=== PATIENT | female | born 1965 | race Caucasian/White ===

== ENCOUNTER → 2022-08-31 23:59 | Outpatient (CLI) | payer MEDICARE, SELFPAY ==
[2022-08-31 19:04] LABS: Basophils % 0.8 % (0.1-2.0); Eosinophils # 0.1 K/mm3 (0.0-0.4); Eosinophils % 1.3 % (0.1-12.0); Hematocrit 42.4 % (37.0-47.0); Hemoglobin 13.5 g/dL (12.2-16.2); Lymphocytes # 1.7 K/mm3 (0.7-4.5); Mean Corpuscular HGB Conc 31.9 g/dL (31.8-35.4); Mean Corpuscular Hemoglobin 28.9 pg (27.0-31.2); Mean Corpuscular Volume 90.6 fl (81-99); Mean Platelet Volume 9.1 fl (7.4-10.4); Monocytes # 0.2 K/mm3 (0.1-1.0); Monocytes % 4.7 % (1.7-9.3); Neutrophils # 2.8 K/mm3 (1.8-7.8); Neutrophils % 58.2 % (37.0-80.0); Platelet Count 257 K/mm3 (142-424); Red Blood Count 4.68 M/mm3 (4.20-5.40); White Blood Count 4.9 K/mm3 (4.8-10.8)
[2022-08-31 19:14] LABS: Alanine Aminotransferase 23 U/L (12-78); Albumin Level 4.5 g/dl (3.5-5.0); Albumin/Globulin Ratio 1.6 (1.1-1.8); Alkaline Phosphatase 122 U/L (38-126); Anion Gap 9.3 mEq/L (5-15); Aspartate Amino Transferase 36 U/L (14-36); Bilirubin,Total 0.3 mg/dl (0.2-1.3); Blood Urea Nitrogen 13 mg/dl (7-17); Calcium 9.2 mg/dl (8.4-10.2); Carbon Dioxide 33 mmol/L (22.0-30.0); Chloride 97 mmol/L (98-107); Estimated Glomerular Filt Rate 87 ml/min (>60); GFR (African American) 105 ML/MIN (>60); Globulin 2.8 g/dL (1.3-3.2); Glucose 88 mg/dl (74-100); Potassium 4.3 mmoL/L (3.5-5.1); Sodium 135 mmol/L (136-145); Total Protein,Serum 7.3 g/dl (6.3-8.2)
[2022-08-31 19:46] LABS: Thyroid Stimulating Hormone 2.19 uIU/mL (0.465-4.68)
[2022-08-31 20:05] LABS: Vitamin B12 673 pg/mL (239-931)
[2022-09-05 04:07] LABS: Hep A Ab, IgM NEGATIVE; Hepatitis B Core Antibody IgM NEGATIVE; Hepatitis B Surface Antigen NEGATIVE; Hepatitis C Antibody NON REACTIVE
== END ==
PROVIDERS: PCP Family Medicine; Visit Provider Family Medicine
DX: Z00.00 Encounter for general adult medical examination without abnormal findings (principal); M25.50 Pain in unspecified joint; R56.1 Post traumatic seizures; F43.10 Post-traumatic stress disorder, unspecified; F17.210 Nicotine dependence, cigarettes, uncomplicated; Z79.899 Other long term (current) drug therapy
CPT/HCPCS: 80053; 80074; 82607; 84443; 85025

== ENCOUNTER → 2023-02-12 12:00 | Outpatient (CLI) | payer MEDICARE, SELFPAY ==
[2023-02-12 18:18] LABS: Chloride 104 mmol/L (98-107)
[2023-02-12 18:19] LABS: Potassium 4.4 mmoL/L (3.5-5.1); Sodium 141 mmol/L (136-145)
[2023-02-12 18:21] LABS: Alanine Aminotransferase 22 U/L (12-78); Aspartate Amino Transferase 33 U/L (14-36); Blood Urea Nitrogen 13 mg/dl (7-17); Estimated Glomerular Filt Rate 87 ml/min (>60); GFR (African American) 105 ML/MIN (>60)
[2023-02-12 18:22] LABS: Albumin Level 4.3 g/dl (3.5-5.0); Albumin/Globulin Ratio 1.3 (1.1-1.8); Alkaline Phosphatase 145 U/L (38-126); Anion Gap 10.4 mEq/L (5-15); Bilirubin,Total 0.3 mg/dl (0.2-1.3); Calcium 9.1 mg/dl (8.4-10.2); Carbon Dioxide 31 mmol/L (22.0-30.0); Globulin 3.3 g/dL (1.3-3.2); Glucose 106 mg/dl (74-100); Total Protein,Serum 7.6 g/dl (6.3-8.2)
== END ==
PROVIDERS: PCP Family Medicine; Visit Provider Family Medicine
DX: F43.10 Post-traumatic stress disorder, unspecified (principal); G40.909 Epilepsy, unspecified, not intractable, without status epilepticus
CPT/HCPCS: 80053

== ENCOUNTER → 2023-05-21 16:17 | Outpatient (CLI) | payer MEDICARE, MEDICAID, SELFPAY ==
--- NOTE | 2023-05-21 16:18 | MM_ITS ---
PROCEDURE INFORMATION: Exam: MG Bilateral Screening 3D Mammography Exam date and time: 05/21/2023 4:07 PM Age: 58 years old Clinical indication: Screening mammogram TECHNIQUE: Imaging protocol: Bilateral Screening tomosynthesis and 2D mammography including computer-aided detection (CAD) when performed. COMPARISON: 1. MG MM MAMMO DIGITAL JAKY SCREEN BILAT 05/15/2022 9:41 AM 2. MG MM MAMMO DIGITAL SCREENING W CAD BILAT 12/03/2019 7:40 AM FINDINGS: MAMMOGRAPHY: Breast composition: There are scattered areas of fibroglandular density. Mass: None. Architectural distortion: No new or suspicious architectural distortion. Calcifications: No new or suspicious calcifications are present Asymmetric density: No new or suspicious asymmetric density is present Skin thickening: None. Axillary adenopathy: None. IMPRESSION: No mammographic evidence of malignancy. Recommend annual screening mammography unless otherwise clinically indicated. ASSESSMENT: BI-RADS category 1: Negative
== END ==
PROVIDERS: PCP Family Medicine; Visit Provider Family Medicine
DX: Z12.31 Encounter for screening mammogram for malignant neoplasm of breast (principal)
CPT/HCPCS: 77063; 77067

== ENCOUNTER 2023-07-23 19:19 | Outpatient (CLI) | payer MEDICARE, MEDICAID, SELFPAY ==
[2023-07-23 19:49] LABS: Alanine Aminotransferase 22 U/L (12-78); Albumin Level 4.1 g/dl (3.5-5.0); Albumin/Globulin Ratio 1.5 (1.1-1.8); Alkaline Phosphatase 157 U/L (38-126); Aspartate Amino Transferase 32 U/L (14-36); Bilirubin,Total 0.2 mg/dl (0.2-1.3); Blood Urea Nitrogen 12 mg/dl (7-17); Calcium 9.2 mg/dl (8.4-10.2); Carbon Dioxide 35 mmol/L (22.0-30.0); Chloride 105 mmol/L (98-107); Estimated Glomerular Filt Rate 103 ml/min (>60); GFR (African American) 125 ML/MIN (>60); Globulin 2.8 g/dL (1.3-3.2); Glucose 97 mg/dl (74-100); Sodium 141 mmol/L (136-145); Total Protein,Serum 6.9 g/dl (6.3-8.2)
== END 2023-07-23 23:59 ==
LOC: LAB.DROPOF 19:19
PROVIDERS: PCP Family Medicine; Visit Provider Family Medicine
DX: F43.10 Post-traumatic stress disorder, unspecified (principal); G40.909 Epilepsy, unspecified, not intractable, without status epilepticus
CPT/HCPCS: 80053

== ENCOUNTER 2023-09-18 18:37 | Outpatient (CLI) | payer MEDICARE, MEDICAID, SELFPAY | END 2023-09-18 23:59 | disposition home or self-care (01) | LOC: LAB.DROPOF 18:40 | PROVIDERS: PCP Obstetrics & Gynecology; Visit Provider Obstetrics & Gynecology | DX: Z01.419 Encounter for gynecological examination (general) (routine) without abnormal findings (principal) ==

== ENCOUNTER 2024-06-01 16:14 | Outpatient (CLI) | payer MEDICARE, MEDICAID, SELFPAY ==
--- NOTE | 2024-06-01 16:14 | MM_ITS ---
PROCEDURE INFORMATION: Exam: MG Bilateral Screening 3D Mammography Exam date and time: 06/01/2024 4:04 PM Age: 59 years old Clinical indication: Screening examination. TECHNIQUE: Imaging protocol: Bilateral Screening tomosynthesis and 2D mammography including computer-aided detection (CAD) when performed. COMPARISON: 1. MG MM DIG SCREENING MAMM BI W/CAD 05/21/2023 4:07 PM 2. MG MM MAMMO DIGITAL JAKY SCREEN BILAT 05/15/2022 9:41 AM FINDINGS: MAMMOGRAPHY: Breast composition: There are scattered areas of fibroglandular density. Mass: None. Architectural distortion: None. Calcifications: No suspicious calcifications. Asymmetric density: None. Skin thickening: None. Axillary adenopathy: None. IMPRESSION: No mammographic evidence of malignancy. Annual screening is recommended unless otherwise clinically indicated. ASSESSMENT: BI-RADS Category 1: Negative.
== END 2024-06-01 23:59 | disposition home or self-care (01) ==
LOC: RAD 16:14
PROVIDERS: PCP Family Medicine; Visit Provider Nurse Practitioner
DX: Z12.31 Encounter for screening mammogram for malignant neoplasm of breast (principal)
CPT/HCPCS: 77063; 77067

== ENCOUNTER 2024-07-31 10:20 | Outpatient (CLI) | payer MEDICARE, MEDICAID, SELFPAY ==
[2024-07-31 20:03] LABS: HIV Combo NEGATIVE (Negative)
[2024-07-31 20:13] LABS: Hepatitis C Ab Qual. W/ RFX NEGATIVE (Negative)
== END 2024-07-31 23:59 | disposition home or self-care (01) ==
LOC: LAB.DROPOF 08-03 10:21
PROVIDERS: PCP Family Medicine; Visit Provider Family Medicine
DX: Z11.59 Encounter for screening for other viral diseases (principal)
CPT/HCPCS: 86803; 87389

== ENCOUNTER 2024-10-07 15:55 | Outpatient (CLI) | payer MEDICARE, MEDICAID, SELFPAY ==
[2024-10-07 19:06] LABS: Alanine Aminotransferase 20 U/L (12-78); Albumin Level 4.4 g/dl (3.5-5.0); Albumin/Globulin Ratio 1.6 (1.1-1.8); Alkaline Phosphatase 154 U/L (38-126); Anion Gap 6.1 mEq/L (5-15); Aspartate Amino Transferase 29 U/L (14-36); Bilirubin,Total 0.3 mg/dl (0.2-1.3); Blood Urea Nitrogen 14 mg/dl (7-17); Calcium 9.4 mg/dl (8.4-10.2); Carbon Dioxide 31 mmol/L (22.0-30.0); Chloride 104 mmol/L (98-107); Estimated Glomerular Filt Rate 103 ml/min (>60); GFR (African American) 125 ML/MIN (>60); Globulin 2.7 g/dL (1.3-3.2); Glucose 102 mg/dl (74-100); Potassium 4.1 mmoL/L (3.5-5.1); Sodium 137 mmol/L (136-145); Total Protein,Serum 7.1 g/dl (6.3-8.2)
== END 2024-10-07 23:59 | disposition home or self-care (01) ==
LOC: LAB.DROPOF 10-08 08:37
PROVIDERS: PCP Obstetrics & Gynecology; Visit Provider Obstetrics & Gynecology
DX: Z79.899 Other long term (current) drug therapy (principal)
CPT/HCPCS: 80053

== ENCOUNTER 2025-05-25 08:54 | Outpatient (CLI) | payer MEDICARE, MEDICAID, SELFPAY ==
--- OUTSIDE RECORDS SUMMARY | 2025-04-23 08:20 | XMS_ITS | Encounter Summary ---
Author Organization [place] [address] Care Team Providers Care Psychiatry Instructor Name Role Phone Unavailable Primary Care Provider Unavailabl e Reason for Referral * Mammography (Routine) - Pending Review Specialty Diagnoses / Procedures Referred By Lisa lamas Referred To Contact Radiology Diagnoses Encounter for screening mammogram for malignant neoplasm of breast Procedures MM MAMMO DIGITAL JAKY SCREEN Grant Arthur MD [facility] [place] [address] Phone: tel: fax: Referral ID Status Reason Start Date Expiration Date V isits Requested Visits Authorized [id number] Pending Review 04/19/2025 04/19/2027 1 1 Reason for Visit * Mammography (Routine) - Pending Review Specialty Diagnoses / Procedures Referred By Lisa lamas Referred To Contact Radiology Diagnoses Encounter for screening mammogram for malignant neoplasm of breast Procedures MM MAMMO DIGITAL JAKY SCREEN Grant Arthur MD [facility] [place] [address] Phone: tel: fax: Referral ID Status Reason Start Date Expiration Date V isits Requested Visits Authorized [id number] Pending Review 04/19/2025 04/19/2027 1 1 Encounter Details Date Type Department Care Team (Latest Contact Info) Description 04/23/2025 8:20 AM EST - 04/23/2025 11:59 PM EST Hospital Encounter [facility] [address] [place] [address] Grant Griffith MD [address] [place] [facility] [address] [place] [address] Encounter for screening mammogram for malignant neoplasm of breast Discharge Disposition: Home or Self Care Social History Tobacco Use Types Packs/Day Years Used Date Smoking Tobacco: Every Day Cigarettes 1 38.9 Started: 06/23/1986 Smokeless Tobacco: Never Alcohol Use Standard Drinks/Week Comments No 0 (1 standard drink = 0.6 oz pur e alcohol) PHQ-2 Answer Date Recorded PHQ-2 Score 0 05/21/2019 Comments No Sex and Gender Information Value Date Recorded Sex Assigned at Female 04/24/2025 6:54 PM EST Legal Sex Female 9:48 PM EDT Gender Identity Not on file Sexual Orientation Not on file documented as of this encounter Last Filed Vital Signs Vital Sign Reading Time Taken Comments Blood Pressure - - Pulse - - Temperature - - Respiratory Rate - - Oxygen Saturation - - Inhaled Oxygen Concentration - - Weight 54.9 kg (121 lb) 04/23/2025 8:23 AM EST Height 154.9 cm (5' 1 ) 04/23/2025 8:23 AM EST Body Mass Index 22.86 04/23/2025 8:23 AM EST documented in this encounter Functional Status * Is the person deaf or does he/she have serious difficulty hearing? Answer Date of Assessment Author No 05/21/2019 8:55 AM EST Francine Huntley RMA * Is the person blind or does he/she have serious difficulty seeing even when wearing glasses? Answer Date of Assessment Author No 05/21/2019 8:55 AM EST Francine Huntley RMA * Does this person have serious difficulty walking or climbing stairs? Answer Date of Assessment Author No 05/21/2019 8:55 AM Francine Thompson RMA * Does this person have difficulty dressing or bathing? Answer Date of Assessment Author No 05/21/2019 8:55 AM Francine Thompson RMA * Because of a physical, mental or emotional condition, does this person have difficulty doing errands alone such as visiting a doctor's office or shopping? Answer Date of Assessment Author No 05/21/2019 8:55 AM Francine Thompson RMA documented as of this encounter Mental Status * Because of a physical, mental or emotional condition, does this person have serious difficulty concentrating, remembering or making decisions? Answer Entry Date Author No 05/21/2019 8:55 AM Francine Thompson RMA documented in this encounter Medications at Time of Discharge atorvastatin (LIPITOR) 20 mg Oral TabletIndications:Hy perlipidemia, unspecified hyperlipidemia type TAKE 1 TABLET EVERY DAY 90 Tab 1 03/29/2020 diphenhydrAMINE (BENADRYL) 25 mg Oral Tablet Take 1 Tab by mouth every 8 hours as needed for Sleep. 12 Tab 06/27/2016 estradioL (ESTRACE) 0.5 mg Oral TabletIndications:At rophic vaginitis TAKE 1 TABLET EVERY DAY 90 Tab 05/16/2020 fish oil-omega-3 fatty acids 340-1,000 mg capsule Take 2 g by mouth daily. hydrOXYzine (ATARAX) 10 mg Oral TabletIndications:GA D (generalized anxiety disorder) TAKE 1 TABLET EVERY NIGHT 90 Tab 2 12/24/2019 levETIRAcetam (KEPPRA) 500 mg Oral Tablet Take 1 Tablet by mouth 2 times daily. 180 Tablet 2 03/27/2022 LEVOthyroxine (SYNTHROID) 25 mcg Oral TabletIndications:Hy pothyroidism (acquired) Take 1 Tab by mouth daily. 90 Tab 1 05/21/2019 melatonin 5 mg Oral Tablet Take 1-2 Tabs by mouth nightly as needed. MULTI-VITAMIN ORAL Take by mouth. mv-min/iron/folic/ca lcium/vitK (WOMEN'S MULTIVITAMIN ORAL) Take by mouth daily. ondansetron (ZOFRAN-ODT) 4 mg Oral Tablet, Rapid DissolveIndications: Migraine without aura and without status migrainosus, not intractable Take 1 Tab by mouth every 8 hours as needed for Nausea. 45 Tab 2 03/05/2018 OXcarbazepine (TRILEPTAL) 300 mg Oral TabletIndications:Ep ilepsy, focal (HCC) Take 1 Tablet by mouth 2 times daily. 180 Tablet 2 03/27/2022 pantoprazole (PROTONIX) 40 mg Oral Tablet, Delayed Release (E.C.)Indications:Ga stroesophageal reflux disease Take 1 Tablet by mouth daily. 90 Tablet 2 03/27/2022 propranoloL (INDERAL LA) 80 mg Oral Capsule,Sustained Action 24 hrIndications:Chroni c nonintractable headache, unspecified headache type TAKE 1 CAPSULE EVERY DAY 90 Cap 2 12/24/2019 sertraline (ZOLOFT) 100 mg Oral TabletIndications:GA D (generalized anxiety disorder) Take 2 Tablets by mouth daily. 180 Tablet 2 03/27/2022 sodium,potassium,mag sulfates 17.5-3.13-1.6 gram Oral Recon Soln Take 6 oz by mouth 2 times daily. 177 mL 07/18/2022 tiZANidine (ZANAFLEX) 4 mg Oral TabletIndications:Ch ronic nonintractable headache, unspecified headache type Take 1 Tablet by mouth 3 times daily. 270 Tablet 03/27/2022 UNKNOWN TO PATIENT Eye drops for redness relief prn documented as of this encounter Discharge Disposition Disposition Code Departure Means Destination Home or Self Care documented in this encounter Plan of Treatment Upcoming Encounters Date Type Department Care Team (Late st Contact Info) Description 06/07/2025 10:00 AM EST Office Visit [facility] Neurology [facility] [address] [place] [address] Benjamin Terry MD [address] [place] [address] documented as of this encounter Goals Goal Patient Goal Type Associated Problems Recent Progress Patient-Stated? Author Maintain a healthy diet, exercise regularly and maintain an ideal body weight General No Francine Huntley RMA Stay Tobacco Free Lifestyle No Francine Huntley RMA documented as of this encounter Procedures Procedure Name Priority Date/Time Associated Diagnosis Comments MM MAMMO DIGITAL JAKY SCREEN BILAT Routine 04/23/2025 8:24 AM EST Encounter for screening mammogram for malignant neoplasm of breast documented in this encounter Results * MM MAMMO DIGITAL JAKY SCREEN BILAT (04/23/2025 8:24 AM EST) Anatomical Region Laterality Modality Breast Bilateral Mammography 04/23/2025 8:24 AM EST Impressions 04/26/2025 7:32 AM EST Benign ([id number]) RECOMMENDATION: Routine Screening Mammogram in 1 Year Bilateral . . COMMENTS: For patients with heterogeneously dense, or extremely dense breast tissue: At [facility], all mammography studies are performed using tomosynthesis. Tomosynthesis is considered a supplemental screening tool for dense breast tissue. Breast MRI and complete breast ultrasound are also considered supplemental tests for dense breast tissue. These may not be covered by insurance. DISCLAIMER *The patient was notified by MyChart or mail of the results for this examination. *The patient's information was entered into a reminder system with a target due date for the next breast imaging, in accordance with the [place] [employer] and the Society of Breast Imaging recommendations. *Breast Imaging has a false negative rate of 15%. *Any patient with a palpable abnormality, unexplained by breast imaging, should be managed on a clinical basis by the attending physician. Narrative 04/26/2025 7:32 AM EST EXAM: MM MAMMO DIGITAL JAKY SCREEN BILAT EXAM DATE: 04/23/2025 8:24 AM INDICATION: Z12.31-Encounter for screening mammogram for malignant neoplasm of [id number] COMPARISON STUDIES: Compared with prior studies the most recent being 05/15/2022 MM MAMMO DIGITAL JAKY SCREEN BILAT at [facility] 12/03/2019 MM MAMMO DIGITAL SCREENING W CAD BILAT at [facility] 11/24/2018 MM MAMMO DIGITAL SCREENING W CAD BILAT at [facility] TISSUE DENSITY: There are scattered areas of fibroglandular density. FINDINGS: No mammographic evidence of malignancy. Scattered vascular calcification is noted on the right, unchanged. Procedure Note Gama Barajas MD - 04/26/2025 EXAM: MM MAMMO DIGITAL JAKY SCREEN BILAT EXAM DATE: 04/23/2025 8:24 AM INDICATION: Z12.31-Encounter for screening mammogram for malignantneoplasm of [id number] COMPARISON STUDIES: Compared with prior studies the most recent being 05/15/2022 MM MAMMO DIGITAL JAKY SCREEN BILAT at [facility] 12/03/2019 MM MAMMO DIGITAL SCREENING W CAD BILAT at [facility] 11/24/2018 MM MAMMO DIGITAL SCREENING W CAD BILAT at [facility] TISSUE DENSITY: There are scattered areas of fibroglandular density. FINDINGS: No mammographic evidence of malignancy. Scattered vascular calcification is noted on the right, unchanged. IMPRESSION: Benign ([id number]) RECOMMENDATION: Routine Screening Mammogram in 1 Year Bilateral . . COMMENTS: For patients with heterogeneously dense, or extremely dense breast tissue:At [facility], all mammography studies are performed usingtomosynthesis. Tomosynthesis is considered a supplemental screening tool for densebreast tissue. Breast MRI and complete breast ultrasound are also considered supplemental tests for dense breast tissue. These may not be covered by insurance. DISCLAIMER *The patient was notified by MyChart or mail of the results for this examination. *The patient's information was entered into a reminder system with atarget due date for the next breast imaging, in accordance with the [place] [employer] and the Society of Breast Imaging recommendations. *Breast Imaging has a false negative rate of 15%. *Any patient with a palpable abnormality, unexplained by breast imaging,should be managed on a clinical basis by the attending physician. Grant Griffith MD IMG MAMMOGRAPHY ORDERABLE S Final Result documented in this encounter Visit Diagnoses Diagnosis Encounter for screening mammogram for malignant neoplasm of breast Other screening mammogram documented in this encounter
[2025-05-25 19:10] LABS: Alanine Aminotransferase 20 U/L (12-78); Albumin Level 4.5 g/dl (3.5-5.0); Albumin/Globulin Ratio 1.7 (1.1-1.8); Alkaline Phosphatase 114 U/L (38-126); Anion Gap 8.8 mEq/L (5-15); Aspartate Amino Transferase 32 U/L (14-36); Bilirubin,Total 0.5 mg/dl (0.2-1.3); Blood Urea Nitrogen 17 mg/dl (7-17); Calcium 9.3 mg/dl (8.4-10.2); Carbon Dioxide 31 mmol/L (22.0-30.0); Chloride 100 mmol/L (98-107); Creatinine,Serum 0.80 mg/dl (0.52-1.04); Estimated Glomerular Filt Rate 74 ml/min (>60); GFR (African American) 89 ML/MIN (>60); Globulin 2.7 g/dL (1.3-3.2); Glucose 123 mg/dl (74-100); Potassium 3.8 mmoL/L (3.5-5.1); Sodium 136 mmol/L (136-145); Total Protein,Serum 7.2 g/dl (6.3-8.2)
--- OUTSIDE RECORDS SUMMARY | 2025-05-28 09:00 | XMS_ITS | Encounter Summary ---
Author Organization [place] [address] Care Team Providers Care Electronic Components Assembler Name Role Phone Unavailable Primary Care Provider Unavailabl e Reason for Visit * Reason Onset Date Comments Medication Refill 04/25/2025 Encounter Details Date Type Department Care Team (Late st Contact Info) Description 04/24/[address] [facility] [address] [place] [id number] Shreyas Azevedo MD [address] [place] [address] Medication Refill Social History Tobacco Use Types Packs/Day Years [...] on file documented as of this encounter Functional Status * Is the person deaf or does he/she have serious difficulty hearing? Answer Date of Assessment Author No 05/21/2019 8:55 AM EST Francine Huntley RMA * Is the person blind or does he/she have serious difficulty seeing even when wearing glasses? Answer Date of Assessment Author No 05/21/2019 8:55 AM Francine Thompson RMDeana * Does this person have serious difficulty walking or climbing stairs? Answer Date of Assessment Author No 05/21/2019 8:55 AM EST Francine Huntley RMA * Does this person have difficulty dressing or bathing? Answer Date of Assessment Author No 05/21/2019 8:55 AM EST [place] FrancineRADHA * Because of a physical, mental or emotional condition, does this person have difficulty doing errands alone such as visiting a doctor's office or shopping? Answer Date of Assessment Author No 05/21/2019 8:55 AM JASBIR [place] FrancineRADHA documented as of this encounter Mental Status * Because of a physical, mental or emotional condition, does this person have serious difficulty concentrating, remembering or making decisions? Answer Entry Date Author No 05/21/2019 8:55 AM EST Francine Huntley RADHA documented in this encounter Plan of Treatment Upcoming Encounters Date Type Department Care Team (Late st Contact Info) Description 06/07/2025 10:00 AM EST Office Visit SE[facility] Neurology [facility] [address] [place] [address] Benjamin Terry MD [address] [place] [address] documented as of this encounter Goals Goal Patient Goal Type Associated Problems Recent Progress Patient-Stated? Author Maintain a healthy diet, exercise regularly and maintain an ideal body weight General No Francine Huntley RMA Stay Tobacco Free Lifestyle No Francine Huntley RMA documented as of this encounter Visit Diagnoses Diagnosis Migraine without aura and without status migrainosus, not intractable Migraine without aura, without mention of intractable migraine without mention of status migrainosus Chronic nonintractable headache, unspecified headache type JAN (generalized anxiety disorder) Generalized anxiety disorder documented in this encounter
--- OUTSIDE RECORDS SUMMARY | 2025-05-28 09:00 | XMS_ITS | Clinical Summary ---
Author Organization [facility] Address [address] [place] [address] Care Team Providers Care Infant Childcare Provider Name Role Phone Janeen Alegria MD Primary Care Provider [phone] Source Comments This information has been disclosed to you from confidential records protectedfrom disclosure by state law. You shall make no further disclosure of thisinformation without the specific, written, and informed release of theindividual to whom it pertains, or as otherwise permitted by law. A generalauthorization for the release of medical or other information is not sufficientfor the purposes of therelease of HIV test results or diagnoses. [id number] Allergies Active Allergy Reactions Criticality Noted Date Comments Aspirin High 06/20/2013 Hives, itching Codeine High 06/20/2013 rash Nsaids (Non-Steroidal Anti-Inflammatory Drug) Medium 06/20/2013 History of Hepatitis A Medications fish oil-omega-3 fatty acids 300-1,000 mg capsule Take 2 g by mouth daily. Active valproic acid (DEPAKENE) 250 mg capsule Take 750 mg by mouth 3 times a day. Active gabapentin (NEURONTIN) 300 MG capsule Take 300 mg by mouth 3 times a day. Active propranolol (INDERAL) 80 MG tablet Take 80 mg by mouth 3 times a day. Active sertraline (ZOLOFT) 100 MG tablet Take 100 mg by mouth daily. Active tiZANidine (ZANAFLEX) 4 MG capsule Take 4 mg by mouth 3 times a day. Active promethazine (PHENERGAN) 25 MG tablet Take 25 mg by mouth every 6 hours as needed for Nausea. Active multivitamin (MULTIVITAMIN) tablet Take 1 tablet by mouth daily. Active HYDROcodone-acet aminophen (NORCO) 5-325 mg per tablet Take 1 tablet by mouth every 4 hours. Active Social History Tobacco Use Types Packs/Day Years Used Date Smoking Tobacco: Every Day Cigarettes Alcohol Use Standard Drinks/Week Comments No 0 (1 standard drink = 0.6 oz pur e alcohol) Comments No Sex and Gender Information Value Date Recorded Sex Assigned at Not on file Legal Sex Female 4:14 PM EST Gender Identity Not on file Sexual Orientation Not on file Last Filed Vital Signs Vital Sign Reading Time Taken Comments Blood Pressure 123/53 01/05/2014 5:00 PM EDT Pulse 62 01/05/2014 5:15 PM EDT Temperature 36.4 C (97.5 F) 01/05/2014 5:15 PM EDT Respiratory Rate 12 01/05/2014 5:15 PM EDT Oxygen Saturation 97% 01/05/2014 5:15 PM EDT Inhaled Oxygen Concentration 97% 01/05/2014 5 :15 PM EDT Weight 65.8 kg (145 lb 1 oz) 01/05/2014 11:30 AM EDT Height 154.9 cm (5' 1 ) 06/20/2013 9:52 AM EST Body Mass Index 27.41 06/20/2013 9:52 AM EST Plan of Treatment Not on file Medical Devices Implanted Type Area Engineering Consultant Device Identifier Shelf Expiration Date Model / Serial / Lot Allograft Ovation Lg - [id number] Implanted:Qty: 1 on 01/05/2014 by David Salas DPM at [facility] Graft Left: [facility] 09/30/2015 [id number] / / [id number] Nexfix Screw - [id number] Implanted:Qty: 2 on 01/05/2014 by David Salas DPM at [facility] Screw Left: [employer] [id number] / / Explanted Type Area Engineering Consultant Device Identifier Shelf Expiration Date Model / Serial / Lot Kwire 1.1mm - [id number] Explanted:Qty: 2 on 01/05/2014 by David Salas DPM at [facility] Wire Left: [employer] [id number] / / Insurance [employer] G[employer]US MEDICARE Care Teams Infant Childcare Provider Relationship Specialty Start Date End Date Janeen Alegria MD PCP - General Family Medicine 01/05/14
--- OUTSIDE RECORDS SUMMARY | 2025-05-28 09:00 | XMS_ITS | Continuity of Care Document ---
Author Organization [facility] Address [address] [place] [address] Phone Care Team Providers Care Capsule Filling Machine Operator Name Role Phone Unavailable Primary Care Provider Unavailabl e Encounters Date Type Department Care Team Description 04/24/2025 Refill [facility] [address] [place] [address] Shreyas Azevedo MD Medication Refill 04/24/2025 Refill [facility] [address] [place] [address] Melissa Funes MD Medication Refill 04/23/2025 8:20 AM EST - 04/23/2025 11:59 PM [facility] Hospital Encounter [place] [facility] [address] [place] [address] Grant Griffith MD Encounter for screening mammogram for malignant neoplasm of breast Discharge Disposition: Home or Self Care 07/18/2022 Telephone [facility] [address] [facility] [address] [facility] [place] [address] Grayson Christine MD Colonoscopy; Medication Management 06/11/2022 Refill [facility] [address] [place] [address] Melissa Funes MD Medication Refill 05/15/2022 Travel 05/15/2022 9:29 AM EST - 05/15/2022 11:59 PM EST Hospital Encounter [facility] [address] [place] [address] Gokul Cardona MD Encounter for screening mammogram for malignant neoplasm of breast Discharge Disposition: Home or Self Care 03/27/2022 Refill [facility] [place] [address] Melvina Lopez RMA Medication Refill 06/01/2020 Refill [facility] 100 [facility] [place] [address] Shreyas Azevedo MD Medication Refill 05/14/2020 Refill [facility] [address] [facility] [place] [address] Shreyas Azevedo MD Medication Refill 03/28/2020 Refill [facility] [address] [facility] [place] [address] Shreyas Azevedo MD Medication Refill 03/24/2020 Refill [facility] 100 [facility] [place] [address] Shreyas Azevedo MD Medication Refill 2020 Refill [facility] 100 [facility] [place] [address] Shreyas Azevedo MD Medication Refill 12/23/2019 Refill [facility] [address] [facility] [place] [address] Shreyas Azevedo MD Medication Refill 12/17/2019 Travel 12/17/2019 10:30 AM EDT Office Visit [facility] [address] [facility] [place] [address] Shreyas Azevedo MD Annual physical exam (Primary Dx); Chronic nonintractable headache, unspecified headache type; Epilepsy, focal (HCC); JAN (generalized anxiety disorder); Hypothyroidism (acquired); Hyperlipidemia, unspecified hyperlipidemia type 12/03/2019 Travel 12/03/2019 7:30 AM EDT - 12/03/2019 11:59 PM EDT Hospital Encounter [facility] [address] [place] [address] Shreyas Azevedo MD Encounter for screening mammogram for malignant neoplasm of breast Discharge Disposition: Home or Self Care 11/24/2019 Telephone [facility] [address] [place] [address] Shreyas Azevedo MD Other 11/18/2019 Travel 11/05/2019 Refill [facility] [address] [place] [address] Shreyas Azevedo MD Medication Refill 10/15/2019 Travel 10/15/2019 Patient Outreach [facility] [address] [place] [address] Shreyas Azevedo MD Central Patient Navigator Outreach 10/09/2019 Refill [facility] [address] [place] [address] Shreyas Azevedo MD Medication Refill 10/08/2019 Refill [facility] [address] [place] [address] Shreyas Azevedo MD Medication Refill 06/09/2019 Refill [facility] [address] [place] [address] Shreyas Azevedo MD Medication Refill 05/25/2019 Orders Only [facility] [address] [place] [address] Shreyas Azevedo MD Chronic nonintractable headache, unspecified headache type 05/22/2019 1:40 PM EST - 05/22/2019 11:59 PM EST Hospital Encounter [facility] [address] [place] [address] Hypothyroidism (acquired); Hyperlipidemia, unspecified hyperlipidemia type Discharge Disposition: Home or Self Care 05/21/2019 8:45 AM EST Office Visit [facility] [address] [place] [address] Shreyas Azevedo MD Hypothyroidism (acquired) (Primary Dx); Atrophic vaginitis; Gastroesophageal reflux disease, esophagitis presence not specified; Chronic nonintractable headache, unspecified headache type; JAN (generalized anxiety disorder); Hyperlipidemia, unspecified hyperlipidemia type; Flu vaccine need; Epilepsy, focal (HCC) 05/20/2019 Refill [facility] [address] [place] [address] Shreyas Azevedo MD Medication Refill 05/20/2019 Patient Outreach [facility] [address] [place] [address] Shreyas Azevedo MD Central Patient Navigator Outreach 02/11/2019 8:33 AM EDT - 02/11/2019 11:59 PM EDT Hospital Encounter [facility] [address] [place] [address] Provider, Not In Epic Special sensory attacks (HCC); Shakes; Neuralgia; Cerebral aneurysm, nonruptured; Neck rigid Discharge Disposition: Home or Self Care 01/19/2019 Refill [facility] [address] [place] [address] Shreyas Azevedo MD Medication Refill 12/17/2018 8:15 AM EDT Office Visit [facility] [address] [place] [address] Shreyas Azevedo MD Annual physical exam (Primary Dx) 12/09/2018 Travel 12/09/2018 8:30 AM EDT - 12/09/2018 9:00 AM EDT Surgery [facility] [place] [address] Grayson Christine MD COLONOSCOPY-ENDO DEPT ONLY (ANESTHESIA) 12/09/2018 8:15 AM EDT Anesthesia Event [facility] [place] [address] Todd Sr MD Braxton-Brown, Jennifer, APRN 12/09/2018 6:07 AM EDT - 12/09/2018 9:30 AM EDT Hospital Encounter [facility] [place] [address] Grayson Christine MD Special screening for malignant neoplasms, colon Discharge Disposition: Home or Self Care 12/03/2018 Telephone [facility] [address] [facility] [address] [place] [address] Grayson Christine MD Other 11/24/2018 12:23 PM EDT - 11/24/2018 11:59 PM EDT Hospital Encounter [facility] [address] [place] [address] Encounter for screening mammogram for malignant neoplasm of breast Discharge Disposition: Home or Self Care 11/12/2018 11:00 AM EDT Office Visit [facility] [address] [place] [address] Shreyas Azevedo MD Epilepsy, focal (HCC) (Primary Dx); Nonintractable epilepsy without status epilepticus, unspecified epilepsy type (HCC); History of traumatic brain injury 11/06/2018 12:20 PM EDT - 11/06/2018 11:59 PM EDT Hospital Encounter [facility] [address] [place] [address] Nonintractable epilepsy without status epilepticus, unspecified epilepsy type (HCC); Hypothyroidism (acquired); Hyperlipidemia, unspecified hyperlipidemia type Discharge Disposition: Home or Self Care 11/03/2018 Refill [facility] [address] [place] [address] Shreyas Azevedo MD Medication Refill 10/21/2018 Telephone [facility] [address] [place] [address] Deyvi Moreno, Other 10/21/2018 Telephone [facility] [address] [place] [address] Stormy Read MD Colonoscopy (clinical note-screening) 10/13/2018 Patient Outreach [facility] [address] [place] [address] Yari Rodriguez, RN Care Management - Chart Review; ED Follow-Up Call 10/13/2018 10:15 AM EDT Office Visit [facility] [address] [place] [address] Shreyas Azevedo MD Right hip pain (Primary Dx); Screening for colon cancer 10/11/2018 9:25 AM EDT - 10/11/2018 10:38 AM EDT [facility] [address] [place] [address] Yoshi Doyle MD Contusion of right hip, initial encounter (Primary Dx) Discharge Disposition: Home or Self Care 09/01/2018 1:30 PM EDT Office Visit [facility] [address] [place] [address] Shreyas Azevedo MD Screening for colon cancer (Primary Dx); Hyperlipidemia, unspecified hyperlipidemia type; Atrophic vaginitis; History of traumatic brain injury; Nonintractable epilepsy without status epilepticus, unspecified epilepsy type (HCC); Hypothyroidism (acquired); Gastroesophageal reflux disease, esophagitis presence not specified; Chronic nonintractable headache, unspecified headache type; JAN (generalized anxiety disorder) 03/06/2018 4:35 PM EDT - 03/06/2018 11:59 PM EDT Hospital Encounter [facility] [address] [place] [address] History of traumatic brain injury; Annual physical exam; Hyperlipidemia, unspecified hyperlipidemia type Discharge Disposition: Home or Self Care 03/06/2018 Telephone [facility] [address] [place] [address] Shreyas Azevedo MD Prior Authorization 03/05/2018 1:45 PM EDT Office Visit [facility] [address] [place] [address] Shreyas Azevedo MD Annual physical exam (Primary Dx); Hyperlipidemia, unspecified hyperlipidemia type; Atrophic vaginitis; History of traumatic brain injury; Nonintractable epilepsy without status epilepticus, unspecified epilepsy type (HCC); Hypothyroidism (acquired); Migraine without aura and without status migrainosus, not intractable; Gastroesophageal reflux disease, esophagitis presence not specified; Chronic nonintractable headache, unspecified headache type; JAN (generalized anxiety disorder) 02/06/2018 Refill [facility] [address] [place] [address] Shreyas Azevedo MD Medication Refill 01/09/2018 Telephone [facility] [address] [facility] [place] [address] Shreyas Azevedo MD Orders 12/05/2017 Telephone [facility] 100 [facility] [place] [address] Shreyas Azevedo MD Medication Refill 12/03/[address] [place] [address] Shreyas Azevedo MD Medication Refill 12/03/2017 2:15 PM EDT Office Visit [address] [address] Shreyas Azevedo MD Annual physical exam (Primary Dx); History of traumatic brain injury; Nonintractable epilepsy without status epilepticus, unspecified epilepsy type (HCC); Chronic nonintractable headache, unspecified headache type; JAN (generalized anxiety disorder) 12/02/2017 Patient Outreach [address] [place] [address] Yari Rodriguez RN Care Management - Chart Review; ED Follow-Up Call 11/30/2017 5:35 PM EDT - 11/30/2017 7:24 PM EDT [facility] [place] [address] Andrei Cortes MD Right hip pain (Primary Dx) Discharge Disposition: Home or Self Care 11/28/2017 Telephone [place] [address] [place] [address] Shreyas Azevedo MD Appointment Needed 11/19/[address] [address] hSreyas Azevedo MD Medication Refill 09/25/2017 Refill [facility] [address] [place] [address] Shreyas Azevedo MD Medication Refill 09/16/2017 1:45 PM EDT - 09/16/2017 11:59 PM EDT Hospital Encounter [facility] [address] [place] [address] Shreyas Azevedo MD Screening for malignant neoplasm of breast Discharge Disposition: Home or Self Care 07/19/2017 2:00 PM EST - 07/19/2017 11:59 PM EST Hospital Encounter [facility] [address] [place] [address] Screening for colon cancer Discharge Disposition: Home or Self Care 07/18/2017 1:00 PM EST Office Visit [address] [address] Shreyas Azevedo MD Onychomycosis (Primary Dx); History of traumatic brain injury; Nonintractable epilepsy without status epilepticus, unspecified epilepsy type (HCC); Hypothyroidism (acquired); Gastroesophageal reflux disease, esophagitis presence not specified; Chronic nonintractable headache, unspecified headache type; JAN (generalized anxiety disorder); Hyperlipidemia, unspecified hyperlipidemia type; Need for influenza vaccination 07/11/[address] [address] Shreyas Azevedo MD Medication Refill 05/23/2017 9:10 AM EST Office Visit [facility] Crit [address] [place] [address] Sherie Gomez MD Atrophic vaginitis (Primary Dx); Well woman exam with routine gynecological exam; Surgical menopause 05/14/2017 Patient Outreach [address] [address] Yari Rodriguez RN Care Management - Chart Review (ER DISCHARGE REVIEW. ); ED Follow-Up Call 05/14/2017 9:00 AM EST Office Visit [address] [address] Shreyas Azevedo MD Paronychia of finger, left (Primary Dx) 05/12/2017 6:46 AM EST - 05/12/2017 7:54 AM EST Emergency [facility] [address] [place] [address] Jordin Lambert MD Paronychia of left index finger (Primary Dx); Lymphangitis Discharge Disposition: Home or Self Care 05/08/2017 Refill [facility] 100 [facility] [place] [address] Shreyas Azevedo MD Medication Refill 05/06/2017 Refill [facility] [address] [facility] [place] [address] Shreyas Azevedo MD Medication Refill 04/30/2017 2:40 PM EST Office Visit [address] [place] [address] Larry Goodman MD Chronic sinusitis, unspecified location (Primary Dx); Dysosmia 04/03/[address] [place] [address] Larry Goodman MD Results 04/03/[address] [place] [address] Larry Goodman MD Orders 03/29/2017 12:56 PM EDT - 03/29/2017 11:59 PM EDT Hospital Encounter [facility] [address] [place] [address] Larry Goodman MD Chronic sinusitis, unspecified location; Smell disturbance Discharge Disposition: Home or Self Care 03/25/2017 11:15 AM EDT Office Visit [facility] [address] [place] [address] Larry Goodman MD Chronic sinusitis, unspecified location (Primary Dx); Smell disturbance 03/06/2017 Refill [facility] [address] [place] [address] Shreyas Azevedo MD Medication Refill 02/28/2017 9:05 AM EDT - 02/28/2017 11:59 PM EDT Hospital Encounter [facility] [address] [facility] [place] [address] Acute hepatitis B Discharge Disposition: Home or Self Care 02/28/2017 8:00 AM EDT Office Visit [facility] 100 [facility] [place] [address] Shreyas Azevedo MD Gastroesophageal reflux disease, esophagitis presence not specified (Primary Dx); History of traumatic brain injury; Nonintractable epilepsy without status epilepticus, unspecified epilepsy type (HCC); Hypothyroidism (acquired); Chronic nonintractable headache, unspecified headache type; JAN (generalized anxiety disorder); Screening for colon cancer; Need for influenza vaccination; History of hepatitis B 02/27/2017 Refill [facility] 100 [facility] [place] [address] Shreyas Azevedo MD Medication Refill 02/18/2017 10:45 AM EDT Office Visit [facility] [address] [place] [address] Larry Goodman MD Nasal congestion (Primary Dx); Chronic sinusitis, unspecified location 01/03/2017 Orders Only [facility] 100 [facility] [place] [address] Erica Calix, JUDIE Hyperlipidemia, unspecified hyperlipidemia type (Primary Dx) 01/03/2017 Telephone [facility] 100 [place] [address] Shreyas Azevedo MD Other 01/01/2017 Orders Only [facility] [address] [place] [address] Johnna Roque, RMA Hyperlipidemia with target LDL less than 100 (Primary Dx) 01/01/2017 Telephone [facility] 100 [facility] [address] Shreyas Azevedo MD Neck Pain 12/28/2016 6:05 PM EDT - 12/28/2016 11:59 PM EDT Hospital Encounter [facility] [place] [address] Nonintractable epilepsy without status epilepticus, unspecified epilepsy type (HCC); Encounter for therapeutic drug monitoring Discharge Disposition: Home or Self Care 12/28/2016 7:54 AM EDT - 12/28/2016 6:04 PM EDT Hospital Encounter [facility] [address] [place] [address] Acute hepatitis B; Annual physical exam Discharge Disposition: Home or Self Care 12/28/2016 8:00 AM EDT Office Visit [facility] 100 [place] [address] Melissa Funes MD Epilepsy, focal (HCC) (Primary Dx); Nonintractable epilepsy without status epilepticus, unspecified epilepsy type (HCC); Encounter for therapeutic drug monitoring 11/29/2016 Refill [facility] [address] [place] [address] Shreyas Azevedo MD Medication Refill 11/29/2016 8:00 AM EDT Office Visit [facility] 100 [facility] [place] [address] Shreyas Azevedo MD Hypothyroidism (acquired) (Primary Dx); Chronic nonintractable headache, unspecified headache type; JAN (generalized anxiety disorder); History of traumatic brain injury; Nonintractable epilepsy without status epilepticus, unspecified epilepsy type (HCC); Recurrent sinusitis 11/28/2016 Refill [facility] [address] [place] [address] Shreyas Azevedo MD Medication Refill 11/20/2016 Telephone [facility] [address] [place] [address] Shreyas Azevedo MD Other 11/14/2016 Patient Outreach [facility] [address] [place] [address] Yari Rodriguez RN Care Management - Chart Review (ER DISCHARGE REVIEW.); ED Follow-Up Call 11/13/2016 1:27 PM EDT - 11/13/2016 2:05 PM EDT Emergency [facility] [address] [place] [address] Dave Najera MD Acute recurrent maxillary sinusitis (Primary Dx) Discharge Disposition: Left Against Medical Advice 11/13/2016 10:00 AM EDT Office Visit [facility] 100 [facility] [place] [address] Shreyas Azevedo MD Acute bacterial sinusitis (Primary Dx); Suicidal ideation; PTSD (post-traumatic stress disorder); Auditory hallucination; History of skin cancer 11/06/2016 8:45 AM EDT Office Visit [facility] 100 [facility] [place] [address] Shreyas Azevedo MD Neck pain (Primary Dx); Epilepsy, focal (HCC); History of traumatic brain injury 10/24/2016 Telephone [facility] [address] [facility] [place] [address] Shreyas Azevedo MD Referral 10/24/2016 10:00 AM EDT Office Visit [facility] [address] [place] [place] [address] Shreyas Azevedo MD Annual physical exam (Primary Dx); Epilepsy, focal (HCC); Migraine without aura and without status migrainosus, not intractable 10/10/2016 7:29 AM EDT - 10/10/2016 7:54 AM EDT [facility] [address] [place] [address] Deyvi Vasquez MD Dermatitis (Primary Dx) Discharge Disposition: Home or Self Care 09/06/2016 12:40 PM EDT - 09/06/2016 11:59 PM EDT Hospital Encounter [facility] [address] [place] [address] Yony Hair Sr., Visit for screening mammogram Discharge Disposition: Home or Self Care 08/07/2016 3:50 PM EST Office Visit [facility] [address] [place] [address] Omega Lamb MD Acute hepatitis B (Primary Dx) 07/31/2016 Telephone [facility] [address] [facility] [address] [place] [address] Omega Lamb MD Lab Orders 07/31/2016 1:10 PM EST - 07/31/2016 11:59 PM EST Hospital Encounter [facility] [address] [place] [address] Acute hepatitis B Discharge Disposition: Home or Self Care 07/24/2016 1:43 PM EST - 07/24/2016 3:50 PM EST [facility] [address] [place] [address] Jeremi Langford MD Contusion of right wrist, initial encounter (Primary Dx); Contusion of left knee, initial encounter Discharge Disposition: Home or Self Care 07/18/2016 4:28 PM EST - 07/18/2016 6:00 PM EST [facility] [place] [address] Alma Lin MD Chest pain, atypical (Primary Dx); Right arm weakness Discharge Disposition: Home or Self Care 07/15/2016 3:48 PM EST - 07/15/2016 6:15 PM EST [facility] [address] [place] [address] Cielo Perry MD Right arm weakness (Primary Dx); Arm paresthesia, right Discharge Disposition: Home or Self Care 07/08/2016 1:12 PM EST - 07/08/2016 4:38 PM EST [facility] [address] [place] [address] Vivian Patrick MD Acute sinusitis, recurrence not specified, unspecified location (Primary Dx); Other migraine without status migrainosus, not intractable Discharge Disposition: Home or Self Care 07/06/2016 7:17 PM EST - 07/06/2016 11:59 PM EST Hospital Encounter [facility] PROC[facility] [place] [address] Acute hepatitis B; Gastroesophageal reflux disease, esophagitis presence not specified; Nausea and vomiting, intractability of vomiting not specified, unspecified vomiting type Discharge Disposition: Home or Self Care 07/06/2016 2:00 PM EST Office Visit [facility] [address] [facility] [address] [facility] [address] Omega Lamb MD Acute hepatitis B (Primary Dx); Gastroesophageal reflux disease, esophagitis presence not specified; Nausea and vomiting, intractability of vomiting not specified, unspecified vomiting type 07/05/2016 Patient Outreach [facility] [address] [place] [address] Kenyatta Wright Deana ED Follow-Up Call 07/02/2016 3:10 PM EST - 07/02/2016 6:08 PM EST Emergency [address] [address] Chan Hernandez MD Diffuse abdominal pain (Primary Dx); Elevated liver enzymes; Polysubstance abuse (HCC) Discharge Disposition: Home or Self Care 06/29/[address] [facility] [address] Eriberto Pittman MD Other 06/28/2016 3:36 PM EST - 06/28/2016 8:16 PM EST Emergency [address] [address] Andrei Christiansen MD Chest pain, unspecified type (Primary Dx); Anxiety; Jaundice; Hepatitis Discharge Disposition: Home or Self Care 06/27/2016 9:20 PM EST - 06/27/2016 9:46 PM EST Emergency [facility] [address] [facility] [place] [address] Deyvi Vasquez MD Medication refill (Primary Dx) Discharge Disposition: Home or Self Care 06/22/2016 7:59 PM EST - 06/27/2016 4:28 PM EST Hospital Encounter [facility] [address] [place] [address] Kaleb Lee MD Gaston, Richard L MD Discharge Disposition: Home or Self Care 06/22/2016 2:43 PM EST - 06/22/2016 7:23 PM EST [facility] [address] [place] [address] Grant Kim MD Jaundice (Primary Dx); Elevated liver function tests; Unsteady gait; Generalized weakness; Bradycardia Discharge Disposition: [facility] 03/28/2016 7:12 PM EDT - 03/28/2016 8:51 PM EDT [facility] [address] [place] [address] Deyvi Vasquez MD Cutaneous abscess of right upper extremity (Primary Dx) Discharge Disposition: Home or Self Care 03/25/2016 9:58 AM EDT - 03/25/2016 11:32 AM EDT [address] [place] [address] Majo Joshi DO Abscess (Primary Dx) Discharge Disposition: Home or Self Care 10/10/2015 2:40 PM EDT Office Visit [facility] [address] [place] [address] Jose Lomas MD Perianal excoriation (Primary Dx); Rectal bleeding 09/23/2015 Telephone [facility] Crit [address] [place] [address] Sherie Gomez MD Hemorrhoids 09/22/2015 5:15 PM EDT - 09/22/2015 5:58 PM EDT [address] [place] [address] Mik Burgos MD First degree hemorrhoids (Primary Dx) Discharge Disposition: Home or Self Care 09/22/2015 Telephone [facility] [address] [place] [address] Sherie Gomez MD Pain 07/07/2015 Telephone [facility] Crit [address] [place] [address] Sherie Gomez MD Medication Problem 07/07/2015 2:30 PM EST [facility] Visit [facility] [address] [place] [address] Sherie Gomez MD Atrophic vaginitis (Primary Dx) 06/08/2015 2:00 PM EST - 06/08/2015 11:59 PM EST Hospital Encounter [facility] [address] [place] [address] Yony Hair Sr., MD Breast calcifications Discharge Disposition: Home or Self Care 05/16/2015 Orders Only [facility] [facility] [address] [place] [address] Benjamin Terry MD Epilepsy, focal (HCC) (Primary Dx) 02/22/2015 Abstract [facility] [place] [address] [facility] [address] [place] [address] Johnna Esparza CMA 02/14/2015 5:41 PM EDT - 02/14/2015 7:37 PM EDT [facility] [place] [facility] [address] [place] [address] Chan Hernandez MD Convulsions, unspecified convulsion type (HCC) (Primary Dx); Seizure disorder (HCC) Discharge Disposition: Home or Self Care 02/14/2015 10:57 AM EDT - 02/14/2015 12:07 PM EDT [facility] [address] [facility] [place] [address] Ari Howard MD Closed head injury, initial encounter (Primary Dx) Discharge Disposition: Home or Self Care 02/13/2015 3:27 PM EDT - 02/13/2015 4:48 PM EDT [facility] [address] [facility] [place] [address] Derek Romero MD Head injury, initial encounter (Primary Dx); Fall, initial encounter Discharge Disposition: Left Against Medical Advice 01/22/2015 6:39 PM EDT - 01/22/2015 7:31 PM EDT [address] [place] [address] Vivian Patrick MD Odontalgia (Primary Dx) Discharge Disposition: Home or Self Care 01/20/2015 2:33 PM EDT - 01/20/2015 3:18 PM EDT [facility] [address] [place] [address] Andrei Haro MD Pain, dental (Primary Dx) Discharge Disposition: Home or Self Care 01/04/2015 7:40 PM EDT - 01/04/2015 8:08 PM EDT [facility] [address] [place] [address] Theo Barrientos MD Odontalgia (Primary Dx) Discharge Disposition: Home or Self Care 12/22/2014 10:25 PM EDT - 12/23/2014 12:01 AM EDT [facility] [address] [place] [address] Dank Jerome MD Seizure disorder (HCC) (Primary Dx); Hip injury, right, initial encounter Discharge Disposition: Home or Self Care 12/15/2014 1:49 PM EDT - 12/15/2014 2:54 PM EDT [facility] [address] [place] [address] Deyvi Vasquez MD Ecchymosis (Primary Dx) Discharge Disposition: Home or Self Care 12/10/2014 9:35 AM EDT - 12/10/2014 1:11 PM EDT [facility] [address] [place] [address] Ivis Gomez MD Seizure disorder (HCC) (Primary Dx); Facial contusion, initial encounter Discharge Disposition: Home or Self Care 12/01/2014 7:50 AM EDT - 12/01/2014 11:59 PM EDT Hospital Encounter [facility] [address] [place] [address] Major depressive disorder, single episode, unspecified (HCC) (Primary Dx); Unspecified essential hypertension; Anxiety state, unspecified; Postoperative nausea and vomiting; History of hepatitis A; Suicidal ideation; Elevated TSH; Chest pain; Migraines; Torticollis; Chronic headaches; JAN (generalized anxiety disorder); Epilepsy, focal (HCC); History of traumatic brain injury Discharge Disposition: Home or Self Care 11/16/2014 4:09 PM EDT - 11/16/2014 5:37 PM EDT [facility] [address] [place] [address] Suzanne Cramer MD Scalp contusion, initial encounter (Primary Dx) Discharge Disposition: Home or Self Care 07/01/2014 2:46 PM EST - 07/01/2014 4:33 PM EST [facility] [address] [place] [address] Samanta Tirado III, MD Seizure (HCC) (Primary Dx) Discharge Disposition: Home or Self Care 07/01/2014 2:03 PM EST - 07/01/2014 2:45 PM [place] [address] Yony Luis MD Spondylosis; Left leg numbness Discharge Disposition: Home or Self Care 07/01/2014 2:00 PM EST - 07/01/2014 2:02 PM [place] [address] Yony Luis MD Spondylosis; Left leg numbness Discharge Disposition: Home or Self Care 06/28/2014 Patient Outreach [facility] [address] [place] [id number] Ngoc Murillo RN Care Transition (ED f/u call )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 or Self Care 05/28/2012 1:10 PM EST Office Visit [facility] [address] [place] [address] Kailash Diaz MD Pelvic pain (Primary Dx); Torticollis; Chronic headaches; History of traumatic brain injury 05/23/2012 5:58 PM EST - 05/23/2012 7:18 PM EST Emergency [facility] [address] [place] [address] Mary Enriquez MD Vaginal pain (Primary Dx) Discharge Disposition: Home or Self Care 05/07/2012 10:20 AM EST Office Visit [facility] [address] [place] [address] Kailash Diaz MD Torticollis; Chronic headaches; History of traumatic brain injury 05/05/2012 2:50 PM EST Office Visit [facility] [address] [place] [address] Kailash Diaz MD Torticollis; Chronic headaches; JAN (generalized anxiety disorder); History of traumatic brain injury; Seizure disorder (HCC) 04/02/2012 Refill [facility] [address] [place] [address] Janeen Alegria MD Medication Refill 02/29/2012 Telephone [facility] [address] [place] [address] Janeen Alegria MD Referral 02/26/2012 2:40 PM EDT Office Visit [facility] [address] [place] [address] Janeen Alegria MD Migraine headache (Primary Dx); Torticollis; PTSD (post-traumatic stress disorder) 02/18/2012 2:30 PM EDT - 02/18/2012 11:59 PM EDT Hospital Encounter [facility] [address] [place] [address] Kailash Diaz MD Visit for screening mammogram Discharge Disposition: Home or Self Care 02/11/2012 Telephone [facility] [address] [place] [address] Paula Rivera MA Referral 02/11/2012 3:03 PM EDT - 02/11/2012 3:46 PM EDT Emergency [facility] [address] [place] [address] Mik Burgos MD Migraine headache Discharge Disposition: Home or Self Care 01/30/2012 Telephone [facility] [address] [place] [address] Kailash Diaz MD Cough; Nasal Congestion 01/15/2012 7:47 PM EDT - 01/15/2012 11:59 PM EDT Hospital Encounter EDG LAB EDWIGE PROCESSING [facility] [place] [address] Fluid retention; Edema Discharge Disposition: Home or Self Care 01/15/2012 3:00 PM EDT Office Visit [facility] [address] [place] [address] Kailash Diaz MD Fluid retention (Primary Dx); Visit for screening mammogram; Edema 11/01/2011 Telephone SEP [address] [address] Nancy Wilson, RMA Other 10/24/2011 6:34 PM EDT - 10/24/2011 8:15 PM EDT Emergency [facility] [address] [place] [address] Dave Najera MD Seizure (HCC); Tremor Discharge Disposition: Home or Self Care 10/15/2011 11:42 PM EDT - 10/16/2011 3:59 AM EDT [facility] [address] [place] [address] Majo Harrison, Hand contusion Discharge Disposition: Home or Self Care 08/22/2011 12:35 PM EDT - 08/22/2011 11:59 PM EDT Hospital Encounter [facility] [address] [place] [address] Type II or unspecified type diabetes mellitus without mention of complication, not stated as uncontrolled ([facility]); History of traumatic brain injury Discharge Disposition: Home or Self Care 06/06/2011 3:50 PM EST Office Visit SEP [address] [address] Janeen Alegria MD MRSA (methicillin resistant Staphylococcus aureus) (Primary Dx); Abscess of arm 06/04/2011 7:36 PM EST - 06/04/2011 8:15 PM EST Emergency [facility] [address] [place] [address] Ari Howard MD Abscess of left upper arm and forearm Discharge Disposition: Home or Self Care 05/23/2011 10:10 PM EST - 05/23/2011 10:48 PM EST Emergency [facility] [address] [place] [id number] Gama Oliver MD Chronic neck pain Discharge Disposition: Home or Self Care 03/10/2011 Telephone SEP [facility] [address] [place] [address] Kailash Diaz MD Other 01/24/2011 9:15 PM EDT - 01/24/2011 11:59 PM EDT Hospital Encounter [facility] [address] [place] [address] Other convulsions (HCC); Unspecified hereditary and idiopathic peripheral neuropathy; Encounter for long-term (current) use of other medications; DM w/o complication type II (HCC) Discharge Disposition: Home or Self Care 12/28/2010 Telephone [facility]P [facility] [address] [place] [address] Kailash Diaz MD Referral 12/28/2010 Telephone [facility] [address] [place] [address] Kailash Diaz MD Other 11/22/2010 4:13 PM EDT - 11/22/2010 5:26 PM EDT [facility] [address] [place] [address] Dave Najera MD Hand pain Discharge Disposition: Left Against Medical Advice 10/10/2010 8:38 PM EDT - 10/10/2010 10:10 PM EDT Emergency [facility] [address] [place] [address] Derek Romero MD Migraine; Cervical strain, acute; Torticollis, acute; Headache Discharge Disposition: Home or Self Care 10/03/2010 1:05 PM EDT - 10/03/2010 11:59 PM EDT Hospital Encounter [facility] [address] [place] [address] Other and unspecified hyperlipidemia; Unspecified hypothyroidism; Encounter for long-term (current) use of other medications Discharge Disposition: Home or Self Care 07/11/2010 4:30 PM EST Office Visit [facility] [address] [place] [address] Kailash Diaz MD Sinusitis (Primary Dx) 05/21/2010 3:14 AM EST - 05/21/2010 3:41 AM EST Emergency [facility] [address] [place] [address] Derek Romero MD Migraine headache; Other chronic pain Discharge Disposition: Home or Self Care 05/16/2010 8:20 PM EST - 05/16/2010 8:54 PM EST Emergency [facility] [address] [place] [address] Andrei Haro MD Headache; Chronic pain Discharge Disposition: Home or Self Care 05/13/2010 11:47 PM EST - 05/14/2010 1:09 AM EST Emergency [facility] [address] [place] [address] Andrei Haro MD Headache; Other chronic pain; Shortness of breath; Nausea with vomiting Discharge Disposition: Home or Self Care 05/13/2010 1:10 PM EST - 05/13/2010 2:57 PM EST Emergency [facility] [address] [place] [address] Mary Enriquez MD Headache Discharge Disposition: Home or Self Care 04/28/2010 Telephone [facility]P [facility] [address] [place] [address] Paula Rivera MA Other 04/27/2010 7:32 AM EST - 04/27/2010 10:51 AM EST Emergency [facility] [address] [place] [address] Derek Romero MD Sleep walking disorder; Anxiety Discharge Disposition: Home or Self Care 02/21/2010 1:19 PM EDT - 02/21/2010 2:10 PM EDT Emergency [facility] [address] [facility] [place] [address] Ivis Gomez MD Otitis externa; Perforated tympanic membrane Discharge Disposition: Home or Self Care 02/08/2010 11:49 AM EDT - 02/08/2010 11:59 PM EDT Hospital Encounter EDG LAB EDWIGE PROCESSING [facility] [place] [address] Janeen Alegria MD Encounter for long-term (current) use of other medications Discharge Disposition: Home or Self Care 02/08/2010 11:00 AM EDT Office Visit [facility] [address] [facility] [place] [address] Janeen Alegria MD Otitis externa (Primary Dx); Wrist pain; Edema 02/05/2010 11:30 AM EDT - 02/05/2010 12:56 PM EDT Emergency [facility] [address] [facility] [place] [address] Katt Friedman MD Headache; History of Migraine headache; Nausea with vomiting Discharge Disposition: Home or Self Care 01/18/2010 Telephone [facility] [address] [facility] [place] [address] Janeen Alegria MD Other 01/12/2010 6:24 PM EDT - 01/12/2010 8:04 PM EDT Emergency [facility] Ari Howard MD 01/02/2010 1:06 PM EDT - 01/02/2010 2:26 PM EDT Emergency [facility] Dori Whatley MD 01/01/2010 11:56 AM EDT - 01/01/2010 1:26 PM EDT Emergency [facility] Alma Lin MD 11/27/2009 6:33 PM EDT - 11/27/2009 11:59 PM EDT Emergency [facility] Majo Joshi DO 11/21/2009 4:31 PM EDT - 11/21/2009 5:22 PM EDT Emergency [facility] Majo Joshi DO 11/04/2009 10:20 PM EDT - 11/04/2009 11:59 PM EDT Emergency [facility] Mary Enriquez MD 10/30/2009 3:14 PM EDT - 10/30/2009 4:26 PM EDT Emergency [facility] Theo Barrientos MD 10/27/2009 2:58 AM EDT - 10/27/2009 11:59 PM EDT Emergency [facility] Jaspal Wood MD 07/26/2009 5:13 PM EST - 07/26/2009 11:59 PM EST Hospital Encounter [facility] EPIC CON UNK GRT Nanda Murray MD 06/30/2009 11:15 PM EST - 06/30/2009 11:41 PM EST Emergency [facility] EPIC CON UNK GRT Gokul Purdy MD 06/04/2009 7:45 AM EST - 06/04/2009 8:26 AM EST Emergency [facility] EPIC CON UNK GRT Ivis Gomez MD 05/25/2009 7:11 AM EST - 05/25/2009 8:47 AM EST Emergency [facility] EPIC CON UNK GRT Derek Rmoero MD 03/25/2009 - 03/25/2009 11:59 PM EDT Hospital Encounter [facility] MEDICINE FTT Discharge Disposition: Home or Self Care 01/26/2008 10:50 AM EDT - 01/26/2008 11:59 PM EDT Hospital Encounter HST LAB GRT Arnulfo Queen 11/03/2007 12:01 AM EDT - 11/03/2007 11:59 PM EDT Hospital Encounter HST EMG EDG Chelle Medellin MD 10/23/2007 8:58 AM EDT - 10/23/2007 9:03 AM EDT Hospital Encounter HST OSC Jordin Arias MD 07/26/2007 2:57 PM EST - 07/26/2007 5:27 PM EST Emergency [facility] EMERGENCY [facility]TT Generic, Historical Provider 04/03/2007 1:54 PM EDT - 04/03/2007 11:59 PM EDT Hospital Encounter [facility] RADIOLOGY [facility] Patrick Torres DO 03/31/2007 6:34 PM EDT - 03/31/2007 11:59 PM EDT Hospital Encounter [facility] LAB GRT Patrick Torres, DO 01/24/2007 9:54 AM EDT - 01/24/2007 11:59 PM EDT Hospital Encounter HST GC SPEC SVC GRT Andrei Gaston DPM 01/15/2007 8:45 AM EDT - 01/15/2007 11:59 PM EDT Hospital Encounter [facility]ST RADIOLOGY GRT Kailash Diaz MD 01/01/2007 4:12 PM EDT - 01/01/2007 11:59 PM EDT Hospital Encounter HST LAB EDG Kailash Diaz MD 09/12/2006 4:17 PM EDT - 09/12/2006 8:25 PM EDT Emergency [facility] EMERGENCY FTT Generic, Historical Provider 07/22/2006 8:57 AM EST - 07/22/2006 11:59 PM EST Hospital Encounter [facility] LAB Kailash Elizabeth MD 07/12/2006 4:04 PM EST - 07/12/2006 7:30 PM EST Emergency [facility] EMERGENCY FTT Generic, Historical Provider 07/03/2006 12:13 PM EST - 07/03/2006 1:46 PM EST Emergency [facility] EMERGENCY FTT Generic, Historical Provider 07/02/2006 Hospital Encounter HST MEDICINE FTT Generic, Historical Provider 07/02/2006 Hospital Encounter HST MEDICINE FTT Generic, Historical Provider 05/28/2006 9:20 PM EST - 05/28/2006 11:10 PM EST Emergency [facility]ST EMERGENCY FTT Generic, Historical Provider 04/11/2006 1:41 PM EST - 04/11/2006 11:59 PM EST Hospital Encounter [facility]ST LAB GRT Kailash Diaz MD 04/03/2006 9:02 AM EST - 04/03/2006 11:59 PM EST Hospital Encounter HST RADIOLOGY GRT Patrick Torres DO 03/29/2006 1:26 PM EDT - 03/29/2006 3:40 PM EDT Emergency [facility]ST EPIC CON UNK MARINAT Andrei Ratliff MD 02/25/2006 12:57 PM EDT - 02/25/2006 11:59 PM EDT Hospital Encounter [facility]ST LAB GRT Grant Frances MD 01/28/2006 3:40 PM EDT - 01/28/2006 6:41 PM EDT Emergency [facility]ST EMERGENCY FTT Generic, Historical Provider 01/27/2006 10:26 PM EDT - 01/28/2006 12:35 AM EDT Emergency [facility] EMERGENCY FTT Generic, Historical Provider 01/16/2006 9:31 AM EDT - 01/16/2006 11:59 PM EDT [facility] 12/27/2005 9:42 AM EDT - 12/27/2005 11:59 PM EDT Hospital Encounter HST LAB Grant Crenshaw MD 12/03/2005 9:01 AM EDT - 12/03/2005 11:59 PM EDT Hospital Encounter HST LAB Grant Crenshaw MD 12/01/2005 8:02 PM EDT - 12/01/2005 8:26 PM EDT Emergency [facility]ST EMERGENCY FTT Generic, Historical Provider 09/19/2005 3:49 PM EDT - 09/19/2005 5:45 PM EDT Emergency [facility]ST EPIC CON UNK GRT Eriberto Chatman MD 07/02/2005 12:17 PM EST - 07/02/2005 11:59 PM EST Hospital Encounter [facility]ST LAB GRT Dank Aranda MD 06/20/2005 9:25 AM EST - 06/20/2005 11:59 PM EST Hospital En[facility] 06/14/2005 7:19 PM EST - 06/14/2005 9:55 PM EST Emergency HST EPIC CON UNK GRT Ari Howard MD 04/03/2005 12:01 AM EST - 05/02/2005 11:59 PM EST Hospital Encounter HST PT MARINAT Kailash Diaz MD 03/26/2005 5:58 PM EDT - 04/02/2005 11:59 PM EST Hospital Encounter HST PT MARINAT Kailash Diaz MD 01/29/2005 4:57 PM EDT - 01/29/2005 6:00 PM EDT Emergency [facility]ST EPIC CON UNK GRT Ivis Gomez MD 12/13/2004 11:18 AM EDT - 12/13/2004 12:00 PM EDT Emergency [facility]ST EPIC CON UNK GRT Jaspal Wood MD 11/09/2004 12:30 PM EDT - 11/09/2004 11:59 PM EDT Hospital Encounter [facility] Kailash Rodriguez MD 11/01/2004 4:06 PM EDT - 11/01/2004 11:59 PM EDT Hospital Encounter HST CTR WOM MOB Kailash Rodriguez MD 05/29/2004 12:34 PM EST - 05/29/2004 1:40 PM EST Emergency [facility]ST EPIC CON UNK GRT Eriberto Chatman MD 05/27/2004 6:07 AM EST - 05/27/2004 6:50 AM EST Emergency [facility]ST EPIC CON UNK GRT Derek Romero MD 05/25/2004 3:51 PM EST - 05/25/2004 4:51 PM EST Emergency [facility]ST EPIC CON UNK GRT Rip Vizcaino MD 05/23/2004 8:50 AM EST - 05/23/2004 11:25 AM EST Hospital Encounter HST ESDS FTT Generic, Historical Provider 05/19/2004 3:35 PM EST - 05/19/2004 4:05 PM EST Emergency HST EPIC CON UNK GRT Jaspal Wood MD 05/18/2004 5:10 PM EST - 05/18/2004 6:25 PM EST Emergency [facility]ST EPIC CON UNK GRT Theo Barrientos MD 05/14/2004 6:06 PM EST - 05/14/2004 6:35 PM EST Emergency HST EPIC CON UNK GRT Ugo Villegas MD 05/02/2004 9:14 AM EST - 05/02/2004 10:55 AM EST Hospital Encounter HST ESDS FTT Generic, Historical Provider 04/30/2004 8:27 PM EST - 04/30/2004 9:35 PM EST Emergency HST EPIC CON UNK GRT Derek Romero MD 04/18/2004 8:49 AM EST - 04/18/2004 10:02 AM EST Emergency HST EPIC CON UNK GRT Ugo Villegas MD 01/23/2004 3:58 PM EDT - 01/23/2004 4:40 PM EDT Emergency [facility]ST EPIC CON UNK GRT Dave Najera MD 12/30/2003 6:37 PM EDT - 12/30/2003 7:55 PM EDT Emergency [facility]ST EPIC CON UNK GRT Theo Barrientos MD 12/05/2003 11:36 PM EDT - 12/06/2003 12:30 AM EDT Emergency HST EPIC CON UNK GRT Fabienne Tolentino MD 11/25/2003 2:35 PM EDT - 11/25/2003 11:59 PM EDT Hospital Encounter [facility]ST LAB GRT Kailash Diaz MD 10/16/2003 4:49 PM EDT - 10/16/2003 5:35 PM EDT Emergency HST EPIC CON UNK GRT Andrei Ratliff MD 09/09/2003 8:52 AM EDT - 09/09/2003 11:40 AM EDT Hospital Encounter HST ESDS FTT Generic, Historical Provider 09/04/2003 4:40 PM EST - 09/04/2003 6:18 PM EST Emergency HST EPIC CON UNK GRT Andrei Cortes MD 08/25/2003 8:00 AM EST - 08/25/2003 9:15 AM EST Emergency [facility]ST EMERGENCY FTT Generic, Historical Provider 08/22/2003 8:37 PM EST - 08/22/2003 9:25 PM EST Emergency [facility] EMERGENCY FTT Generic, Historical Provider 08/17/2003 3:44 PM EST - 08/17/2003 5:00 PM EST Emergency HST EPIC CON UNK GRT Majo Harrison DO 08/08/2003 3:25 PM EST - 08/08/2003 5:25 PM EST Emergency [facility] EMERGENCY FTT Generic, Historical Provider 07/24/2003 3:46 PM EST - 07/24/2003 4:30 PM EST Emergency HST EPIC CON UNK GRT Grant Kaba MD 07/15/2003 9:28 AM EST - 07/15/2003 11:35 AM EST Hospital Encounter HST EEND FTT Generic, Historical Provider 06/03/2003 - 07/03/2003 Hospital Encounter HST PHYS MED & AKASH FTT Generic, Historical Provider 04/03/2003 - 06/02/2003 Hospital Encounter HST PHYS MED & AKASH FTT Generic, Historical Provider 05/30/2003 2:09 PM EST - 05/30/2003 3:35 PM EST Emergency HST EPIC CON UNK GRT Andrei Cortes MD 05/19/2003 10:43 AM EST - 05/19/2003 11:30 AM EST Emergency [facility] EMERGENCY FTT Generic, Historical Provider 04/22/2003 7:45 PM EST - 04/22/2003 8:15 PM EST Emergency [facility]ST EMERGENCY FTT Generic, Historical Provider 04/10/2003 1:50 AM EST - 04/10/2003 2:12 AM EST Emergency [facility] EMERGENCY FTT Generic, Historical Provider 04/01/2003 7:45 PM EST - 04/01/2003 10:04 PM EST Emergency [facility]ST EMERGENCY FTT Generic, Historical Provider 03/31/2003 2:16 PM EST - 03/31/2003 7:10 PM EST Emergency [facility]ST EMERGENCY FTT Generic, Historical Provider 03/30/2003 9:00 AM EST - 03/30/2003 10:15 AM EST Hospital Encounter HST ESDS FTT Generic, Historical Provider 03/07/2003 6:48 PM EDT - 03/07/2003 8:10 PM EDT Emergency HST EPIC CON UNK GRT Samanta Tirado III, MD 03/02/2003 3:31 PM EDT - 03/02/2003 11:59 PM EDT Hospital Encounter HST LAB EDG Nanda Murray MD 01/31/2002 12:45 AM EDT - 01/31/2002 12:55 AM EDT Emergency HST EPIC CON UNK GRT Dave Najera MD 01/07/2002 Hospital Encounter HST UNKNFTT Generic, Historical Provider 01/03/2002 9:55 PM EDT - 01/03/2002 11:22 PM EDT Emergency HST UNKNFTT Generic, Historical Provider 08/18/2001 3:52 PM EST - 08/18/2001 5:50 PM EST Emergency HST EPIC CON UNK GRT Eriberto Chatman MD 05/15/2001 Hospital Encounter HST MEDICINE FTT Generic, Historical Provider 05/01/2001 9:57 AM EST - 05/01/2001 11:59 PM EST Hospital Encounter HST EPIC CON UNK EDG Matthew Bernal MD 12/31/2000 6:45 PM EDT - 12/31/2000 7:20 PM EDT Emergency HST EPIC CON UNK GRT Navin Cali MD 05/08/2000 12:07 PM EST - 05/13/2000 10:43 AM EST Hospital Encounter HST [facility] Generic, Historical Provider 04/03/2000 - 05/02/2000 Hospital Encounter HST UNKNFTT Generic, Historical Provider 04/30/2000 Hospital Encounter HST UNKNFTT Generic, Historical Provider 04/24/2000 3:20 PM EST - 04/24/2000 6:25 PM EST Emergency HST [id number] Generic, Historical Provider 01/05/2000 1:00 PM EDT - 01/05/2000 5:45 PM EDT Hospital Encounter [facility]ST ESDS FTT Generic, Historical Provider 11/30/1999 12:13 AM EDT - 11/30/1999 1:00 AM EDT Emergency [facility]ST EPIC CON UNK GRT Ari Howard MD 05/04/1999 5:44 PM EST - 05/04/1999 6:30 PM EST Emergency HST EPIC CON UNK GRT Andrei Cortes MD 03/28/1999 4:39 PM EDT - 03/28/1999 5:30 PM EDT Emergency HST EPIC CON UNK GRT Rip Vizcaino MD 03/27/1999 9:34 PM EDT - 03/28/1999 12:10 AM EDT Emergency HST EPIC CON UNK GRT Derek Romero MD 03/26/1999 8:31 PM EDT - 03/26/1999 9:50 PM EDT Emergency HST EPIC CON UNK GRT Jaspal Wood MD 03/06/1999 7:47 PM EDT - 03/06/1999 9:20 PM EDT Emergency HST EPIC CON UNK GRT Samanta Tirado III, MD 10/24/1997 8:57 AM EDT - 10/24/1997 10:20 AM EDT Emergency [facility]ST EPIC CON UNK COV Navin Cali MD 10/21/1997 8:24 PM EDT - 10/21/1997 9:45 PM EDT Emergency [facility]ST EPIC CON UNK COV Rip Vizcaino MD 09/29/1997 2:55 PM EDT - 09/29/1997 4:00 PM EDT Emergency HST EPIC CON UNK COV Theo Barrientos MD 09/20/1997 2:12 AM EDT - 09/20/1997 3:15 AM EDT Emergency [facility]ST EPIC CON UNK COV Navin Cali MD 08/22/1997 3:21 PM EST - 08/22/1997 4:30 PM EST Emergency HST EPIC CON UNK COV Andrei Ratliff MD 08/21/1997 11:16 PM EST - 08/22/1997 10:30 AM EST Hospital Encounter [facility] TCU Ari Escalona MD Service, 08/05/1997 11:58 PM EST - 08/08/1997 9:30 PM EST Hospital Encounter HST BH2 Kash Keenan MD Service, [facility] 04/25/1997 10:11 PM EST - 04/25/1997 11:59 PM EST Emergency HST EPIC CON UNK COV Samanta Tirado III, MD 03/01/1997 7:42 PM EDT - 03/03/1997 8:18 PM EDT Hospital Encounter HST BH2 Katharine Lawton 12/02/1995 1:54 AM EDT - 12/02/1995 11:59 PM EDT Hospital Encounter [facility]ST EPIC CON UNK COV Generic, Historical Provider 11/21/1995 5:15 PM EDT - 11/21/1995 11:59 PM EDT Emergency HST EPIC CON UNK COV Majo Harrison DO 11/20/1995 12:01 PM EDT - 11/20/1995 11:59 PM EDT Emergency [facility]ST EPIC CON UNK COV Eriberto Chatman MD 11/02/1995 1:22 AM EDT - 11/02/1995 11:59 PM EDT Hospital Encounter [facility]ST EPIC CON UNK COV Generic, Historical Provider 10/02/1995 1:51 AM EDT - 10/02/1995 11:59 PM EDT Hospital Encounter [facility]ST EPIC CON UNK COV Generic, Historical Provider 09/02/1995 5:30 AM EST - 09/02/1995 11:59 PM EST Hospital Encounter [facility]ST EPIC CON UNK COV Generic, Historical Provider 08/02/1995 2:02 AM EST - 08/02/1995 11:59 PM EST Hospital Encounter [facility]ST EPIC CON UNK COV Generic, Historical Provider 07/09/1995 10:24 AM EST - 07/09/1995 11:59 PM EST Hospital Encounter [facility]ST EPIC CON UNK COV Generic, Historical Provider 06/19/1995 2:41 PM EST - 06/19/1995 11:59 PM EST Hospital Encounter [facility]ST EPIC CON UNK COV Generic, Historical Provider 05/15/1995 10:04 AM EST - 05/15/1995 11:59 PM EST Hospital Encounter [facility]ST EPIC CON UNK COV Eriberto Gya MD 03/11/1995 1:13 PM EDT - 03/11/1995 11:59 PM EDT Emergency HST EPIC CON UNK COV Grant Kaba MD 03/05/1995 6:20 PM EDT - 03/05/1995 11:59 PM EDT Emergency HST EPIC CON UNK COV Samanta Tirado III, MD 11/12/1994 10:57 PM EDT - 11/12/1994 11:59 PM EDT Emergency HST EPIC CON UNK COV Samanta Tirado III, MD 01/24/1994 7:39 PM EDT - 01/31/1994 9:32 PM EDT Hospital Encounter HST 2 Dennis Sandy MD 07/01/1993 10:51 AM EST - 07/01/1993 11:59 PM EST Emergency HST EPIC CON UNK COV Shahzad Helton MD 12/19/1990 2:37 PM EDT - 12/20/1990 3:02 PM EDT Hospital Encounter HST [facility] Zach Hawkins 12/17/1990 8:57 AM EDT - 12/17/1990 3:00 PM EDT Hospital Encounter HST [facility] Zach Hawkins 04/18/1989 8:23 AM EST - 04/18/1989 11:59 PM EST Hospital Encounter HST EPIC CON UNK EDG Arnulfo Queen Allergies Active Allergy Reactions Criticality Noted Date Comments Aspirin Itching 02/05/2010 Codeine Hives 02/05/2010 Nsaids (Non-Steroidal Anti-Inflammatory Drug) Nausea Only 03/01/2013 Acetaminophen 05/29/2014 States can't take this because of hep A that I had when I was a kid . Divalproex High 06/27/2016 States this medication caused hepatic failure Medications MULTI-VITAMIN ORAL Take by mouth. Active fish oil-omega-3 fatty acids 340-1,000 mg capsule Take 2 g by mouth daily. Active diphenhydrAMINE (BENADRYL) 25 mg Oral Tablet Take 1 Tab by mouth every 8 hours as needed for Sleep. 12 Tab 7 Active ondansetron (ZOFRAN-ODT) 4 mg Oral Tablet, Rapid DissolveIndications :Migraine without aura and without status migrainosus, not intractable Take 1 Tab by mouth every 8 hours as needed for Nausea. 45 Tab 2 8 Active melatonin 5 mg Oral Tablet Take 1-2 Tabs by mouth nightly as needed. Active mv-min/iron/folic/c alcium/vitK (WOMEN'S MULTIVITAMIN ORAL) Take by mouth daily. Active UNKNOWN TO PATIENT Eye drops for redness relief prn Active LEVOthyroxine (SYNTHROID) 25 mcg Oral TabletIndications:H ypothyroidism (acquired) Take 1 Tab by mouth daily. 90 Tab 1 9 Active propranoloL (INDERAL LA) 80 mg Oral Capsule,Sustained Action 24 hrIndications:Chron ic nonintractable headache, unspecified headache type TAKE 1 CAPSULE EVERY DAY 90 Cap 2 0 Active hydrOXYzine (ATARAX) 10 mg Oral TabletIndications:G AD (generalized anxiety disorder) TAKE 1 TABLET EVERY NIGHT 90 Tab 2 0 Active atorvastatin (LIPITOR) 20 mg Oral TabletIndications:H yperlipidemia, unspecified hyperlipidemia type TAKE 1 TABLET EVERY DAY 90 Tab 1 0 Active estradioL (ESTRACE) 0.5 mg Oral TabletIndications:A trophic vaginitis TAKE 1 TABLET EVERY DAY 90 Tab 0 Active pantoprazole (PROTONIX) 40 mg Oral Tablet, Delayed Release (E.C.)Indications:G astroesophageal reflux disease Take 1 Tablet by mouth daily. 90 Tablet 2 2 Active OXcarbazepine (TRILEPTAL) 300 mg Oral TabletIndications:E pilepsy, focal (HCC) Take 1 Tablet by mouth 2 times daily. 180 Tablet 2 2 Active sertraline (ZOLOFT) 100 mg Oral TabletIndications:G AD (generalized anxiety disorder) Take 2 Tablets by mouth daily. 180 Tablet 2 2 Active tiZANidine (ZANAFLEX) 4 mg Oral TabletIndications:C hronic nonintractable headache, unspecified headache type Take 1 Tablet by mouth 3 times daily. 270 Tablet 2 Active levETIRAcetam (KEPPRA) 500 mg Oral Tablet Take 1 Tablet by mouth 2 times daily. 180 Tablet 2 2 Active sodium,potassium,ma g sulfates 17.5-3.13-1.6 gram Oral Recon Soln Take 6 oz by mouth 2 times daily. 177 mL 3 Active Active Problems Problem Noted Date Diagnosed Date Personal history of colonic polyps 07/18/2022 Overview (07/18/2022): Added automatically from request for surgery [id number] Hyperlipidemia 12/17/2019 Hypothyroidism (acquired) 11/29/2016 Nonintractable epilepsy without status epileptic us 11/29/2016 PTSD (post-traumatic stress disorder) 11/13/2016 Acute hepatitis 06/23/2016 Acute liver failure without hepatic coma 017 Jaundice 06/23/2016 Acute pancreatitis 06/23/2016 Perianal excoriation 10/10/2015 History of hepatitis A 01/11/2014 Overview (01/11/2014): At age 10 Suicidal ideation 11/03/2013 Elevated TSH 07/19/2013 Overview (07/20/2013): FT4 0.9 (mildly low) Suspect subclinical hypothyroid F/u PCP Chest pain 07/19/2013 Overview (07/20/2013): Troponin negative x3. CXR(07/19/13) Negative. Cards consulted Stress test pending Migraines 07/19/2013 Overview (07/19/2013): Head CT (07/18/13) Evidence of prior aneurysm repair. No acute intracranial abnormality. Torticollis 05/05/2012 Chronic headaches 05/05/2012 Overview (07/20/2013): Neuro following Cont home medications JAN (generalized anxiety disorder) 05/05/2012 Epilepsy, focal 05/05/2012 History of traumatic brain injury 12/29/2010 Postoperative nausea and vomiting Auditory hallucination Idiopathic acute pancreatitis without infection or necrosis Colon cancer screening Polyp of colon Diverticulosis Hemorrhoids Immunizations Immunization Administration Dates Next Due Influenza Intradermal 01/31/2013 Influenza Vaccine Quadrivalent 8,07/18/2017,02/28/2017,02/16 Influenza Vaccine Quadrivalent PF 06/23/2016 Influenza Virus Vaccine Quad rivalant, Flublok 05/21/2019 Pneumococcal Conjugate Vacci ne 13 Valent 06/23/2016 Pneumococcal Polysaccharide 23 Valent 12/28/2016 Tdap 06/04/2011 Family History Medical History Relation Name Comments Alzheimer's Disease Father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 all mammography studies are performed usingtomosynthesis. Tomosynthesis [...] next breast imaging, in accordance with the [place] [employer] and the Society of Breast Imaging recommendations. *Breast Imaging has a false negative rate of 15%. *Any patient with a palpable abnormality, unexplained by breast imaging,should be managed on a clinical basis by the attending physician. us Grant Griffith MD IMG MAMMOGRAPHY ORDERABLE S Final Result * MM MAMMO DIGITAL SCREENING W CAD BILAT (12/03/2019 7:55 AM EDT) Only the most recent of6 resultswithin the time period is included. Anatomical Region Laterality Modality Breast Bilateral Mammography 12/03/2019 8:03 AM EDT Impressions 12/03/2019 8:03 AM EDT Negative ([id number]) ~ RECOMMENDATION: Routine screening mammogram in 1 year. ~ DISCLAIMER * Any patient with a palpable abnormality, unexplained by breast imaging, should be managed on clinical basis by the attending physician. * Breast imaging has a false negative rate of 15%. * The patient was notified by mail of the results of this examination. *The patient's information was entered into a reminder system with a target due date for the next mammogram, in accordance with the [place] and the Society of Breast Imaging recommendations. The mammogram was reviewed by a Radiologist and CAD. Narrative 12/03/2019 8:03 AM EDT Procedure:MM MAMMO DIGITAL SCREENING W CAD BILAT ~ Reason for exam: screening, asymptomatic. Z12.31-Encounter for screening mammogram for malignant neoplasm of [id number]-[id number]-CM ~ MM MAMMO DIG SCREEN CAD BILAT Bilateral CC and MLO view(s) were taken. There are scattered fibroglandular densities. Prior study comparison: Compared with prior studies the most recent being 11/24/18, 09/16/17 , 09/06/2016, 06/08/2015. No mammographic evidence of malignancy. No suspicious calcifications. ~ Procedure Note Jose AngelTheo Shannan, - 12/03/2019 Procedure:MM MAMMO DIGITAL SCREENING W CAD BILAT ~ Reason for exam: screening, asymptomatic. Z12.31-Encounter for screening mammogram for malignant neoplasm of [id number]-PAN-27-CM ~ MM MAMMO DIG SCREEN CAD BILAT Bilateral CC and MLO view(s) were taken. There are scattered fibroglandular densities. Prior study comparison: Compared with prior studies the most recentbeing 11/24/18, 09/16/17 , 09/06/2016, 06/08/2015. No mammographic evidence of malignancy. No suspicious calcifications. ~ IMPRESSION: Negative ([id number]) ~ RECOMMENDATION: Routine screening mammogram in 1 year. ~ DISCLAIMER * Any patient with a palpable abnormality, unexplained by breast imaging, should be managed on clinical basis by the attending physician. * Breast imaging has a false negative rate of 15%. * The patient was notified by mail of the results of this examination. *The patient's information was entered into a reminder system with atarget due date for the next mammogram, in accordance with the [place] and the Society of Breast Imaging recommendations. The mammogram was reviewed by a Radiologist and CAD. us Shreyas Azevedo MD IM MAMMOGRAPHY ORDERAB LES Final Result * (ABNORMAL) CBC WITH DIFF (05/22/2019 1:46 PM EST) Only the most recent of24 resultswithin the time period is included. WBC 6.3 3.7 - 10.3 x10(3)/mcL 05/22/2019 7:57 PM EST [facility] RBC 4.68 3.90 - 5.20 x10(6)/mcL 05/22/2019 7:57 PM EST [facility] Hgb 13.9 11.2 - 15.7 g/dL 05/22/2019 7:57 PM EST [facility] Hct 42.1 34.0 - 45.0 % 05/22/2019 7:57 PM EST [facility] MCV 90.0 80.0 - 100.0 fL 05/22/2019 7:57 PM EST [facility] MCH 29.7 26.0 - 34.0 pg 05/22/2019 7:57 PM EST [facility] MCHC 33.0 30.7 - 35.5 g/dL 05/22/2019 7:57 PM EST [facility] RDW 12.2 <=14.9 % 05/22/2019 7:57 PM EST [facility] Platelet 209 155 - 369 x10(3)/mcL 05/22/2019 7:57 PM EST [facility] MPV 11.4 8.8 - 12.5 fL 05/22/2019 7:57 PM EST [facility] Neut Percent 72.5 % 05/22/2019 7:57 PM EST [facility] Comment:Neutrophils equals s egs plus bands Imm Gran% 0.2 % 05/22/2019 7:57 PM EST [facility] Comment:Automated count of m etamyelocytes, myelocytes and promyelocytes. Lymph Percent 17.3 % 05/22/2019 7:57 PM EST [facility] [place] Percent 8.1 % 05/22/2019 7:57 PM EST [facility] Eos Percent 1.6 % 05/22/2019 7:57 PM EST [facility] Baso Percent 0.3 % 05/22/2019 7:57 PM EST [facility] Neut # 4.5 1.6 - 6.1 x10(3)/mcL 05/22/2019 7:57 PM EST [facility] Comment:Neutrophils equals s egs plus bands IMMGRAN# 0.0 0.0 - 0.1 x10(3)/mcL 05/22/2019 7:57 PM EST [facility] Comment:Automated count of m etamyelocytes, myelocytes and promyelocytes. An absolute IG <0.1 is reported as 0.0. Lymph # 1.1(L) 1.2 - 3.9 x10(3)/mcL 05/22/2019 7:57 PM EST [facility] [place] # 0.5 0.3 - 0.9 x10(3)/mcL 05/22/2019 7:57 PM EST [facility] Eos# 0.1 0.0 - 0.5 x10(3)/mcL 05/22/2019 7:57 PM EST [facility] Baso # 0.0 0.0 - 0.1 x10(3)/mcL 05/22/2019 7:57 PM EST [facility] Blood Venipuncture / Unknown 05/22/2019 1:46 PM EST 05/22/2019 1:46 PM EST Shreyas Azevedo MD HEMATOLOGY ORDERABLES F inal Result Performing Organization Address [facility] de Phone Number [facility] [address] [place] [address] , [place] [address] * THYROID STIMULATING HORMONE (05/22/2019 1:46 PM EST) Only the most recent of9 resultswithin the time period is included. TSH 1.020 0.270 - 4.200 mcIU/mL 05/22/2019 8:51 PM EST [facility] Blood Venipuncture / Unknown 05/22/2019 1:46 PM EST 05/22/2019 1:46 PM EST Narrative [facility] - 05/22/2019 8:51 PM EST Ingestion of marcus doses of biotin (>5 mg/day) taken within 8 hours of drawing blood sample can interfere with this immunoassay test. Shreyas Azevedo MD CHEMISTRY ORDERABLES Fi nal Result Performing Organization Address [facility] Phone Number [employer] [address] [place] [address] , [place] [address] * T4, FREE (THYROXINE) (05/22/2019 1:46 PM EST) Only the most recent of5 resultswithin the time period is included. Free T4 1.14 0.80 - 2.00 ng/dL 05/22/2019 8:14 PM EST [facility] Blood UPPER LIMB STRUCTURE / Unknown Venipuncture / Unknown 05/22/2019 1:46 PM EST 05/22/2019 1:46 PM EST Narrative [facility] - 05/22/2019 8:14 PM EST Ingestion of marcus doses of biotin (>5 mg/day) taken within 8 hours of drawing blood sample can interfere with this immunoassay test. Shreyas Azevedo MD CHEMISTRY ORDERABLES Fi nal Result Performing Organization Address [facility] Co de Phone Number [employer] [address] [facility] , [place] [address] * (ABNORMAL) LIPID SCREEN (05/22/2019 1:46 PM EST) Only the most recent of7 resultswithin the time period is included. Cholesterol 230(H) <=200 mg/dL 05/22/2019 8:51 PM EST [facility] Comment: < 200 Desirable 200 - 239 Borderline High >= 240 High Triglyceride 152(H) <=150 mg/dL 05/22/2019 8:51 PM EST [facility] Comment: < 150 Normal 150 - 199 Borderline High 200 - 499 High >= 500 Very High HDL 73 >=40 mg/dL 05/22/2019 8:51 PM EST [facility] Comment: > 60 Optimal 40 - 60 Acceptable < 40 Low LDL Calculated 127(H) <=100 mg/dL 05/22/2019 8:51 PM EST [facility] Comment: < 100 Optimal 100 - 129 Near or above optimal 130 - 159 Borderline High 160 - 189 High >= 190 Very High Non-HDL-C Calculated 157(H) <=129 mg/dL 05/22/2019 8:51 PM EST [facility] Comment: <130 Desirable 130-159 Above Desirable 160-189 Borderline High 190-219 High >= 220 Very High Fasting Specimen? 019 8:51 PM EST [facility] Blood Venipuncture / Unknown 05/22/2019 1:46 PM EST 05/22/2019 1:46 PM EST Shreyas Azevedo MD CHEMISTRY ORDERABLES Fi nal Result Performing Organization Address [facility] Co de Phone Number [employer] [address] [facility] , [place] [address] * (ABNORMAL) COMPREHENSIVE METABOLIC PANEL (05/22/2019 1:46 PM EST) Only the most recent of21 resultswithin the time period is included. Sodium 133(L) 136 - 145 mmol/L 05/22/2019 8:51 PM EST [facility] Potassium 4.1 3.5 - 5.0 mmol/L 05/22/2019 8:51 PM EST [facility] Chloride 93(L) 98 - 107 mmol/L 05/22/2019 8:51 PM EST [facility] Total CO2 27 22 - 29 mmol/L 05/22/2019 8:51 PM EST [facility] Anion Gap 13 7 - 16 mmol/L 05/22/2019 8:51 PM EST [facility] Calcium 9.5 8.6 - 10.4 mg/dL 05/22/2019 8:51 PM EST [facility] Glucose Lvl 106(H) 74 - 100 mg/dL 05/22/2019 8:51 PM EST [facility] BUN 10 6 - 20 mg/dL 05/22/2019 8:51 PM EST [facility] Creatinine 0.65 0.51 - 1.30 mg/dL 05/22/2019 8:51 PM EST [facility] Albumin 4.3 3.5 - 5.2 gm/dL 05/22/2019 8:51 PM EST [facility] Total Protein 7.5 6.4 - 8.3 gm/dL 05/22/2019 8:51 PM EST [facility] Bili Total 0.2 0.1 - 1.3 mg/dL 05/22/2019 8:51 PM EST [facility] ALT 14 <=41 IU/L 05/22/2019 8:51 PM EST [facility] AST 26 <=40 IU/L 05/22/2019 8:51 PM EST [facility] Alk Phos 112 36 - 123 IU/L 05/22/2019 8:51 PM EST [facility] GFR Afr Am 118 >=60 mL/min/1.7 3 m2 05/22/2019 8:51 PM EST [facility] GFR Non Afr Am 102 >=60 mL/min/1.7 3 m2 05/22/2019 8:51 PM EST [facility] Comment: This estimated GFR was calculated using CKD-EPI equation which is modified based on ethnicity for Non Americans and Americans. Both results are reported since it is not always possible to determine the patient's ethnicity. This equation should only be used for individuals 18 and older. It has not been validated for use with the elderly (>70 years), women, or in some racial or ethnic subgroups, such as Hispanics. The equation will be less accurate in people with differences in nutritional status or muscle mass. Blood Venipuncture / Unknown 05/22/2019 1:46 PM EST 05/22/2019 1:46 PM EST us Shreyas Azevedo MD CHEMISTRY ORDERABLES Fi nal Result [facility] [address] [facility], [place] [address] [facility] [address] [place] [address] * EEG AWAKE AND DROWSY (02/11/2019 9:59 AM EDT) Anatomical Region Laterality Modality Electroencephalo graphy Narrative 02/11/2019 10:27 AM EDT REFERRING MD: Dr. Azevedo REASON FOR EEG: Pt. is a 54 year old WF with diagnosis for EEG of special sensory attacks, shakes, neuralgia, cerebral aneurysm and neck rigid. Pt. states that she is unsure why this test is being done. Additional diagnoses on problem list includes: hypothyroidism, generalized anxiety disorder, auditory hallucination, PTSD, epilepsy - focal, nonintractable epilepsy without status epilepticus and chronic headaches. CURRENT MEDICATIONS: Lipitor, Benadryl, Estrace, Fish oil, Atarax, Synthroid, Melatonin, Zofran, Trileptal, Protonix, Inderal [place], Zoloft, Zanaflex TECHNICAL SUMMARY: This is a 20 channel referential and bipolar EEG recorded in a digital format in a patient who is reported to be awake during the recording. While awake and maximally stimulated the background rhythm consisted of a well developed, well regulated moderate voltage activity in the 8-9 Hz frequency range, maximum over the posterior head regions and reactive to eye opening and closure. During the recording the patient becomes drowsy, however stage II sleep was not seen. Photic stimulation was performed and elicited no abnormalities. Hyperventilation was performed and elicited symmetric slowing. No cardiac rhythm abnormalities were seen in the EKG monitoring channel. EEG INTERPRETATION: This EEG is within normal limits for a patient of this age in the awake and drowsy conditions. No focal, lateralizing, or epileptiform features were seen. Reading MD Benjamin Terry MD us Not In [facility] Provider IMG EEG ORDERABLES Final Re sult * PATHOLOGY TISSUE REQUEST (12/09/2018 8:38 AM EDT) CASE REPORT Surgical Pathology Case: [id number] Authorizing Provider: Grayson Christine, Collected: 12/09/2018 0838 Ordering Location: [facility] Received: 12/09/2018 1420 Pathologist: David Candelaria MD Specimens: A) - Large Intestine, Left/Descendin g Colon, descending colon polyp-cold snare B) - Large Intestine, Sigmoid Colon, sigmoid colon polyp X2 - cold snare 12/10/2018 10:06 AM EDT [facility] FINAL DIAGNOSIS A) Descending colon polyp, polypectomy: - Sessile serrated adenoma, negative for high-grade dysplasia. B) Sigmoid colon polyps x2, polypectomies: - Tubular adenoma, negative for high-grade dysplasia. - Sessile serrated adenoma, negative for high-grade dysplasia. 12/10/2018 10:06 AM T [facility] at 1006 EDT GROSS DESCRIPTION Part A) Received in formalin in a container labeled with the patient s name, hospital number and d escending colon polyp cold snare is a 0.6 x 0.3 x 0.2 cm ward-jeffers strip of mucosa. Entirely submitted in A1. /EF Part B) Received in formalin in a container labeled with the patient s name, hospital number and s igmoid colon polyp x2 cold snare are two pink-jeffers strips of mucosa, 0.6 and 0.7 cm in greatest dimension. Entirely submitted in B1. /EF 12/10/2018 10:06 AM EDT [facility] MICROSCOPIC DESCRIPTION Microscopic examination is performed and the findings corroborate the diagnosis. 12/10/2018 10:06 AM EDT [facility] EMBEDDED IMAGES 12/10/2018 10:06 AM EDT [facility] Tissue DESCENDING COLON STRUCTURE / Unknown 12/09/2018 8:38 AM EDT 12/09/2018 2:20 PM EDT Tissue specimen (specimen) SIGMOID COLON STRUCTURE / Unknown 12/09/2018 8:41 AM EDT 12/09/2018 2:20 PM EDT us Grayson Christine MD PATHOLOGY ORDERABLES Final Result Performing Organization Address [facility]/ZIP Co de Phone Number [facility] [address] [place], [place] [id number] [address] [id number] * GMED COLONOSCOPY (12/09/2018 8:30 AM EDT) 12/09/2018 8:30 AM EDT Impressions [facility] - 12/09/2018 8:47 AM EDT Diverticulosis of the ascending colon and hepatic flexure. Polyp (6 mm) in the descending colon. (Polypectomy). Polyps (4 mm to 5 mm) in the sigmoid colon. (Polypectomy). Internal and external hemorrhoids. Otherwise normal colonoscopy. Plan: Await pathology results Colonoscopy in 3 or 5 years depending on pathology results. High Fiber Diet. Soluble fiber is recommended for diarrhea and insoluble fiber is recommended for constipation. Patient to follow-up with Primary Care Physician and/or Referring Physician This section is an excerpt of the full report. us Grayson Christine MD GI PROCEDURE ORDERAB LES Final Result Performing Organization Address [facility]/ZIP Co de Phone Number [facility] [address] [place], [place] [id number] * INTRAOP AIRWAY PLACEMENT (12/09/2018 8:29 AM EDT) Narrative [facility] - 12/09/2018 8:29 AM EDT Faith Hawley CRNA 12/09/2018 8:29 AM Intraop Airway Placement: Date/Time: 12/09/2018 8:18 AM Induction type: IV Airway type: Nasal cannula salter Procedure Note Faith Hawley, ARTS THERAPIST - 12/09/2018 8:29 AM EDT Intraop Airway Placement: Date/Time: 12/09/2018 8:18 AM Induction type: IV Airway type: Nasal cannula salter us Todd Sr MD [place] ANESTHESIA Final Resu lt [facility] [address] [place] [id number] * KEPPRA (LEVETIRACETAM) LEVEL -REF LAB (11/06/2018 12:20 PM EDT) Only the most recent of3 resultswithin the time period is included. Keppra 18 12 - 46 ug/mL 11/08/2018 2:56 AM EDT [employer] Comment: INTERPRETIVE INFORMATION: Keppra (Levetiracetam) Therapeutic Range: 12-46 ug/mL Toxic: Not well Established Pharmacokinetics of levetiracetam are affected by renal function. Adverse effects may include somnolence, weakness, headache and vomiting. This levetiracetam (Keppra) immunoassay uses the [employer] reagents, which has known cross-reactivity with the drug brivaracetam (Briviact) and may report inaccurate results. Patients transitioning from levetiracetam to brivaracetam or those who are using both medications should not monitor drug concentrations with the [employer] assay. These patients should be monitored using a validated chromatographic methodology that distinguishes between drugs to determine drug concentrations. Performed by [facility], [address] [place] [id number] [email or web address], Adrián Cardenas MD, Lab. Director Blood VENOUS BLOOD / Unknown Venipuncture / Unknown 11/06/2018 12:20 PM EDT 11/06/2018 12:30 PM EDT us Shreyas Azevedo MD CHEMISTRY ORDERABLES Fi nal Result Performing Organization Address City/[facility]/ZIP Co de Phone Number [facility] [address] [place] [address] * XR HIP RIGHT AP LATERAL W AP PELVIS (10/11/2018 10:00 AM EDT) Only the most recent of4 resultswithin the time period is included. Anatomical Region Laterality Modality Hip Radiographic Lindsey ging 10/11/2018 10:0 0 AM EDT Impressions 10/11/2018 10:06 AM EDT No acute abnormality of the hip or pelvis. - - Narrative 10/11/2018 10:06 AM EDT XR HIP RIGHT AP LATERAL W AP PELVIS, 10/11/2018 10:00 AM CLINICAL HISTORY: Fall with right hip pain. COMPARISON: 11/30/2017 PROCEDURE COMMENTS: AP view of the pelvis with AP and frog-leg views of the hip. FINDINGS: Bony structure of the pelvis and hips intact. No fracture or dislocation. Joint spaces are maintained. Procedure Note Tee Mcclure MD - 10/11/2018 XR HIP RIGHT AP LATERAL W AP PELVIS, 10/11/2018 10:00 AM CLINICAL HISTORY: Fall with right hip pain. COMPARISON: 11/30/2017 PROCEDURE COMMENTS: AP view of the pelvis with AP and frog-leg views ofthe hip. FINDINGS: Bony structure of the pelvis and hips intact. No fracture ordislocation. Joint spaces are maintained. IMPRESSION: No acute abnormality of the hip or pelvis. - - Yoshi Doyle MD IMG DIAGNOSTIC IMAGING [employer] [facility] Final Result * TSH REFLEX (03/06/2018 4:37 PM EDT) Only the most recent of2 resultswithin the time period is included. TSH Reflex 0.948 0.270 - 4.200 mcIU/mL 03/06/2018 7:48 PM EDT PREFERRED [facility] Blood Venipuncture / Unknown 03/06/2018 4:37 PM EDT 03/06/2018 4:37 PM EDT Narrative PREFERRED [facility] - 03/06/2018 7:48 PM EDT Ingestion of marcus doses of biotin (>5 mg/day) taken within 8 hours of drawing blood sample can interfere with this immunoassay test. Shreyas Azevedo MD CHEMISTRY ORDERABLES Fi nal Result Performing Organization Address City/[facility]/ZIP Co de Phone Number [facility] [address] [facility], [place] [address] * FECAL HEME SCREEN (07/19/2017 2:04 PM EST) Fecal Heme Scrn Negative Negative 07/20/2017 7:51 AM EST [facility] Stool 07/19/2017 2:04 PM EST 07/19/2017 2:04 PM EST Shreyas Azevedo MD IMMUNOLOGY ORDERABLES F inal Result Performing Organization Address [facility] [place] [address] * CT SINUS LAND MAJO WO CONTRAST (03/29/2017 1:38 PM EDT) Anatomical Region Laterality Modality Head Computed Tomogra phy 03/29/2017 1:38 PM EDT Impressions 03/29/2017 4:11 PM EDT Prior sinonasal surgery with mild maxillary and left ethmoid sinus mucosal changes as detailed above. Narrative 03/29/2017 4:[address] SINUS LAND MAJO WO CONTRAST, 03/29/2017 1:38 PM HISTORY: J32.9-Chronic sinusitis, [id number]-93-CM R43.9-Unspecified disturbances of smell and uroah-SXV-06-CM IMAGING PARAMETERS: 1 mm contiguous axial images were obtained through the paranasal sinuses without contrast and coronal reconstructions performed utilizing [place] protocol. Automated exposure modulation for dose reduction. DISCUSSION: Comparison with head CT from 07/15/2016. No comparison dedicated paranasal sinus CT available. There has been prior sinonasal surgery including bilateral nasal antral windows and resection of the left middle turbinate. These surgical drainage pathways are patent. There is mild mucosal thickening and a small mucous retention cyst at the base of the right maxillary sinus. There is minimal focal mucosal thickening anteriorly in the left maxilla sinus with a thin strand of thickening or mucous extending from this site to the surgical drainage pathway medially. There is mild focal left ethmoid sinus mucosal thickening inferiorly. The frontal sinuses are hypoplastic but clear. The sphenoid and right ethmoid sinuses are clear. There is no fluid level or bone destruction. Nasal septum midline. No nasal fossa mass. Tympanomastoid cavities clear. Orbits appear normal. Prior left frontotemporal craniotomy with aneurysm clip adjacent to the left anterior clinoid process redemonstrated. Atherosclerotic calcification regional to the common carotid artery bifurcations is minimal to mild and greater on the right. Procedure Note Dustin Leos MD - 03/29/2017 CT SINUS LAND MAJO WO CONTRAST, 03/29/2017 1:38 PM HISTORY: J32.9-Chronic sinusitis, [id number]-EZJ-94-CM R43.9-Unspecified disturbances of smell and kcjuz-JOV-09-CM IMAGING PARAMETERS: 1 mm contiguous axial images were obtained throughthe paranasal sinuses without contrast and coronal reconstructions performed utilizing [place] protocol. Automated exposure modulation for dosereduction. DISCUSSION: Comparison with head CT from 07/15/2016. No comparisondedicated paranasal sinus CT available. There has been prior sinonasal surgeryincluding bilateral nasal antral windows and resection of the left middle turbinate.These surgical drainage pathways are patent. There is mild mucosal thickeningand a small mucous retention cyst at the base of the right maxillary sinus.There is minimal focal mucosal thickening anteriorly in the left maxilla sinus witha thin strand of thickening or mucous extending from this site to thesurgical drainage pathway medially. There is mild focal left ethmoid sinusmucosal thickening inferiorly. The frontal sinuses are hypoplastic but clear.The sphenoid and right ethmoid sinuses are clear. There is no fluid level orbone destruction. Nasal septum midline. No nasal fossa mass. Tympanomastoidcavities clear. Orbits appear normal. Prior left frontotemporal craniotomy withaneurysm clip adjacent to the left anterior clinoid process redemonstrated. Atherosclerotic calcification regional to the common carotid arterybifurcations is minimal to mild and greater on the right. IMPRESSION: Prior sinonasal surgery with mild maxillary and left ethmoid sinus mucosal changes as detailed above. us Larry Goodman MD IMG CT ORDERABLES Final Result * HBV DNA QUANT PCR -REF LAB (02/28/2017 9:08 AM EDT) Only the most recent of3 resultswithin the time period is included. Pathologist [facility] HBV DNA Quant PCR <1.3 log IU [facility] Comment: INTERPRETIVE INFORMATION: Hepatitis B Virus by Quantitative PCR The quantitative range of this assay is 1.3-8.2 log IU/mL (20-170,000,000 IU/mL). 1 IU/mL of HBV DNA is approximately 5.82 copies/mL. This assay should not be used for blood donor screening, associated re-entry protocols, or for screening Human Cell, Tissues and Cellular Tissue-Based Products (HCT/P). HBV DNA Quant PCR Interpretation Not Detected Not Detected [facility] Comment: Performed by [facility], [address] [place] [id number] [email or web address], Adrián Cardenas MD - Lab. Director HBV IU <20 IU/mL [facility] Blood specimen (specimen) UPPER LIMB STRUCTURE / Unknown 02/28/2017 9:08 AM EDT 02/28/2017 2:46 PM EDT Omega Lamb MD IMMUNOLOGY ORDERABLES Final Result [facility] [address] [place], [place] [id number] * (ABNORMAL) HB-1 CUSTOM UDS PANEL-QUEST (12/28/2016 6:06 PM EDT) Pathologist [facility] Prescribed Drug 1 Gabapentin Q [facility] 6-Acetylmorphine,GC/MS NEGATIVE <10 ng/mL [facility] medMATCH 6 Acetylmorphine CONSISTENT [facility] Comments [facility] Comment: This drug testing is for medical treatment only. Analysis was performed as non-forensic testing and these results should be used only by healthcare providers to render diagnosis or treatment, or to monitor progress of medical conditions. medMATCH comments are: - present when drug test results may be the result of metabolism of one or more drugs or when results are inconsistent with prescribed medication(s) listed. - may be blank when drug results are consistent with prescribed medication(s) listed. For assistance with interpreting these drug results, please contact a [facility] Toxicology Specialist: [phone] ( ), M-F, 8am-6pm EST. Prescribed Drug 1 Gabapentin Q [facility] Ritalinic Acid NEGATIVE <100 ng/mL [facility] medMATCH Ritalinic Acid CONSISTENT [facility] medMatch Comments [facility] Comment: This drug testing is for medical treatment only. Analysis was performed as non-forensic testing and these results should be used only by healthcare providers to render diagnosis or treatment, or to monitor progress of medical conditions. [employer]MATCH comments are: - present when drug test results may be the result of metabolism of one or more drugs or when results are inconsistent with prescribed medication(s) listed. - may be blank when drug results are consistent with prescribed medication(s) listed. For assistance with interpreting these drug results, please contact a [facility] Toxicology Specialist: [phone] ( ), M-F, 8am-6pm EST. Prescribed Drug 1 Gabapentin Q [facility] Creatinine, Urine 109.9 > or = 20.0 mg/dL [facility] UA pH 6.49 4.5 - 9.0 [facility] Oxidant NEGATIVE <200 mcg/mL [facility] Amphetamines NEGATIVE <500 ng/mL [facility]MATCH Amphetamines CONSISTENT [facility] Barbiturates NEGATIVE <300 ng/mL [facility] medMATCH Barbiturates CONSISTENT [facility] Benzodiazepines NEGATIVE CONFIRMED <100 ng/mL [facility] ALPHAHYDROXYALPRAZOLAM NEGATIVE <25 ng/mL [facility] medMATCH aOH alprazolam CONSISTENT [facility] ALPHAHYDROXYMIDAZOLAM NEGATIVE <50 ng/mL [facility] MEDMATCH AOH MIDAZOLAM CONSISTENT [facility] ALPHAHYDROXYTRIAZOLAM-QU EST NEGATIVE <50 ng/mL [facility] medMATCH aOH triazolam CONSISTENT [facility] Aminoclonazepam NEGATIVE <25 ng/mL [facility]MATCH Aminoclonazepam CONSISTENT [facility] Hydroxyethylflurazepam NEGATIVE <50 ng/mL [facility] MEDMATCH OH ET FLURAZEPAM CONSISTENT [facility] LORAZEPAM-QUEST NEGATIVE <50 ng/mL [facility] medMATCH Lorazepam CONSISTENT [facility] NORDIAZEPAM-QUEST NEGATIVE <50 ng/mL [facility] medMATCH Nordiazepam CONSISTENT [facility] OXAZEPAM-QUEST NEGATIVE <50 ng/mL [facility] medMATCH Oxazepam CONSISTENT Q [facility] TEMAZEPAM-QUEST NEGATIVE <50 ng/mL [facility] medMATCH Temazepam CONSISTENT [facility] Marijuana Metabolite POSITIVE(A) <20 ng/mL [facility] MARIJUANA METABOLITE-QUEST 229(H) <5 ng/mL [facility] medMATCH Marijuana Metab INCONSISTENT [facility] Cocaine Metabolite NEGATIVE <150 ng/mL [facility] medMATCH Cocaine Metab CONSISTENT [facility] Methadone NEGATIVE <100 ng/mL [facility] medMATCH Methadone CONSISTENT [facility] Opiates NEGATIVE <100 ng/mL [facility] medMATCH Opiates CONSISTENT [facility] Oxycodone NEGATIVE <100 ng/mL [facility] medMATCH Oxycodone CONSISTENT [facility] medMatch Comments [facility] Comment: This drug testing is for medical treatment only. Analysis was performed as non-forensic testing and these results should be used only by healthcare providers to render diagnosis or treatment, or to monitor progress of medical conditions. medMATCH comments are: - present when drug test results may be the result of metabolism of one or more drugs or when results are inconsistent with prescribed medication(s) listed. - may be blank when drug results are consistent with prescribed medication(s) listed. For assistance with interpreting these drug results, please contact a [facility] Toxicology Specialist: [phone] ( ), M-F, 8am-6pm EST. 12/28/2016 6:06 PM EDT 12/28/2016 8:47 PM EDT Narrative Resulting Agency Comment Performing Organization Information: Site ID: Name: [facility] Address: [address] [place] [id number] Director: Venkat Hills M.D. Site ID: KP Name: [facility] Address: [address] [place], [place] [address] [place] [address] Director: Lucia Fairbanks [facility] Ph.D. Melissa Funes MD [facility] ORDERABLE (NON-SE) Final Result [employer] [id number] [phone] [facility]ationsLINCOL[facility] CENTEREVELYN [address] [facility] [place] [address] * CBC (12/28/2016 8:01 AM EDT) Only the most recent of11 resultswithin the time period is included. WBC 5.4 4.0 - 11.0 x10(3)/mcL [facility] RBC 4.35 3.80 - 5.10 x10(6)/mcL [facility] Hgb 13.2 12.0 - 15.6 gm/dL [facility] Hct 39.5 35.7 - 45.9 % [facility] MCV 90.8 82.5 - 99.8 fL [facility] MCH 30.4 27.0 - 34.3 pg [facility] MCHC 33.5 32.1 - 35.3 gm/dL [facility] RDW 13.1 11.5 - 15.0 % [facility] Platelet 157 144 - 423 x10(3)/mcL [facility] MPV 9.4 6.8 - 10.8 fL [facility] Blood specimen (specimen) UPPER LIMB STRUCTURE / Unknown 12/28/2016 8:01 AM EDT 12/28/2016 8:01 AM EDT Shreyas Azevedo MD HEMATOLOGY ORDERABLES F inal Result Performing Organization Address [facility] Co de Phone Number [facility] [address] [place] [address] * HEPATIC FUNCTION PANEL (12/28/2016 8:01 AM EDT) Only the most recent of13 resultswithin the time period is included. Pathologist [facility] Total Protein 7.5 6.4 - 8.3 gm/dL [facility] Albumin 4.4 3.5 - 5.2 gm/dL [facility] Bili Direct <0.2 0.0 - 0.3 mg/dL [facility] Bili Total 0.2 0.1 - 1.3 mg/dL [facility] AST 21 <=40 IU/L [facility] ALT 14 <=41 IU/L [facility] Alk Phos 103 35 - 104 IU/L [facility] Blood specimen (specimen) UPPER LIMB STRUCTURE / Unknown 12/28/2016 8:01 AM EDT 12/28/2016 8:01 AM EDT Omega Lamb MD CHEMISTRY ORDERABLES Final Result Performing Organization Address [facility] Co de Phone Number [facility] [address] [place], [place] [phone] * XR WRIST RIGHT PA LATERAL AND OBLIQUE (07/24/2016 2:34 PM EST) Anatomical Region Laterality Modality Wrist Radiographic Lindsey ging 07/24/2016 2:34 PM EST Impressions 07/24/2016 3:22 PM EST No significant osseous, joint or soft tissue abnormality is seen. Narrative 07/24/2016 3:22 PM EST XR WRIST RIGHT PA LATERAL AND OBLIQUE 07/24/2016 2:34 PM HISTORY: -ARM INJURY COMPARISON: 10/16/2011. Procedure Note Andrei Sparks MD - 07/24/2016 XR WRIST RIGHT PA LATERAL AND OBLIQUE 07/24/2016 2:34 PM HISTORY: -ARM INJURY COMPARISON: 10/16/2011. IMPRESSION: No significant osseous, joint or soft tissue abnormality is seen. Jeremi Langford MD [facility] DIAGNOSTIC IMAGING OR DERABLES Final Result * XR KNEE LEFT AP LAT INT EXT OBLIQUES AND SUNRISE (07/24/2016 2:33 PM EST) Anatomical Region Laterality Modality Knee Radiographic Lindsey ging 07/24/2016 2:33 PM EST Impressions 07/24/2016 3:01 PM EST No fracture or malalignment. Narrative 07/24/2016 3:01 PM EST XR KNEE LEFT AP LAT INT EXT OBLIQUES AND SUNRISE 07/24/2016 2:33 PM CLINICAL: -ARM INJURY Comparison: None FINDINGS: There is no fracture or malalignment of the left knee. There is no definite joint effusion. No high-grade degenerative changes. Procedure Note Steven Witt III, MD - 07/24/2016 XR KNEE LEFT AP LAT INT EXT OBLIQUES AND SUNRISE 07/24/2016 2:33 PM CLINICAL: -ARM INJURY Comparison: None FINDINGS: There is no fracture or malalignment of the left knee. There isno definite joint effusion. No high-grade degenerative changes. IMPRESSION: No fracture or malalignment. Jeremi Langford MD [facility] DIAGNOSTIC IMAGING OR DERABLES Final Result * DIFFERENTIAL (07/18/2016 5:09 PM EST) Only the most recent of21 resultswithin the time period is included. Neut Percent 40.2 % [facility] GRA NT LAB[facility]ATORY Lymph Percent 48.2 % SE GR ANT LABORATORY [place] Percent 8.2 % [facility] Eos Percent 2.5 % [facility] Baso Percent 0.9 % [facility] GRA NT LABORATORY Neut# 2.1 1.8 - 7.7 x10(3)/[facility] Lymph# 2.6 0.6 - 4.8 x10(3)/[facility] [place]# 0.4 0.0 - 1.3 x10(3)/[facility] Eos# 0.1 0.0 - 0.5 x10(3)/[facility] Baso# 0.0 0.0 - 0.2 x10(3)/[facility] Blood specimen (specimen) 07/18/2016 5:09 PM EST 07/18/2016 5:09 PM EST Alma Lin MD HEMATOLOGY ORDERABLES Final Result Performing Organization Address [facility] Co de Phone Number [facility] [address] [place] [address] * PT / INR (07/18/2016 5:09 PM EST) Only the most recent of10 resultswithin the time period is included. PT 11.0 9.3 - 12.3 second(s) [facility] INR 0.98 0.87 - 1.15 [facility] Comment: Level of Therapy Indications Target INR Range Standard Dose Treatment and prophylaxis of venous 2.0 - 3.0 thrombosis, pulmonary embolism High Dose High risk patients with mechanical 2.5 - 3.5 heart valves Blood specimen (specimen) UPPER LIMB STRUCTURE / Unknown 07/18/2016 5:09 PM EST 07/18/2016 5:09 PM EST us Alma Lin MD HEMATOLOGY ORDERABLES Final Result Performing Organization Address [facility] Co de Phone Number [facility] [address] [place] [address] * D-DIMER (07/18/2016 5:09 PM EST) Only the most recent of3 resultswithin the time period is included. D-Dimer <230 <=230 ng/mL D-DU [facility] Comment: This test has been clinically validated by the printing supplies sales representative and approved by the FDA for exclusion of pulmonary embolism (PE) or deep vein thrombosis (DVT) in patients with a low clinical risk assessment. The cutoff for exclusion of PE and DVT is < 230 ng/mL D-Dimer Units. Increased levels of D-dimer are associated with PE, DVT, disseminated intravascular coagulation, malignancies, inflammation, sepsis, surgery, trauma, , and advanced patient age. [DEBORAH 2006 11:295(2): 199-207] Blood specimen (specimen) UPPER LIMB STRUCTURE / Unknown 07/18/2016 5:09 PM EST 07/18/2016 5:09 PM EST Alma Lin MD HEMATOLOGY ORDERABLES Final Result Performing Organization Address [facility] Co de Phone Number [facility] [address] [place] [address] * BASIC METABOLIC PANEL (07/18/2016 5:09 PM EST) Only the most recent of14 resultswithin the time period is included. Sodium 141 136 - 145 mmol/L [facility] Potassium 3.9 3.5 - 5.0 mmol/L [facility] Chloride 102 98 - 107 mmol/L [facility] Total CO2 28 22 - 29 mmol/L [facility] Anion Gap 11 7 - 16 mmol/L [facility] Calcium 10.2 8.6 - 10.2 mg/dL [facility] Glucose Lvl 75 74 - 100 mg/dL [facility] BUN 10 6 - 20 mg/dL [facility] Creatinine 0.65 0.51 - 1.30 mg/dL [facility] GFR Afr Am >60 [facility] GFR Non Afr Am >60 [facility] Blood specimen (specimen) UPPER LIMB STRUCTURE / Unknown 07/18/2016 5:09 PM EST 07/18/2016 5:09 PM EST Alma Lin MD CHEMISTRY ORDERABLES Edited Result - Final Performing Organization Address [facility] Co de Phone Number [facility] [address] [place] [address] * XR CHEST PA AND LATERAL (07/18/2016 5:01 PM EST) Only the most recent of5 resultswithin the time period is included. Anatomical Region Laterality Modality Chest Radiographic Lindsey ging 07/18/2016 5:01 PM EST Impressions 07/18/2016 5:18 PM EST No radiographic evidence of acute cardiopulmonary process. Narrative 07/18/2016 5:18 PM EST EXAMINATION: XR CHEST PA AND LATERAL DATE: 07/18/2016 5:01 PM HISTORY: Chest pain and described right arm weakness. COMPARISON: Chest series 06/28/2016. TECHNIQUE: PA and lateral views of the chest. FINDINGS: Heart size and mediastinal contours are within normal limits. Pulmonary vasculature is within normal limits. The lungs are clear without focal airspace opacity, pleural effusion or pneumothorax. Procedure Note Valentin Asher MD - 07/18/2016 EXAMINATION: XR CHEST PA AND LATERAL DATE: 07/18/2016 5:01 PM HISTORY: Chest pain and described right arm weakness. COMPARISON: Chest series 06/28/2016. TECHNIQUE: PA and lateral views of the chest. FINDINGS: Heart size and mediastinal contours are within normal limits. Pulmonary vasculature is within normal limits. The lungs are clear withoutfocal airspace opacity, pleural effusion or pneumothorax. IMPRESSION: No radiographic evidence of acute cardiopulmonary process. Alam Lin MD IMG DIAGNOSTIC IMAGING [facility] Final Result * EK EKG 12 LEAD (07/18/2016 4:26 PM EST) Only the most recent of12 resultswithin the time period is included. Anatomical Region Laterality Modality Electrocardiogra phy 07/18/2016 4:39 PM EST Impressions 07/19/2016 9:44 PM EST Stationary ECG Study [facility] Interpretive Statements SINUS BRADYCARDIA POSSIBLE LEFT ATRIAL ENLARGEMENT Electronically Signed On 07-19-2016 21:43:59 EST by Kaleb Romero MD Narrative Procedure Note Rip Romero MD - 07/19/2016 IMPRESSION Stationary ECG Study [facility] Interpretive Statements SINUS BRADYCARDIA POSSIBLE LEFT ATRIAL ENLARGEMENT Electronically Signed On 07-19-2016 21:43:59 EST by Kaleb Romero MD Alma Lin MD IMG ECG ORDERABLES Final Re sult * CT CERVICAL SPINE WO CONTRAST (07/15/2016 5:11 PM EST) Only the most recent of3 resultswithin the time period is included. Anatomical Region Laterality Modality C-spine Computed Tomogra phy 07/15/2016 5:11 PM EST Impressions 07/15/2016 5:17 PM EST Minor endplate degenerative changes C5-C6. No fracture, no acute abnormality. Narrative 07/15/2016 5:[address] CERVICAL SPINE WO CONTRAST 07/15/2016 5:11 PM History: 51 years .Female. -right arm weakness and pain. Technical: Helical acquisition with multiplanar reconstruction. No contrast. FINDINGS: Vertebral body height, disc space preserved throughout. Minor degenerative changes endplates at C5-C6. No cervical canal compromise. No fracture, no subluxation. No prevertebral soft tissue swelling. Procedure Note Grant Figueredo MD - 07/15/2016 CT CERVICAL SPINE WO CONTRAST 07/15/2016 5:11 PM History: 51 years .Female. -right arm weakness and pain. Technical: Helical acquisition with multiplanar reconstruction. Nocontrast. FINDINGS: Vertebral body height, disc space preserved throughout. Minordegenerative changes endplates at C5-C6. No cervical canal compromise. No fracture, no subluxation. No prevertebral soft tissue swelling. IMPRESSION: Minor endplate degenerative changes C5-C6. No fracture, no acute abnormality. Cielo Perry MD IMG CT ORDERABLES Final Resu lt * CT HEAD WO CONTRAST (07/15/2016 5:02 PM EST) Only the most recent of11 resultswithin the time period is included. Anatomical Region Laterality Modality Head Computed Tomogra phy 07/15/2016 5:02 PM EST Impressions 07/15/2016 5:10 PM EST Prior LEFT craniotomy with aneurysm clip. No abnormality of brain or calvarium. No interval change. Narrative 07/15/2016 5:[address] HEAD WO CONTRAST 07/15/2016 5:02 PM History: 51 years .Female. -right arm weakness and pain. Technical: Helical acquisition with multiplanar reconstruction. No contrast. Compare: July 08, 2016 FINDINGS: Prior LEFT craniotomy with aneurysm clip projected over the LEFT carotid siphon region. Ventricles normal in size and position. No mass, no mass effect, no hemorrhage, no extra-axial fluid or blood collection. Closed calvarial defect the craniotomy site. No calvarial abnormality. Procedure Note Grant Figueredo MD - 07/15/2016 CT HEAD WO CONTRAST 07/15/2016 5:02 PM History: 51 years .Female. -right arm weakness and pain. Technical: Helical acquisition with multiplanar reconstruction. Nocontrast. Compare: July 08, 2016 FINDINGS: Prior LEFT craniotomy with aneurysm clip projected over the LEFT carotidsiphon region. Ventricles normal in size and position. No mass, no mass effect, no hemorrhage, no extra-axial fluid or blood collection. Closed calvarial defect the craniotomy site. No calvarial abnormality. IMPRESSION: Prior LEFT craniotomy with aneurysm clip. No abnormality of brain or calvarium. No interval change. us Cielo Perry MD IMG CT ORDERABLES Final Resu lt * SMEAR REVIEW (07/15/2016 4:30 PM EST) Only the most recent of5 resultswithin the time period is included. [facility] Polychrom Slight [facility] Ovalocyte Occasional [facility] Teardrop Cell Occasional [facility] Blood specimen (specimen) 07/15/2016 4:30 PM EST 07/15/2016 4:30 PM EST us Cielo Perry MD HEMATOLOGY ORDERABLES Final Result [facility] [address], [place] [id number] * SCANNED EKG (07/09/2016 11:19 AM EST) Only the most recent of5 resultswithin the time period is included. Anatomical Region Laterality Modality Other 07/09/2016 11:1 9 AM EST us Unknown Unknown IMG ECG ORDERABLES Final Result * CT ANGIOGRAM HEAD AND NECK W CONTRAST (07/08/2016 3:18 PM EST) Anatomical Region Laterality Modality Head Computed Tomogra phy 07/08/2016 3:18 PM EST Impressions 07/08/2016 3:44 PM EST 1. No stenoses involving cervical or intracranial vessels. 2. 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 No recurrent or new aneurysm seen. 3. 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 Narrative 07/08/2016 3:[address] ANGIOGRAM HEAD AND NECK WITH CONTRAST 07/08/2016 COMPARISON: Head CT, less than one hour prior. CT maxillofacial region with contrast, 07/02/2006. INDICATION: 51-year-old with history of prior aneurysm clipping presents with right-sided weakness. TECHNICAL FACTORS: 0.5 mm acquired axial images obtained from aortic arch to upper brain following administration 75 mL of IV Isovue-370. Coronal and sagittal standard, and coronal 3D MIP reconstructed images obtained. Study also manipulated on 3 D workstation. FINDINGS: Aortic arch is patent. There is no atherosclerotic calcification. There is normal three great vessel anatomy all with patent vessels. Both vertebral arteries are codominant and patent. Bilateral common carotid arteries and bifurcations are patent. Posterior inferior right ICA bulb has been atherosclerotic calcification without lumen compromise. Both cavernous ICA caliber as are similar. Aneurysm clip is located above anterior left cavernous ICA genu. Left carotid terminus is patent. Both middle and anterior cerebral arteries are normal. A tiny anterior communicating artery suggested. Basilar and posterior cerebral arteries are normal. No posterior communicating artery seen. No new aneurysms seen. Bilateral distal cerebral vessel enhancement is similar side to side. Since earlier head CT, no new low-attenuation areas have developed. There is no intraparenchymal enhancing lesion. Left inferior frontal temporal craniotomy defect noted. C5-C6 anterior endplates have mild hypertrophic changes. No significant disc disease or central canal stenosis. Left maxillary sinus has moderate to advanced mucoperiosteal thickening. There is been prior bilateral nasal antral window procedures and resection of left middle turbinate. Inferior mid posterior left ethmoid air cells are mild to moderately opacified. Mastoid sinuses are clear. Upper lungs are clear. Thyroid gland has heterogeneous enhancement. A small calcification is in left thyroid lobe. Vessel evaluation by NASCET criteria. Procedure Note Dori Silver MD - 07/08/2016 CT ANGIOGRAM HEAD AND NECK WITH CONTRAST 07/08/2016 COMPARISON: Head CT, less than one hour prior. CT maxillofacial regionwith contrast, 07/02/2006. INDICATION: 51-year-old with history of prior aneurysm clippingpresents with right-sided weakness. TECHNICAL FACTORS: 0.5 mm acquired axial images obtained from aortic archto upper brain following administration 75 mL of IV Isovue-370. Coronal and sagittal standard, and coronal 3D MIP reconstructed images obtained. Studyalso manipulated on 3 D workstation. FINDINGS: Aortic arch is patent. There is no atherosclerotic calcification. Thereis normal three great vessel anatomy all with patent vessels. Both vertebral arteries are codominant and patent. Bilateral commoncarotid arteries and bifurcations are patent. Posterior inferior right ICA bulbhas been atherosclerotic calcification without lumen compromise. Both cavernous ICA caliber as are similar. Aneurysm clip is locatedabove anterior left cavernous ICA genu. Left carotid terminus is patent. Bothmiddle and anterior cerebral arteries are normal. A tiny anterior communicatingartery suggested. Basilar and posterior cerebral arteries are normal. No posteriorcommunicating artery seen. No new aneurysms seen. Bilateral distal cerebral vesselenhancement is similar side to side. Since earlier head CT, no new low-attenuationareas have developed. There is no intraparenchymal enhancing lesion. Leftinferior frontal temporal craniotomy defect noted. C5-C6 anterior endplates have mild hypertrophic changes. No significantdisc disease or central canal stenosis. Left maxillary sinus has moderate to advanced mucoperiosteal thickening.There is been prior bilateral nasal antral window procedures and resection ofleft middle turbinate. Inferior mid posterior left ethmoid air cells are mildto moderately opacified. Mastoid sinuses are clear. Upper lungs are clear. Thyroid gland has heterogeneous enhancement. Asmall calcification is in left thyroid lobe. Vessel evaluation by NASCET criteria. IMPRESSION: 1. No stenoses involving cervical or intracranial vessels. 2. 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 Norecurrent or new aneurysm seen. 3. Moderate to advanced left maxillary sinus disease with lesserinvolvement of posterior inferior left ethmoid sinus. Vivian Patrick MD IMG CT ORDERABLES Final Result * GLUCOSE METER POC (07/08/2016 1:18 PM EST) Only the most recent of2 resultswithin the time period is included. Pathologist [facility] Glucose Meter POC 100 70 - 100 mg/dL [facility] Blood specimen (specimen) 07/08/2016 1:18 PM EST 07/08/2016 1:18 PM EST Vivian Patrick MD POINT OF CARE TEST ORDERABLES F inal Result Performing Organization Address [facility] Co de Phone Number [facility] [address] [place] [address] * LIPASE LEVEL (07/02/2016 4:20 PM EST) Only the most recent of7 resultswithin the time period is included. Pathologist [facility] Lipase Lvl 25 13 - 60 IU/L [facility] Blood specimen (specimen) UPPER LIMB STRUCTURE / Unknown 07/02/2016 4:20 PM EST 07/02/2016 4:46 PM EST Chan Hernandez MD CHEMISTRY ORDERABLES Final Resu lt Performing Organization Address City/[facility]/ZIP Co de Phone Number [facility] [address] [phone] * (ABNORMAL) DRUGS OF ABUSE, SCREEN ONLY, URINE (07/02/2016 4:15 PM EST) Only the most recent of4 resultswithin the time period is included. Pathologist [facility] Cannaboinoid Screen, Urine Presumptive Pos(A) 50 ng/mL [facility] Benzodiazepines Screen Presumptive Pos(A) 200 ng/mL [facility] Cocaine(Metab.)Scr een, Urine Absent 150 ng/mL [facility] Opiate 300 Screen Presumptive Pos(A) 300 ng/mL [facility] Barbiturate Screen, Urine Absent 200 ng/mL [facility] Amphetamine Screen, Urine Absent 500 ng/mL [facility] Phencyclidine Screen Absent 25 ng/mL [facility] Methadone Screen, Urine Absent 300 ng/mL [facility] Oxycodone Screen Absent 100 ng/mL [facility] 6 AM (Heroin) Screen Absent 10 ng/mL [facility] Buprenorphine Screen Absent 5 ng/mL [facility] Creatinine Ur >25.0 mg/dL [facility] Comment: Greater than 20: Consistent with valid sample Greater than 2 but less than 20: Possible dilution Less than 2: Questionable valid sample Drug Screen Note These drug classes have been screened by immunoassay and are for medical purposes only. Results should not be used for non-medical purposes. These results are only valid for urine specimens. Any contamination with vaginal pool/amniotic fluid could cause erroneous results. If confirmation is desired, please place a separate order for each drug confirmation. Specimens will be saved for 3 business days should additional orders/testing be desired. [facility] Urine specimen (specimen) STRUCTURE OF URINARY TRACT PROPER / Unknown 07/02/2016 4:15 PM EST 07/02/2016 4:50 PM EST Chan Hernandez MD URINE ORDERABLES Final Result [facility] [address] [place] [address] * (ABNORMAL) URINALYSIS (07/02/2016 4:15 PM EST) Only the most recent of5 resultswithin the time period is included. UA Color Dark Yellow [facility] UA Appear Clear Clear [facility] UA Glucose Negative Negative [facility] UA Ketones 1+ (15 mg/dl)(A) Negative [facility] UA Blood Negative Negative [facility] UA pH 7.5 5.0 - 8.0 [facility] Comment:Reference range lillian d for random specimens only. UA Protein Negative Negative [facility] UA Urobilinogen 4.0 E.U./dL(A) <=1 E.U./dL [facility] UA Nitrite Negative Negative [facility] UA Leuk Est Trace(A) Negative [facility] UA Spec Grav 1.015 1.001 - 1.035 [facility] Comment:Reference range lillian d for random specimens only. UA WBC 0-2 0 - 4 /HPF [facility] UA Squam Epi 3+ [facility] UA Mucus Trace [facility] UA Amorph Trace [facility] UA [facility]acteria Trace [facility] UA Hyal Cast 0-2 0 - 2 /LPF [facility] Urine specimen (specimen) STRUCTURE OF URINARY TRACT PROPER / Unknown 07/02/2016 4:15 PM EST 07/02/2016 4:50 PM EST us Chan Hernandez MD URINE ORDERABLES Final Result Performing Organization Address [facility] de Phone Number [facility] [address] [place] [address] * SCANNED RHYTHM STRIPS (07/01/2016 8:20 PM EST) Only the most recent of8 resultswithin the time period is included. Anatomical Region Laterality Modality Other 07/01/2016 8:20 PM EST us Unknown Unknown IMG ECG ORDERABLES Final Result * TROPONIN-T (06/28/2016 6:30 PM EST) Only the most recent of2 resultswithin the time period is included. Troponin-T <0.01 <=0.00 ng/mL [facility] Comment: Values > or = 0.01 ng/mL have been shown to have prognostic value. Blood specimen (specimen) 06/28/2016 6:30 PM EST 06/28/2016 6:42 PM EST us Andrei Christiansen MD CHEMISTRY ORDERABLES Final Resu lt Performing Organization Address City/[facility] Co de Phone Number [facility] [address] [phone] * HEPATITIS B SURFACE ANTIBODY (06/27/2016 3:10 PM EST) Hep Bs Ab <3.08 mcIU/mL [facility] Comment: < 8.00 mIU/mL - NON REACTIVE (Not immune to HBV infection) 8.0 - 11.99 mIU/mL - GRAYZONE (Immune status should be further assessed by considering other factors such as clinical status, follow up testing , associated risk factors, and the use of additional diagnostic information.) >= 12.00 mIU/mL - REACTIVE (Immune to HBV infection.) Blood specimen (specimen) UPPER LIMB STRUCTURE / Unknown 06/27/2016 3:10 PM EST 06/27/2016 6:41 PM EST us Jordin Pappas MD PHD IMMUNOLOGY ORDERABLES Final Result Performing Organization Address [facility] Co de Phone Number [facility] [address] [place] [address] * (ABNORMAL) CMV IGG/IGM (06/26/2016 11:37 AM EST) Pathologist [facility] CMV IgG Negative [facility] Comment: A negative result indicates no current or previous infection with CMV. Presume that such individuals are susceptible to primary infections. However, specimens taken too early during a primary infection may not have detectable levels of IgG antibody. If a primary infection is suspected, take another sample in 8 to 14 days. CMV IgM Positive(A) [facility] Comment:A positive value ind icates primary infection or reactivated infection with CMV. Presume that such individuals are at risk of transmitting CMV infection, but are not necessarily currently contagious. Blood specimen (specimen) 06/26/2016 11:37 AM EST 06/26/2016 2:08 PM EST us Tiffanie Ortega APRN IMMUNOLOGY ORDERABLES Final Result Performing Organization Address [facility] Co de Phone Number [facility] [address] [place] [address] * EBV VIRAL CAPSID ANTIBODIES (06/26/2016 11:37 AM EST) EB VCA IgM <10.0 unit/mL [facility] Comment: Sample results should be interpreted as follows: <36.0 U/mL Negative Absence of detectable VCA IgM antibodies. If exposure to Louis-Zimmerman virus is suspected despite a negative finding, a second sample should be collected and tested no less than one to two weeks later. 36.0 to 43.9 U/mL Equivocal The equivocal sample should be repeat tested. In case the result remains in this range after repeat testing, a second sample should be collected and tested no less than one to two weeks later. > 44.0 U/mL Positive Presence of detectable VCA IgM antibodies. Specific IgM antibodies are usually detected in patients with recent primary infections and may be found in patients with reactivated infections. Other EBV serology assays should be performed to confirm EBV-associated infectious mononucleosis. Note - The magnitude of the measured result, above the cutoff, is not indicative of the amount of antibody present. EB VCA IgG 195.0 unit/mL [facility] Comment: Sample results should be interpreted as follows: < 18.0 U/mL Negative Absence of detectable VCA IgG antibodies. If exposure to Louis-Zimmerman virus is suspected despite a negative finding, a second sample should be collected and tested no less than one to two weeks later. 18.0 to 21.9 U/mL Equivocal The equivocal sample should be repeat tested. In case the result remains in this range after repeat testing, a second sample should be collected and tested no less than one or two weeks later. > 22 U/mL Positive Presence of detectable VCA IgG antibodies. A positive result indicates current or past exposure to Louis-Zimmerman virus. Note - The magnitude of the measured result, above the cutoff, is not indicative of the amount of antibody present. Blood specimen (specimen) 06/26/2016 11:37 AM EST 06/26/2016 2:08 PM EST us Tiffanie Ortega APRN IMMUNOLOGY ORDERABLES Final Result [facility] [address] [place] [address] * MITOCHONDRIAL M2 ANTIBODY, IGG -REF LAB (06/26/2016 11:37 AM EST) Pathologist [facility] Mitochon Ab IgG 8.6 0.0 - 20.0 [facility] Comment: INTERPRETIVE INFORMATION: Mitochondrial (M2) Antibody, IgG 20.0 Units or less ......... Negative 20.1 - 24.9 Units........... Equivocal 25.0 Units or greater....... Positive Performed by [email or web address], [address] [place] [address] [email or web address], Adrián Cardenas MD - Lab. Director Blood specimen (specimen) 06/26/2016 11:37 AM EST 06/26/2016 1:37 PM EST Tiffanie Ortega APRN IMMUNOLOGY ORDERABLES Final Result Performing Organization Address City/[facility]/ZIP Co de Phone Number [facility] [address] [place] [address] * ANTINUCLEAR ANTIBODY SCREEN (06/26/2016 11:37 AM EST) Only the most recent of2 resultswithin the time period is included. [facility] JUSTIN Screen Negative [facility] Comment: JUSTIN samples are screened using an automated EIA assay. All samples that screen positive are titered by an IFA method and will include an JUSTIN pattern. A titer of < 1:80 is considered clinically insignificant. In general, a titer >= 1:160 is considered significant positive. Blood specimen (specimen) 06/26/2016 11:37 AM EST 06/26/2016 2:08 PM EST Tiffanie Orteag APRN IMMUNOLOGY ORDERABLES Final Result [facility] [address] [place] [address] * PARTIAL THROMBOPLASTIN TIME (06/26/2016 5:27 AM EST) Only the most recent of6 resultswithin the time period is included. Pathologist [facility] PTT 33.0 26.0 - 36.4 second(s) [facility] Comment: Therapeutic range for direct thrombin inhibitors: Argatroban is 1.5 to 3 times the aPTT baseline. Lepirudin is 1.5 to 2 times the aPTT baseline. The aPTT should not exceed 100 seconds. The dosage of Argatroban should be decreased in patients with hepatic impairment. The dosage of Lepirudin should be decreased in renal insufficiency. The aPTT is no longer the appropriate test to monitor unfractionated heparin anticoagulation. Blood specimen (specimen) UPPER LIMB STRUCTURE / Unknown 06/26/2016 5:27 AM EST 06/26/2016 6:21 AM EST Yony Silva MD HEMATOLOGY ORDERABLES Final Result Performing Organization Address [facility] de Phone Number [facility] [address] [place] [address] * (ABNORMAL) BILIRUBIN TOTAL AND DIRECT (06/26/2016 5:27 AM EST) Only the most recent of3 resultswithin the time period is included. Bili Direct 2.8(H) 0.0 - 0.3 mg/dL [facility] Bili Total 4.3(H) 0.1 - 1.3 mg/dL [facility] Blood specimen (specimen) UPPER LIMB STRUCTURE / Unknown 06/26/2016 5:27 AM EST 06/26/2016 6:21 AM EST Yony Silva MD CHEMISTRY ORDERABLES Final R esult Performing Organization Address [facility] de Phone Number [facility] [address] [place] [address] * MAGNESIUM LEVEL (06/26/2016 5:27 AM EST) Only the most recent of5 resultswithin the time period is included. Magnesium 1.7 1.6 - 2.4 mg/dL [facility] Blood specimen (specimen) 06/26/2016 5:27 AM EST 06/26/2016 6:21 AM EST Yony Silva MD CHEMISTRY ORDERABLES Final R esult Performing Organization Address [facility] Co de Phone Number [facility] [address] [place] [address] * AMMONIA LEVEL (06/24/2016 9:57 AM EST) Pathologist [facility] Ammonia 46 11 - 51 mcmol/L [facility] Blood specimen (specimen) UPPER LIMB STRUCTURE / Unknown 06/24/2016 9:57 AM EST 06/24/2016 10:08 AM EST Eriberto Pittman MD CHEMISTRY ORDERABLES Final Resu lt Performing Organization Address [facility] Co de Phone Number [facility] [address] [place] [address] * HIV AG/AB (06/23/2016 2:42 PM EST) [facility] HIV Ag/AB Non-Reacti ve [facility] Blood specimen (specimen) 06/23/2016 2:42 PM EST 06/23/2016 7:31 PM EST Yony Silva MD IMMUNOLOGY ORDERABLES Final Result Performing Organization Address [facility] de Phone Number [facility] [address] [place] [address] * (ABNORMAL) HSV TYPE 1,2, IGG -REF LAB (06/23/2016 2:42 PM EST) [facility] HSV 1 IgG 0.20 <=0.90 IV [employer] Comment: INTERPRETIVE INFORMATION: HSV 1 Glycoprotein G Ab, IgG (HANSEL) 0.90 IV or less ........ Negative - No significant level of detectable IgG antibody to HSV type 1 glycoprotein G. 0.91 - 1.09 IV ......... Equivocal - Questionable presence of IgG antibody to HSV type 1 glycoprotein G. Repeat testing in 10-14 days may be helpful. 1.10 IV or greater ..... Positive - IgG antibody to HSV type 1 glycoprotein G detected, which may indicate a current or past HSV infection. Individuals infected with HSV may not exhibit detectable IgG antibody to type specific HSV antigens 1 and 2 in the early stages of infection. Detection of antibody presence in these cases may only be possible using a non-type specific screening test. HSV 2 IgG 13.30(H) <=0.90 IV [employer] Comment: INTERPRETIVE INFORMATION: HSV 2 Glycoprotein G Ab, IgG (HANSEL) 0.90 IV or less ....... Negative - No significant level of detectable IgG antibody to HSV type 2 glycoprotein G. 0.91 - 1.09 IV ........ Equivocal - Questionable presence of IgG antibody to HSV type 2 glycoprotein G. Repeat testing in 10-14 days may be helpful. 1.10 IV or greater .... Positive - IgG antibody to HSV type 2 glycoprotein G detected, which may indicate a current or past HSV infection. Individuals infected with HSV may not exhibit detectable IgG antibody to type specific HSV antigens 1 and 2 in the early stages of infection. Detection of antibody presence in these cases may only be possible using a non-type specific screening test. Performed by [facility], [address] [place] [address] [email or web address], Adrián Cardenas MD - Lab. Director Blood specimen (specimen) UPPER LIMB STRUCTURE / Unknown 06/23/2016 2:42 PM EST 06/23/2016 7:04 PM EST us Yony Silva MD IMMUNOLOGY ORDERABLES Final Result [facility] [address] [place] [address] * US RIGHT UPPER QUADRANT (06/23/2016 1:45 PM EST) Anatomical Region Laterality Modality Abdomen Ultrasound 06/23/2016 1:45 PM EST Impressions 06/23/2016 2:26 PM EST Normal exam. Code jot stat Narrative 06/23/2016 2:26 PM EST US RIGHT UPPER QUADRANT 06/23/2016 1:45 PM Clinical: -hepatitis FINDINGS: The gallbladder is well-seen and is normal, without evidence of stone or wall thickening. Visualized portions of the liver, pancreas and right kidney are normal. The common bile duct measures 5 mm. Procedure Note Toñito Alejo MD - 06/23/2016 US RIGHT UPPER QUADRANT 06/23/2016 1:45 PM Clinical: -hepatitis FINDINGS: The gallbladder is well-seen and is normal, without evidence ofstone or wall thickening. Visualized portions of the liver, pancreas and rightkidney are normal. The common bile duct measures 5 mm. IMPRESSION: Normal exam. Code jot stat us Yony Silva MD IMG US ORDERABLES Final Resu lt * VALPROIC ACID LEVEL (06/23/2016 6:13 AM EST) Only the most recent of14 resultswithin the time period is included. Valproic 89.1 50.0 - 100.0 mcg/mL [facility] Blood specimen (specimen) UPPER LIMB STRUCTURE / Unknown 06/23/2016 6:13 AM EST 06/23/2016 6:47 AM EST Sugey Gaston APRN CHEMISTRY ORDERABLES Final Result [facility] [address] [id number] * CT ABD PEL ED FAST W CONTRAST (06/22/2016 4:56 PM EST) Anatomical Region Laterality Modality Abdomen, Pelvis Computed Tomogra phy 06/22/2016 4:56 PM EST Impressions 06/22/2016 5:30 PM EST Hepatic steatosis. Possible distal esophagitis. Indeterminate bulla in the pulmonary right lower lobe measuring 3.0 cm in maximal diameter as described above.. Narrative 06/22/2016 5:30 PM EST Procedure: CT abdomen and pelvis with contrast including reformats, 06/22/2016. INDICATION: Emesis. Possible jaundice. FINDINGS: CT abdomen and pelvis is performed with 75 cc Isovue-370. 2-D sagittal and coronal reformats are obtained and reviewed. ABDOMEN: There is a 3.0 x 2.1 cm bulla in the medial right lung base which is somewhat thick-walled. I do not believe that this is a cavitary mass but more likely the sequela of old infection, possibly aspiration pneumonia. There is diffuse hepatic steatosis. There is some thickening of the lower esophagus wall which could represent esophagitis. Left renal cysts. The liver, spleen, pancreas, kidneys, adrenals, bowel and skeleton are otherwise unremarkable. There is no bile duct dilatation. Pelvis: There are no distal ureteral stones or obstruction. No evidence of appendicitis.. Prior hysterectomy. No evidence of diverticulitis. Procedure Note Irvin Helton MD - 06/22/2016 Procedure: CT abdomen and pelvis with contrast including reformats,06/22/2016. INDICATION: Emesis. Possible jaundice. FINDINGS: CT abdomen and pelvis is performed with 75 cc Isovue-370. 2-Dsagittal and coronal reformats are obtained and reviewed. ABDOMEN: There is a 3.0 x 2.1 cm bulla in the medial right lung base whichis somewhat thick-walled. I do not believe that this is a cavitary mass butmore likely the sequela of old infection, possibly aspiration pneumonia. Thereis diffuse hepatic steatosis. There is some thickening of the lower esophaguswall which could represent esophagitis. Left renal cysts. The liver, spleen, pancreas, kidneys, adrenals, bowel and skeleton are otherwiseunremarkable. There is no bile duct dilatation. Pelvis: There are no distal ureteral stones or obstruction. No evidenceof appendicitis.. Prior hysterectomy. No evidence of diverticulitis. IMPRESSION: Hepatic steatosis. Possible distal esophagitis. Indeterminate bulla in the pulmonary right lower lobe measuring 3.0 cm in maximal diameteras described above.. Grant Kim MD [facility] CT ORDERABLES Final Result * (ABNORMAL) HEPATITIS B SURFACE AG CONFIRM-REF LAB (06/22/2016 3:20 PM EST) HBSAG CONFIRM Positive( A) Non Confirmed [facility] Comment: Hepatitis B surface antigen (HBsAg) did neutralize using anti-HBs. This specimen is therefore POSITIVE for HBsAg. False positives can occur. If the result is not supported by clinical evidence, repeat testing of a new sample usually helps clarify the diagnosis. INTERPRETIVE INFORMATION: Hepatitis B Surface Ag Confirmation This assay should not be used for blood donor screening, associated re-entry protocols, or for screening Human Cells, Tissues and Cellular and Tissue-Based Products (HCT/P). Performed by [facility], [address] [place] [address] [email or web address], Adrián Cardenas MD - Lab. Director Blood specimen (specimen) 06/22/2016 3:20 PM EST 06/23/2016 3:23 PM EST Grant Kim MD CHEMISTRY ORDERABLES Final Resul t Performing Organization Address [facility]/ZIP Co de Phone Number [facility] [address] [place] [address] * (ABNORMAL) ACUTE HEPATITIS PANEL (06/22/2016 3:20 PM EST) Hep Bs Ag Positive(A) Negative [facility] HBsAg Confirm Result HBSAG Conf from [facility] Comment:Positive Hep B Core IgM Positive(A) Negative [facility] Hep A IgM Negative Negative [facility] Hep C Ab Negative Negative [facility] Blood specimen (specimen) UPPER LIMB STRUCTURE / Unknown 06/22/2016 3:20 PM EST 06/22/2016 7:13 PM EST us Grant Kim MD CHEMISTRY ORDERABLES Edited Resu lt - Final Performing Organization Address [facility] Co de Phone Number [facility] [address] [place] [address] * XR ELBOW RIGHT AP LATERAL AND OBLIQUES (03/28/2016 7:44 PM EDT) Anatomical Region Laterality Modality Elbow Radiographic Lindsey ging 03/28/2016 7:44 PM EDT Impressions 03/28/2016 8:09 PM EDT Impression: No acute finding Narrative 03/28/2016 8:09 PM EDT XR ELBOW RIGHT AP LATERAL AND OBLIQUES 03/28/2016 8:09 PM HISTORY: Antecubital fossa abscess Other info: -ABSCESS Comparison: None No osseous, soft tissue, joint space abnormality seen. Procedure Note Kobe Schwartz MD - 03/28/2016 XR ELBOW RIGHT AP LATERAL AND OBLIQUES 03/28/2016 8:09 PM HISTORY: Antecubital fossa abscess Other info: -ABSCESS Comparison: None No osseous, soft tissue, joint space abnormality seen. IMPRESSION Impression: No acute finding Jennifer Ferguson Petra CROWNING INSPECTOR IMG DIAGNOSTIC IMAGING ORDER MANUEL Final Result * MM MAMMO DIGITAL DIAGNOSTIC W CAD BILAT (06/08/2015 2:46 PM EST) Only the most recent of2 resultswithin the time period is included. Anatomical Region Laterality Modality Breast Bilateral Mammography 06/09/2015 9:50 AM EST Impressions 06/09/2015 3:44 PM EST : Benign finding ([id number]) ~ RECOMMENDATION: Routine screening mammogram in 1 year. ~ * The patient with a palpable abnormality, unexplained by breast imaging, should be managed on clinical basis by the attending physician. * Breast imaging has a false negative rate of 15%. * The patient was notified by mail of the results of this examination. *The patient's information was entered into a reminder system with a target due date for the next mammogram. The mammogram was reviewed by a Radiologist and CAD. Narrative 06/09/2015 3:44 PM EST Procedure:MM MAMMO DIGITAL DIAGNOSTIC W CAD BILAT ~ Reason for exam: follow-up at short interval from prior study. ~ MM MAMMO DIGITAL DIAG CAD BILAT Bilateral CC and MLO view(s) were taken. There are scattered fibroglandular densities. There are benign appearing milk calcium in the right breast at 1 o'clock position. ~ us Yony Hair Sr., MD IMG MAMMOGRAPHY ORDE LEON Final Result * XR FACIAL BONES COMPLETE 3 + VW (12/10/2014 11:31 AM EDT) Anatomical Region Laterality Modality Head Radiographic Lindsey ging 12/10/2014 10:2 6 AM EDT Impressions 12/10/2014 12:00 PM EDT IMPRESSION: No evidence of facial bone fracture. Narrative 12/10/2014 12:00 PM EDT XR FACIAL BONES COMPLETE 3 + VW Dec 10, 2014 11:32:03 AM HISTORY: -SEIZURES. Prior craniotomy and aneurysm clip. The facial bones are intact, without fracture. Paranasal sinuses are clear. Procedure Note Andrei Sparks MD - 12/10/2014 XR FACIAL BONES COMPLETE 3 + VW Dec 10, 2014 11:32:03 AM HISTORY: -SEIZURES. Prior craniotomy and aneurysm clip. The facial bones are intact, withoutfracture. Paranasal sinuses are clear. IMPRESSION: No evidence of facial bone fracture. Ivis Gomez MD IMG DIAGNOSTIC IMAGING ORDE LEON Final Result * LH/FSH (12/01/2014 7:56 AM EDT) LH 38.10 mIU/mL [facility] Comment: Suggested Reference Ranges (mIU/mL) Females Follicular Phase 2.4 - 12.6 Ovulation Phase 14.0 - 95.6 Luteal Phase 1.0 - 11.4 Postmenopause 7.7 - 58.5 Males 1.7 - 8.6 FSH 68.20 mIU/mL [facility] Comment: Suggested Reference Range (mIU/mL) Females Follicular Phase 3.5 - 12.5 Ovulation Phase 4.7 - 21.5 Luteal Phase 1.7 - 7.7 Postmenopause 25.8 - 134.8 Males 1.5 - 12.4 Blood specimen (specimen) UPPER LIMB STRUCTURE / Unknown 12/01/2014 7:56 AM EDT 12/01/2014 2:20 PM EDT Jordin Dos Santos MD IMMUNOLOGY ORDERABLES Edited Result - Final [facility] [address] [place] [address] * VITAMIN B12 LEVEL (12/01/2014 7:56 AM EDT) Vitamin B12 548 211 - 946 pg/mL [facility] Blood specimen (specimen) UPPER LIMB STRUCTURE / Unknown 12/01/2014 7:56 AM EDT 12/01/2014 2:20 PM EDT Jordin Dos Santos MD CHEMISTRY ORDERABLES Final R esult [facility] [address] [place] [address] * MRI CERVICAL SPINE WO CONTRAST (07/01/2014 4:07 PM EST) Anatomical Region Laterality Modality C-spine Magnetic Resonan ce 07/01/2014 2:03 PM EST Impressions 07/01/2014 4:42 PM EST IMPRESSION: Mild disc bulge at C5-C6. Narrative 07/01/2014 4:42 PM EST MRI CERVICAL SPINE WO CONTRAST EXAM DATE Jul 01, 2014 04:07:38 PM HISTORY: 721.90-Spondylosis of unspecified site without mention of [id number] FINDINGS: There is normal alignment of the cervical spine. There is normal marrow signal of the vertebral bodies.Spinal cord has normal signal. There is normal positioning of the cerebellar tonsils. There is a mild diffuse disc bulge at C5-C6 without significant central canal stenosis. There is an minimal Central disc bulge at C4-C5 without significant central canal stenosis or foraminal narrowing. Remainder of the disc levels are within normal limits. Procedure Note Parvin Adames MD - 07/01/2014 MRI CERVICAL SPINE WO CONTRAST EXAM DATE Jul 01, 2014 04:07:38 PM HISTORY: 721.90-Spondylosis of unspecified site without mention [id number] FINDINGS: There is normal alignment of the cervical spine. There is normal marrowsignal of the vertebral bodies.Spinal cord has normal signal. There is normal positioning of thecerebellar tonsils. There is a mild diffuse disc bulge at C5-C6 without significant centralcanal stenosis. There is an minimal Central disc bulge at C4-C5 without significant centralcanal stenosis or foraminal narrowing. Remainder of the disc levels are within normal limits. IMPRESSION: Mild disc bulge at C5-C6. us Yony Luis MD IMG MRI ORDERABLES Final Result * MRI LUMBAR SPINE WO CONTRAST (07/01/2014 3:43 PM EST) Anatomical Region Laterality Modality L-spine Magnetic Resonan ce 07/01/2014 2:03 PM EST Impressions 07/01/2014 4:37 PM EST IMPRESSION: Facet arthropathy 5 and L5-L1. Narrative 07/01/2014 4:37 PM EST MRI LUMBAR SPINE WO CONTRAST EXAM DATE Jul 01, 2014 03:43:46 PM HISTORY: 721.90-Spondylosis of unspecified site without mention of [id number] FINDINGS: There is normal alignment of lumbar spine. The conus lies at L1. There is normal signal and contour of the discs. There is focal fatty infiltration of the marrow at L4. Neural foramen are patent. There is moderate facet arthropathy at L4-L5. Spurring of the facet joints causes mild impression on the lateral aspect of the thecal sac. There is mild to moderate facet arthropathy at L5-S1. 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 There is simple cysts in the left kidney. Procedure Note Parvin Adames MD - 07/01/2014 MRI LUMBAR SPINE WO CONTRAST EXAM DATE Jul 01, 2014 03:43:46 PM HISTORY: 721.90-Spondylosis of unspecified site without mention [id number] FINDINGS: There is normal alignment of lumbar spine. The conus lies at L1. There isnormal signal and contour of the discs. There is focal fatty infiltration of the marrow atL4. Neural foramen are patent. There is moderate facet arthropathy at L4-L5. Spurring of the facet jointscauses mild impression on the lateral aspect of the thecal sac. There is mild tomoderate facet arthropathy at L5-S1. 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 There is simple cysts in the left kidney. IMPRESSION: Facet arthropathy 5 and L5-L1. us Yony Luis MD IMG MRI ORDERABLES Final Result * (ABNORMAL) POCT JARROD FLOW VOLUME LOOP (06/09/2014 3:03 PM EST) 06/09/2014 3:03 PM EST us Janeen Alegria MD POINT OF CARE JARROD ORDERA BLES Final Result [facility] * (ABNORMAL) POCT URINALYSIS DIPSTICK (06/09/2014 1:30 PM EST) Color, UA yellow Clear, Yellow, Hood, Rust [facility] Clarity, UA clear Clear, Cloudy [facility] Glucose, UA ne g/dl% [facility] Bilirubin, UA net Pos/Neg [facility] Ketones, UA net Pos/Neg SEP aerial planting and cultivation manager Grav, UA 1,015(A) 1.001 - 1.035 g/dl [facility] Blood, UA neg Pos/Neg [facility] pH, UA 7.0 5.0 - 8 [facility] Protein, UA neg Pos/Neg [facility] Urobilinogen, UA 0.2 0.2 - 1.0 mg/dL [facility] Leukocytes, UA neg Pos/Neg [facility] Nitrite, UA neg Pos/Neg [facility] UA Appear POC [facility] Lot Number [id number] [facility]P [facility] Expiration Date 12/2015 SEP OFFICE SeriAl # SEP OFFICE Urine specimen (specimen) 06/09/2014 1:30 PM EST Janeen Alegria MD POINT OF CARE TEST ORDERAB LES Final Result [facility] * XR FOOT LEFT AP LATERAL AND OBLIQUE STANDING (06/02/2014 11:17 AM EST) Anatomical Region Laterality Modality Foot Radiographic Lindsey ging 06/02/2014 10:5 1 AM EST Impressions 06/02/2014 12:04 PM EST IMPRESSION: Stable postsurgical changes Narrative 06/02/2014 12:04 PM EST XR FOOT LEFT AP LATERAL AND OBLIQUE STANDING 06/02/2014 HISTORY: Bunionectomy COMPARISON: May 29, 2014. Changes from prior bunionectomy with hallux fixation screws, stable in appearance. Stable alignment. No hardware complication or destructive lesion. Procedure Note Kobe Schwartz MD - 06/02/2014 XR FOOT LEFT AP LATERAL AND OBLIQUE STANDING 06/02/2014 HISTORY: Bunionectomy COMPARISON: May 29, 2014. Changes from prior bunionectomy with hallux fixation screws, stable inappearance. Stable alignment. No hardware complication or destructive lesion. IMPRESSION: Stable postsurgical changes us David Josue [facility] DIAGNOSTIC IMAGING ORDERABL ES Final Result * XR FOOT RIGHT AP LATERAL AND OBLIQUE STANDING (06/02/2014 11:17 AM EST) Anatomical Region Laterality Modality Foot Radiographic Lindsey ging 06/02/2014 10:5 1 AM EST Impressions 06/02/2014 12:11 PM EST IMPRESSION: Degenerative changes as above Narrative 06/02/2014 12:11 PM EST XR FOOT RIGHT AP LATERAL AND OBLIQUE STANDING 06/02/2014 HISTORY: Pain Three views demonstrate mild first MTP joint degenerative change with hallux valgus deformity. No fracture or dislocation seen Procedure Note Kobe Schwartz MD - 06/02/2014 XR FOOT RIGHT AP LATERAL AND OBLIQUE STANDING 06/02/2014 HISTORY: Pain Three views demonstrate mild first MTP joint degenerative change withhallux valgus deformity. No fracture or dislocation seen IMPRESSION: Degenerative changes as above David Salas [facility] DIAGNOSTIC IMAGING ORDERABL ES Final Result * XR FOOT LEFT AP LATERAL AND OBLIQUE (05/29/2014 3:05 PM EST) Only the most recent of2 resultswithin the time period is included. Anatomical Region Laterality Modality Foot Radiographic Lindsey ging 05/29/2014 2:15 PM EST Impressions 05/29/2014 3:40 PM EST IMPRESSION: 1. Stable alignment and uncomplicated appearance of left hallux realigning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 EDT) Pathologist [facility] Testosterone Lvl 62 6 - 77 ng/dL [facility] Comment: Note: Reference range based on 8:00 AM standard. Blood specimen (specimen) UPPER LIMB STRUCTURE / Unknown 01/19/2013 3:17 PM EDT 01/19/2013 7:51 PM EDT Rell George MD CHEMISTRY ORDERABLES Fi nal Result Performing Organization Address [facility] Co de Phone Number [facility] [address] [place] [address] * XR ANKLE LEFT AP LATERAL AND OBLIQUE (01/16/2013 1:14 AM EDT) Anatomical Region Laterality Modality Ankle Radiographic Lindsey ging 01/16/2013 6:00 AM EDT Impressions 01/16/2013 1:53 AM EDT Impression: No acute fracture or osseous destruction. Narrative 01/16/2013 1:53 AM EDT Three views XR ANKLE LEFT AP LATERAL AND OBLIQUE Jan 16, 2013 01:15:05 AM HISTORY: -FALL. Pain Compare: None Soft tissue swelling noted Procedure Note Keshav Pulliam MD - 01/16/2013 Three views XR ANKLE LEFT AP LATERAL AND OBLIQUE Jan 16, 2013 01:15:05AM HISTORY: -FALL. Pain Compare: None Soft tissue swelling noted Impression: No acute fracture or osseous destruction. Venkat Mcginnis MD [facility] DIAGNOSTIC IMAGING ORDER MANUEL Final Result * DRUG PANEL 10 URINE (12/13/2012 7:45 AM EDT) Only the most recent of2 resultswithin the time period is included. Reason for Test Other [facility] Cannabinoid Metabolite Absent 50 ng/mL [facility] Benzodiazepines Absent 200 ng/mL [facility] Cocaine Metabolite Absent 300 ng/mL [facility] Opiates Absent 2000 ng/mL [facility] Barbiturates Absent 200 ng/mL [facility] Amphetamines Absent 1000 ng/mL [facility] Phencyclidine Absent 25 ng/mL [facility] Methaqualone Absent 300 ng/mL [facility] Methadone and Metabolite Absent 300 ng/mL [facility] Propoxyphene/Norpro poxyphene Absent 300 ng/mL [facility] Urine specimen (specimen) 12/13/2012 7:45 AM EDT 12/13/2012 2:58 PM EDT Narrative [facility] - 12/13/2012 3:46 PM EDT Fax to [phone] Kylie Holden [facility] URINE ORDERABLES Edited R esult - Final [facility] [address] [place] [address] * HEMOGLOBIN A1C (11/21/2012 10:21 AM EDT) Only the most recent of3 resultswithin the time period is included. Hgb A1c 5.7 <=7.0 % [facility] Comment: Initial Diagnostic Criteria < 5.7 % Normal 5.7 - 6.4 % At risk for diabetes mellitus >= 6.5 % Consistent with diabetes mellitus Diabetes monitoring Target Value (ADA recommended): < 7 % Blood specimen (specimen) UPPER LIMB STRUCTURE / Unknown 11/21/2012 10:21 AM EDT 11/21/2012 4:19 PM EDT Janeen Alegria MD CHEMISTRY ORDERABLES Final Result Performing Organization Address [facility] de Phone Number [facility] [address] [place] [address] * (ABNORMAL) LDL, CALCULATED (11/03/2012 10:18 AM EDT) Only the most recent of2 resultswithin the time period is included. LDL Calculated 121(H) <=100 mg/dL [facility] Comment: < 100 Optimal 100 - 129 Near or above optimal 130 - 159 Borderline High 160 - 189 High >= 190 Very High Blood specimen (specimen) 11/03/2012 10:18 AM EDT 11/03/2012 12:18 PM EDT Kylie CHEN CHEMISTRY ORDERABLES Janell l Result Performing Organization Address [facility] de Phone Number [facility] [address] [place] [address] * (ABNORMAL) LIPID PANEL REFLEX (11/03/2012 10:18 AM EDT) Only the most recent of2 resultswithin the time period is included. Cholesterol 236(H) <=200 mg/dL [facility] Comment: < 200 Desirable 200 - 239 Borderline High >= 240 High Triglyceride 321(H) <=150 mg/dL [facility] Comment: < 150 Normal 150 - 199 Borderline High 200 - 499 High >= 500 Very High HDL 51 >=40 mg/dL [facility] Comment: > 60 Optimal 40 - 60 Acceptable < 40 Low Blood specimen (specimen) UPPER LIMB STRUCTURE / Unknown 11/03/2012 10:18 AM EDT 11/03/2012 12:18 PM EDT Narrative [facility] - 11/03/2012 12:59 PM EDT Fax to [phone] Kylie Holden [employer]ER CARE ASSISTANT CHEMISTRY ORDERABLES Janell montes de oca Result [facility] [address] [place] [address] * (ABNORMAL) RENAL FUNCTION PANEL (11/03/2012 10:18 AM EDT) Only the most recent of2 resultswithin the time period is included. Sodium 143 135 - 143 mmol/L [facility] Potassium 4.4 3.5 - 5.0 mmol/L [facility] Chloride 101 98 - 108 mmol/L [facility] Total CO2 28 22 - 31 mmol/L [facility] Anion Gap 14 7 - 16 mmol/L [facility] Calcium 9.8 8.6 - 10.3 mg/dL [facility] Glucose Lvl 120(H) 70 - 100 mg/dL [facility] BUN 17 7 - 19 mg/dL [facility] Creatinine 0.6 0.6 - 1.0 mg/dL [facility] Albumin 4.4 3.5 - 4.5 gm/dL [facility] Phosphorus 4.4 2.7 - 4.5 mg/dL [facility] GFR Afr Am >60 [facility] Comment: GFR is estimated using creatinine, age, gender, and race. GFR has been validated for patients between 18 and 70 years of age. GFR has not been validated for women, patients with serious comorbid conditions, or persons with extremes of body size, muscle mass, or nutritional status. For additional information: www.kidney.org. Chronic kidney disease stage GFR (ml/min/1.73 square meters) Stage 3 30 - 59 Stage 4 15 - 29 Stage 5 14 or less GFR Non Afr Am >60 [facility] Blood specimen (specimen) UPPER LIMB STRUCTURE / Unknown 11/03/2012 10:18 AM EDT 11/03/2012 10:18 AM EDT Narrative [facility] - 11/03/2012 11:06 AM EDT Fax to [phone] us Kylie CHEN CHEMISTRY ORDERABLES Edit ed Result - Final Performing Organization Address [facility] Co de Phone Number [facility] [address] [place] [address] * .CHL/GC GENITAL RESULTS (05/23/2012 7:00 PM EST) C. trachomatis/N. gonorrhoeae Specimen Genital [facility] Comment: Extraction of genetic material from urine and Thin Prep samples was performed using a method that was developed and validated in the performing laboratory. Detailed methodology is available upon request. Chlamydia trachomatis Negative [facility] Neisseria gonorrhoeae Negative [facility] Specimen from genital system (specimen) 05/23/2012 7:00 PM EST 05/24/2012 2:37 PM EST us Mary Enriquez MD MICROBIOLOGY - GENERAL ORDER MANUEL Edited Performing Organization Address [facility] Co de Phone Number [facility] [address] [place] [address] * TRICHOMONAS AG (05/23/2012 7:00 PM EST) Trichomonas Ag Negative [facility] Vaginal swab (specimen) 05/23/2012 7:00 PM EST 05/23/2012 7:26 PM EST us Mary Enriquez MD MICROBIOLOGY - GENERAL ORDER MANUEL Final Result Performing Organization Address [facility] Co de Phone Number [facility] [address] [place] [address] * XR HAND RIGHT PA (10/16/2011 3:44 AM EDT) Anatomical Region Laterality Modality Hand Radiographic Lindsey ging 10/16/2011 1:00 AM EDT Impressions 10/16/2011 4:45 AM EDT IMPRESSION: There is no evidence of fracture, dislocation or foreign body Narrative 10/16/2011 4:45 AM EDT RIGHT HAND 3 VIEWS EXAM DATE: October 16, 2011 03:45:14 AM HISTORY: -WRIST PAIN Procedure Note Parvin Adames MD - 10/16/2011 RIGHT HAND 3 VIEWS EXAM DATE: October 16, 2011 03:45:14 AM HISTORY: -WRIST PAIN IMPRESSION: There is no evidence of fracture, dislocation or foreignbody us Majo Harrison DO IMG DIAGNOSTIC IMAGING ORDERA BLES Final Result * (ABNORMAL) DRUG SCREEN URINE (FINAL) (08/22/2011 12:45 PM EDT) [facility] Anticonvulsants Absent [facility] Antidepressants Present(A) [facility] Comment: Antidepressants _ Amitriptyline _ Bupropion _ Bupropion Metabolite _ Citalopram _ Citalopram Metabolite (unconfirmed) _ Clomipramine _ Clomipramine Metabolite (unconfirmed) _ Desipramine _ Doxepin _ Doxepin Metabolite (Nordoxepin) _ Fluoxetine _ Fluoxetine Metabolite (Norfluoxetine) _ Imipramine _ Imipramine/Desipramine Metabolites (unconfirmed) _ Mirtazepine and/or Mirtazepine Metabolite (unconfirmed) _ Nefazodone/Trazodone Metabolites (unconfirmed) _ Nortriptyline _ Paroxetine (unconfirmed) x Sertraline _ Sertraline Metabolite (unconfirmed) _ Trazodone (unconfirmed) _ Trimipramine _ Triptyline Metabolites (unconfirmed) _ Venlafaxine _ Venlafaxine Metabolite (unconfirmed) Antihistamines Absent [facility] Cardiac Depressants/Beta Blockers Absent [facility] Barbiturates/Hypnot ics Absent [facility] Opiates/Narcotic Analgesics Present(A) [facility] Comment: Narcotic Analgesics _ Codeine _ Diacetylmorphine and/or 6-Monoacetylmorphine (6-JESUSITA) _ Hydrocodone _ Hydromorphone _ Meperidine _ Meperidine Metabolite (Normeperidine) _ Methadone _ Methadone Metabolite (EDDP) x Morphine x Oxycodone _ Pentazocine Other Analgesics Absent [facility] Stimulants Present(A) [facility] Comment: Stimulants _ Amphetamine _ Benzoylecgonine (Cocaine Metabolite) _ Caffeine _ Cocaine _ Ephedrine _ Methamphetamine _ Methylenedioxyamphetamine (MDA) _ Methylenedioxymethamphetamine (MDMA) x Nicotine _ Nicotine Metabolite (Cotinine) _ Phencyclidine _ Phentermine _ Phenylpropranolamine _ Pseudoephedrine Tranquilizers Present(A) [facility] Comment: Tranquilizers x Benzodiazepine Class _ Carisoprodol x Meprobamate _ Phenothiazine Metabolites (unconfirmed) Miscellaneous Present(A) [facility] Comment: Other Miscellaneous Drugs _ Amantadine (unconfirmed) x Cannabinoid Metabolite _ Clozapine _ Clozapine Metabolite (unconfirmed) _ Erythromycin (unconfirmed) _ Guaifenesin (unconfirmed) _ Metoprolol _ Metoprolol Metabolite (unconfirmed) _ Olanzapine (unconfirmed) _ Quetiapine and/or Quetiapine Metabolite (unconfirmed) _ Triamterene (unconfirmed) _ Trimethoprim (unconfirmed) Final DS Note These drug classes have been screened and/or confirmed by Thin Layer Chromatograp hy/Gas Chromatograp hy/Mass Spectrophoto metry. Unconfirmed screening results are to be used for medical purposes only. [facility] Urine specimen (specimen) 08/22/2011 12:45 PM EDT 08/22/2011 7:58 PM EDT Narrative [facility] - 08/23/2011 4:01 PM EDT Fax to [phone] us Referring Nonstaff URINE ORDERABLES Final Result [facility] [address] [place] [address] * (ABNORMAL) .DRUG SCREEN URINE (PRELIMINARY) (08/22/2011 12:45 PM EDT) Only the most recent of2 resultswithin the time period is included. Cannabinoid Metabolites Present(A) 50 ng/mL [facility] Benzodiazepine Class Present(A) 200 ng/mL [facility] Cocaine Metab Absent 300 ng/mL [facility] Opiates Class Present(A) 300 ng/mL [facility] Barbiturate Class Absent 200 ng/mL [facility] Amphetamine Class Absent 1000 ng/mL [facility] Prelim DS Note These drug screens have been performed using immunoassay. The presence of a drug class indicates presumptive presence of that drug class. Confirmation of the drug class with a final report will follow. [facility] Urine specimen (specimen) 08/22/2011 12:45 PM EDT 08/22/2011 7:58 PM EDT Narrative [facility] - 08/22/2011 10:39 PM EDT Fax to [phone] us Referring Nonstaff URINE ORDERABLES Final Result Performing Organization Address [facility] Co de Phone Number [facility] [address] [place] [address] * (ABNORMAL) CARBAMAZEPINE LEVEL (01/24/2011 9:26 PM EDT) Tegretol 4.0(L) 6.0 - 12.0 mcg/mL [facility] Blood specimen (specimen) UPPER LIMB STRUCTURE / Unknown 01/24/2011 9:26 PM EDT 01/25/2011 8:55 AM EDT us Grant Duarte MD CHEMISTRY ORDERABLES Final Re sult Performing Organization Address [facility] Co de Phone Number [facility] [address] [place] [address] * XR CERVICAL SPINE AP LATERAL ODONTOID AND OBLIQUE (10/10/2010 9:28 PM EDT) Anatomical Region Laterality Modality C-spine Radiographic Lindsey ging 10/10/2010 9:04 PM EDT Impressions 10/10/2010 10:39 PM EDT IMPRESSION: 1. Cervical spondylosis and dextroscoliosis or torticollis. Narrative 10/10/2010 10:39 PM EDT Cervical spine, 5 views, 10/10/2010. INDICATIONS: Torticollis, without antecedent trauma. Five views cervical spine show head tilting toward the left, with resultant dextro scoliosis. There is degenerative change at C5-C6 and C6-C7. There is no fracture identified. No prevertebral soft tissue swelling identified. Prior craniotomy changes are noted. Procedure Note Keshav Stephen - 10/10/2010 Cervical spine, 5 views, 10/10/2010. INDICATIONS: Torticollis, without antecedent trauma. Five views cervical spine show head tilting toward the left, withresultant dextro scoliosis. There is degenerative change at C5-C6 and C6-C7. There is no fractureidentified. No prevertebral soft tissue swelling identified. Prior craniotomy changes are noted. IMPRESSION: 1. Cervical spondylosis and dextroscoliosis or torticollis. Derek Romero MD IMG DIAGNOSTIC IMAGING ORDERA BLES Final Result * ACETAMINOPHEN LEVEL (04/27/2010 8:19 AM EST) Acetaminophen Lvl <10 <=30 mcg/mL [facility] Comment: Toxic Overdose: Acetamin levels > 200 ug/mL 4 hours after ingestion - Hepatic necrosis is probable. Acetamin levels > 50 ug/mL 12 hours after ingestion - Hepatic necrosis is probable. Blood specimen (specimen) UPPER LIMB STRUCTURE / Unknown 04/27/2010 8:19 AM EST 04/27/2010 10:06 AM EST Derek Romero MD CHEMISTRY ORDERABLES Final Re sult [facility] [address] [place] [address] * (ABNORMAL) DRUG SCREEN RAPID (01/12/2010 7:26 PM EDT) Tricyclic Rapid Absent [facility] Barbiturate Rapid Absent [facility] Methadone Rapid Absent [facility] Benzodiazepines Rapid Present(A) [facility] Cannabinoid Rapid Present(A) [facility] Opiate Rapid Present(A) [facility] Amphetamine Rapid Absent [facility] Cocaine Rapid Absent [facility] Propoxyphene Rapid Present(A) [facility] Methamphetamine Rapid Absent [facility] Urine specimen (specimen) 01/12/2010 7:26 PM EDT 01/12/2010 7:26 PM EDT us Ari Howard MD URINE ORDERABLES Final Resul t [facility] [address] [place] [address] * CT HEAD W/O CONTRAST (07/26/2007 12:00 AM EST) Anatomical Region Laterality Modality Other 07/26/2007 07/26/2007 Narrative 07/26/2007 12:00 AM EST VERIFIED [facility] Reason: pn Dict.Staff: TOÑITO ALEJO [id number] Verified By: VENKAT MCCLURE Herbert: 07/27/07 8:27 am Exams: CT-HEAD W/O CONTRAST CT BRAIN WITHOUT CONTRAST HISTORY: PRIOR ANEURYSM CLIPPING. LEFT SIDED NUMBNESS There is no evidence of hemorrhage, mass or infarct. 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 No change from 02-12-03. Evidence of prior left frontotemporal craniotomy. IMPRESSION: NO ACUTE FINDING. GS/pp DICTATED ON 07-26-07 AT 1752 HOURS end of result Procedure Note Unknown, U - 09/16/2009 VERIFIED [facility] Reason: pn Dict.Staff: TOÑITO ALEJO [id number] Verified By: VENKAT MCCLURE Herbert: 07/27/07 8:27 am Exams: CT-HEAD W/O CONTRAST CT BRAIN WITHOUT CONTRAST HISTORY: PRIOR ANEURYSM CLIPPING. LEFT SIDED NUMBNESS There is no evidence of hemorrhage, mass or infarct. 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 No change from 02-12-03. Evidence of prior left frontotemporal craniotomy. IMPRESSION: NO ACUTE FINDING. GS/pp DICTATED ON 07-26-07 AT 1752 HOURS end of result us U Unknown IMG [facility] RAD HISTORICAL Final Result * XR CHEST PA & LAT (07/26/2007 12:00 AM EST) Anatomical Region Laterality Modality Other 07/26/2007 07/26/2007 Narrative 07/26/2007 12:00 AM EST VERIFIED [facility] Reason: pn Dict.Staff: VENKAT MCCLURE [id number] Verified By: VENKAT MCCLURE Herbert: 07/27/07 9:50 am Exams: DIAG-CHEST PA & LATERAL PA AND LATERAL CHEST 07-26-07: HISTORY: PAIN, LEFT SIDED NUMBNESS FINDINGS: Heart size is within normal limits. The lungs are free of acute infiltrate, pleural effusion or pneumothorax. IMPRESSION: NO ACUTE DISEASE. A KAMI/mimi DICTATED ON 07-27-07 AT 076 HOURS end of result Procedure Note Unknown, U - 09/16/2009 VERIFIED [facility] Reason: pn Dict.Staff: VENKAT MCCLURE [id number] Verified By: VENKAT MCCLURE Herbert: 07/27/07 9:50 am Exams: DIAG-CHEST PA & LATERAL PA AND LATERAL CHEST 07-26-07: HISTORY: PAIN, LEFT SIDED NUMBNESS FINDINGS: Heart size is within normal limits. The lungs are free of acute infiltrate, pleural effusion or pneumothorax. IMPRESSION: NO ACUTE DISEASE. A MCCLURE/pp DICTATED ON 07-27-07 AT 076 HOURS end of result us U Unknown [facility] RAD HISTORICAL Final Result * XR CHEST PA & LATERAL (04/03/2007 2:03 PM EDT) Only the most recent of2 resultswithin the time period is included. Anatomical Region Laterality Modality Other 04/03/2007 2:03 PM EDT Narrative 04/03/2007 2:20 PM EDT PA and lateral chest, 04/03/2007, 12-52 p.m. Comparison 06/14/2005. History- Chest swelling. 2 views. The heart and lungs are within normal limits. Impression- Normal chest. Diversity Manager- NETTA MOSES Reading Radiologist- KOBE SCHWARTZ MD Released Date Time- 04/03/07 1620 Procedure Note Kobe Schwartz - 08/10/2009 PA and lateral chest, 04/03/2007, 12-52 p.m. Comparison 06/14/2005. History- Chest swelling. 2 views. The heart and lungs are within normal limits. Impression- Normal chest. Diversity Manager- NETTA Valles Radiologist- KOBE SCHWARTZ MD Released Date Time- 04/03/07 1620 Patrick Torres DO [facility] HISTORICAL Fi nal Result * XR FOOT 2 VIEWS (01/24/2007 10:10 AM EDT) Anatomical Region Laterality Modality Other 01/24/2007 10:1 0 AM EDT Narrative 01/24/2007 11:36 AM EDT Left foot and toes, two views, 01/24/07- Indications- Pain, bunion. Two views of left foot and toes show hallux valgus with bunion formation. No other abnormality noted. Diversity Manager- MIRIAM CAMARENA Reading Radiologist- KESHAV STEPHEN MD Released Date Time- 01/24/07 1456 Procedure Note Keshav Stephen - 08/10/2009 Left foot and toes, two views, 8/24/07- Indications- Pain, bunion. Two views of left foot and toes show hallux valgus with bunion formation. No other abnormality noted. Diversity Manager- MIRIAM CAMARENA Reading Radiologist- KESHAV STEPHEN MD Released Date Time- 01/24/07 1456 us Andrei Gaston [facility] Final Result * MM MAMMO DIAG BILATERAL GC (01/15/2007 9:05 AM EDT) Anatomical Region Laterality Modality Other 01/15/2007 9:05 AM EDT Narrative 01/15/2007 3:22 PM EDT Procedure-GC MM MAMMO DIAG BILATERAL GC MM Mammo Diag Bilateral Bilateral CC and MLO view(s) were taken. Prior study comparison- January 16, 2006, bilateral mammogram diagnostic. November 09, 2004, left breast unilateral diagnostic study, performed at [facility]. The breast tissue is heterogeneously dense. This may lower the sensitivity of mammography. There are two round calcifications in the left breast superior position seen only on the MLO view, stable since November 2004. No significant changes when compared with prior studies. IMPRESSION- Benign finding ([id number]-3) RECOMMENDATION- Routine screening mammogram in 1 year. * The patient with a palpable abnormality, unexplained by breast imaging, should be managed on clinical basis by the attending physician. * Breast imaging has a false negative rate of 15%. * The patient was notified by mail of the results of this examination. The mammogram was reviewed by a Radiologist and CAD. Diversity Manager- DENNY Valles Radiologist- VENKAT MCCLURE Released Date Time- 01/15/07 1558 Procedure Note Venkat Mcclure - 08/10/2009 Procedure-GC MM MAMMO DIAG BILATERAL GC MM Mammo Diag Bilateral Bilateral CC and MLO view(s) were taken. Prior study comparison- January 16, 2006, bilateral mammogram diagnostic. November 09, 2004, left breast unilateral diagnostic study, performed at [facility]. The breast tissue is heterogeneously dense. This may lower the sensitivity of mammography. There are two round calcifications in the left breast superior position seen only on the MLO view, stable since November 2004. No significant changes when compared with prior studies. IMPRESSION- Benign finding ([id number]) RECOMMENDATION- Routine screening mammogram in 1 year. * The patient with a palpable abnormality, unexplained by breast imaging, should be managed on clinical basis by the attending physician. * Breast imaging has a false negative rate of 15%. * The patient was notified by mail of the results of this examination. The mammogram was reviewed by a Radiologist and CAD. Diversity Manager- DENNY Valles Radiologist- VENKAT MCCLURE Released Date Time- 01/15/07 1558 us Kailash Diaz MD [facility] RAD HISTORICAL F inal Result * CT CHEST EXPERIMENTAL BOX TESTER (07/22/2006 9:40 AM EST) Anatomical Region Laterality Modality Other 07/22/2006 9:40 AM EST Narrative 07/22/2006 12:[address] without contrast and high resolution images. 07/22/2006. Comparison- No prior CTs. Indication- 41-year-old female with mass in my lung. Technical factors- High-resolution images at 1 mm collimation and 2 cm increments during inspiration and expiration in supine position were obtained following administration of 100 mL IV Optiray-320. 5 mm contiguous axial images obtained from lung apices through the diaphragm afterwards, although contrast is limited to urinary tract excretion. Findings- Trachea is normal. In the posterior medial aspect right lower lobe a cavitary lesion measuring 3.2 x 2.5 cm includes irregularly thickened and enhancing truong. Some strandy opacities are present extending from posterior upper hilum towards the upper margin of the cavitary lesion. On high resolution images, a few thin but irregular air bronchograms are seen among the strandy densities without bronchiectasis. Thin irregular band of scarring is in anteromedial right lower lobe at level of the lesion. No interstitial or fissure thickening. No significant air trapping between inspiration and expiration. Mixed attenuation residual thymus tissue is in anterosuperior mediastinum. No mediastinal or hilar adenopathy. Included portions of upper abdomen notable for a 1.2 cm mildly irregular low attenuation left anterior mid renal cyst. Impression- 1. 3.2 x 2.5 cm irregular thickwalled cavitary lesion posterior medial right lower lobe associated with strandy airspace disease extending to posterior right hilum. It is an isolated defect and likely represent sequelae from prior infectious/inflammatory process, including atypical pneumonias. Review of PA and lateral chest radiographs 06/14/2005 suggest the lesion may have been present at that time although not well-defined. Followup CT imaging in 6 months could be obtained. 2. No thoracic adenopathy. Diversity Manager- DORI SILVER MD. Reading Radiologist- DORI SILVER MD. Released Date Time- 07/22/06 1407 Procedure Note Dori Silver - 08/10/[address] without contrast and high resolution images. 07/22/2006. Comparison- No prior CTs. Indication- 41-year-old female with mass in my lung. Technical factors- High-resolution images at 1 mm collimation and 2 cm increments during inspiration and expiration in supine position were obtained following administration of 100 mL IV Optiray-320. 5 mm contiguous axial images obtained from lung apices through the diaphragm afterwards, although contrast is limited to urinary tract excretion. Findings- Trachea is normal. In the posterior medial aspect right lower lobe a cavitary lesion measuring 3.2 x 2.5 cm includes irregularly thickened and enhancing truong. Some strandy opacities are present extending from posterior upper hilum towards the upper margin of the cavitary lesion. On high resolution images, a few thin but irregular air bronchograms are seen among the strandy densities without bronchiectasis. Thin irregular band of scarring is in anteromedial right lower lobe at level of the lesion. No interstitial or fissure thickening. No significant air trapping between inspiration and expiration. Mixed attenuation residual thymus tissue is in anterosuperior mediastinum. No mediastinal or hilar adenopathy. Included portions of upper abdomen notable for a 1.2 cm mildly irregular low attenuation left anterior mid renal cyst. Impression- 1. 3.2 x 2.5 cm irregular thickwalled cavitary lesion posterior medial right lower lobe associated with strandy airspace disease extending to posterior right hilum. It is an isolated defect and likely represent sequelae from prior infectious/inflammatory process, including atypical pneumonias. Review of PA and lateral chest radiographs 06/14/2005 suggest the lesion may have been present at that time although not well-defined. Followup CT imaging in 6 months could be obtained. 2. No thoracic adenopathy. Diversity Manager- DORI SILVER MD. Reading Radiologist- DORI SILVER MD. Released Date Time- 07/22/06 1407 Kailash Diaz MD [facility] RAD HISTORICAL F inal Result * CT PELVIS W CONTRAST (07/02/2006 12:00 AM EST) Anatomical Region Laterality Modality Other 07/02/2006 07/02/2006 Narrative 07/02/2006 12:00 AM EST VERIFIED [facility] Reason: 593.2 RENAL STENTS/CT ABD/PEL W/C MUL PH Dict.Staff: TEE MCCLURE Verified By: PJ CASAS Herbert: 07/02/06 9:51 pm Exams: CT-ABDOMEN W/WO CONT CT-PELVIS WITH CONTRAST 07-02-[address] ABDOMEN AND CONTRAST ENHANCED CT OF THE PELVIS: CLINICAL HISTORY: Evaluate renal mass. FINDINGS: Non-contrast imaging performed through the abdomen. Subsequently, 100 ml Isovue 370 injected and imaging through the abdomen and pelvis performed immediate and delayed. Oral contrast also given. No comparison imaging studies available. COMBINED CT ABDOMEN: In the posterior medial right lower lobe there is a cavitary/cystic lesion measuring 3.4 x 2.2 cm. There is a small amount of fluid in the dependent portion of this lesion. Lung bases are otherwise clear. The liver, spleen, and pancreas are normal. The gallbladder is unremarkable. The adrenals are normal. The right kidney is normal. There is a well circumscribed non-enhancing fluid density mass in the mid-left kidney measuring 1.3 cm in diameter. A tiny 5 mm well circumscribed lesion is seen in the inferior pole. Both lesions are felt to represent cysts. No solid mass. No hydronephrosis or evidence of obstruction. No ascites. A few nonenlarged retroperitoneal lymph nodes are noted. CT PELVIS: There is a prominent amount of stool in the colon especially the right and transverse colon. The uterus is absent. No adnexal mass. Bladder is unremarkable. There are pelvic calcifications which are likely phleboliths. There is no pelvic fluid or adenopathy. IMPRESSION: 1. TWO LEFT RENAL LESIONS ARE SIMPLE CYSTS BY CT. THESE REQUIRE NO ADDITIONAL IMAGING FOLLOW-UP. 2. CYSTIC/CAVITARY LESION POSTEROMEDIAL RIGHT LOWER LOBE WITH A SMALL AMOUNT OF DEPENDENT FLUID. THIS MAY BE INFECTIOUS/INFLAMMATORY OR LESS LIKELY NEOPLASTIC. I WOULD RECOMMEND COMPLETE CHEST CT FOR FURTHER EVALUATION. 3. EXTENSIVE COLONIC STOOL SUGGESTING DIAGNOSIS OF CONSTIPATION. CLINICAL CORRELATION INDICATED. KAMI/LILIAN end of result Procedure Note Unknown, U - 09/15/2009 VERIFIED [facility] Reason: 593.2 RENAL STENTS/CT ABD/PEL W/C MUL PH Dict.Staff: TEE MCCLURE Verified By: PJ CASAS Herbert: 07/02/06 9:51 pm Exams: CT-ABDOMEN W/WO CONT CT-PELVIS WITH CONTRAST 07-02-[address] ABDOMEN AND CONTRAST ENHANCED CT OF THE PELVIS: CLINICAL HISTORY: Evaluate renal mass. FINDINGS: Non-contrast imaging performed through the abdomen. Subsequently, 100 ml Isovue 370 injected and imaging through the abdomen and pelvis performed immediate and delayed. Oral contrast also given. No comparison imaging studies available. COMBINED CT ABDOMEN: In the posterior medial right lower lobe there is a cavitary/cystic lesion measuring 3.4 x 2.2 cm. There is a small amount of fluid in the dependent portion of this lesion. Lung bases are otherwise clear. The liver, spleen, and pancreas are normal. The gallbladder is unremarkable. The adrenals are normal. The right kidney is normal. There is a well circumscribed non-enhancing fluid density mass in the mid-left kidney measuring 1.3 cm in diameter. A tiny 5 mm well circumscribed lesion is seen in the inferior pole. Both lesions are felt to represent cysts. No solid mass. No hydronephrosis or evidence of obstruction. No ascites. A few nonenlarged retroperitoneal lymph nodes are noted. CT PELVIS: There is a prominent amount of stool in the colon especially the right and transverse colon. The uterus is absent. No adnexal mass. Bladder is unremarkable. There are pelvic calcifications which are likely phleboliths. There is no pelvic fluid or adenopathy. IMPRESSION: 1. TWO LEFT RENAL LESIONS ARE SIMPLE CYSTS BY CT. THESE REQUIRE NO ADDITIONAL IMAGING FOLLOW-UP. 2. CYSTIC/CAVITARY LESION POSTEROMEDIAL RIGHT LOWER LOBE WITH A SMALL AMOUNT OF DEPENDENT FLUID. THIS MAY BE INFECTIOUS/INFLAMMATORY OR LESS LIKELY NEOPLASTIC. I WOULD RECOMMEND COMPLETE CHEST CT FOR FURTHER EVALUATION. 3. EXTENSIVE COLONIC STOOL SUGGESTING DIAGNOSIS OF CONSTIPATION. CLINICAL CORRELATION INDICATED. KAMI/LILIAN end of result us U Unknown [facility] RAD HISTORICAL Final Result * CT MAXILLOFACIAL WITH CONTRAST (07/02/2006 12:00 AM EST) Anatomical Region Laterality Modality Other 07/02/2006 07/02/2006 Narrative 07/02/2006 12:00 AM EST VERIFIED [facility] Reason: SINUS CYST / CT SINUS TF CT ABD/PEL Dict.Staff: PJ CASAS Verified By: VIVIAN BOLDEN Herbert: 07/03/06 4:18 pm Exams: CT-MAXILLOFACIAL WITH CONTRAST 07-02-06 CT PARANASAL SINUSES, NONCONTRAST: History: Evaluate sinus cyst. Axial imaging is done with coronal reconstructions. No additional contrast medium was given. There is IV contrast from the abdominal CT of the same date. There is a 2.0 cm round soft tissue attenuation lesion in the floor of the left maxillary sinus consistent with mucus retention cyst. The other sinuses are clear. The frontal sinuses are under developed (normal variant). Ostiomeatal units appear normal. Middle turbinates bilaterally have a paradoxical configuration. There is slight deviation of the nasal septum to the left. 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 CONCLUSION: 2cm soft tissue attenuation lesion in floor of left maxillary sinus consistent with mucus retention cyst. Slightly deviated nasal septum. Normal appearing ostiomeatal units. Paradoxical configuration of middle turbinates. Prior intracranial surgery. AUGUSTO:ps end of result Procedure Note Unknown, U - 09/15/2009 VERIFIED [facility] Reason: SINUS CYST / CT SINUS TF CT ABD/PEL Dict.Staff: PJ CASAS Verified By: VIVIAN BOLDEN Herbert: 07/03/06 4:18 pm Exams: CT-MAXILLOFACIAL WITH CONTRAST 07-02-06 CT PARANASAL SINUSES, NONCONTRAST: History: Evaluate sinus cyst. Axial imaging is done with coronal reconstructions. No additional contrast medium was given. There is IV contrast from the abdominal CT of the same date. There is a 2.0 cm round soft tissue attenuation lesion in the floor of the left maxillary sinus consistent with mucus retention cyst. The other sinuses are clear. The frontal sinuses are under developed (normal variant). Ostiomeatal units appear normal. Middle turbinates bilaterally have a paradoxical configuration. There is slight deviation of the nasal septum to the left. 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 CONCLUSION: 2cm soft tissue attenuation lesion in floor of left maxillary sinus consistent with mucus retention cyst. Slightly deviated nasal septum. Normal appearing ostiomeatal units. Paradoxical configuration of middle turbinates. Prior intracranial surgery. AUGUSTO:ps end of result us U Unknown [facility] RAD HISTORICAL Final Result * CT ABDOMEN W&W/O CONTRAST (07/02/2006 12:00 AM EST) Anatomical Region Laterality Modality Other 07/02/2006 07/02/2006 Narrative 07/02/2006 12:00 AM EST VERIFIED [facility] Reason: 593.2 RENAL STENTS/CT ABD/PEL W/C MUL PH Dict.Staff: TEE MCCLURE Verified By: PJ CASAS Herbert: 07/02/06 9:51 pm Exams: CT-ABDOMEN W/WO CONT CT-PELVIS WITH CONTRAST 07-02-[address] ABDOMEN AND CONTRAST ENHANCED CT OF THE PELVIS: CLINICAL HISTORY: Evaluate renal mass. FINDINGS: Non-contrast imaging performed through the abdomen. Subsequently, 100 ml Isovue 370 injected and imaging through the abdomen and pelvis performed immediate and delayed. Oral contrast also given. No comparison imaging studies available. COMBINED CT ABDOMEN: In the posterior medial right lower lobe there is a cavitary/cystic lesion measuring 3.4 x 2.2 cm. There is a small amount of fluid in the dependent portion of this lesion. Lung bases are otherwise clear. The liver, spleen, and pancreas are normal. The gallbladder is unremarkable. The adrenals are normal. The right kidney is normal. There is a well circumscribed non-enhancing fluid density mass in the mid-left kidney measuring 1.3 cm in diameter. A tiny 5 mm well circumscribed lesion is seen in the inferior pole. Both lesions are felt to represent cysts. No solid mass. No hydronephrosis or evidence of obstruction. No ascites. A few nonenlarged retroperitoneal lymph nodes are noted. CT PELVIS: There is a prominent amount of stool in the colon especially the right and transverse colon. The uterus is absent. No adnexal mass. Bladder is unremarkable. There are pelvic calcifications which are likely phleboliths. There is no pelvic fluid or adenopathy. IMPRESSION: 1. TWO LEFT RENAL LESIONS ARE SIMPLE CYSTS BY CT. THESE REQUIRE NO ADDITIONAL IMAGING FOLLOW-UP. 2. CYSTIC/CAVITARY LESION POSTEROMEDIAL RIGHT LOWER LOBE WITH A SMALL AMOUNT OF DEPENDENT FLUID. THIS MAY BE INFECTIOUS/INFLAMMATORY OR LESS LIKELY NEOPLASTIC. I WOULD RECOMMEND COMPLETE CHEST CT FOR FURTHER EVALUATION. 3. EXTENSIVE COLONIC STOOL SUGGESTING DIAGNOSIS OF CONSTIPATION. CLINICAL CORRELATION INDICATED. KAMI/ end of result Procedure Note Unknown, U - 09/15/2009 VERIFIED [facility] Reason: 593.2 RENAL STENTS/CT ABD/PEL W/C MUL PH Dict.Staff: TEE MCCLURE Verified By: PJ CASAS Herbert: 07/02/06 9:51 pm Exams: CT-ABDOMEN W/WO CONT CT-PELVIS WITH CONTRAST 07-02-[address] ABDOMEN AND CONTRAST ENHANCED CT OF THE PELVIS: CLINICAL HISTORY: Evaluate renal mass. FINDINGS: Non-contrast imaging performed through the abdomen. Subsequently, 100 ml Isovue 370 injected and imaging through the abdomen and pelvis performed immediate and delayed. Oral contrast also given. No comparison imaging studies available. COMBINED CT ABDOMEN: In the posterior medial right lower lobe there is a cavitary/cystic lesion measuring 3.4 x 2.2 cm. There is a small amount of fluid in the dependent portion of this lesion. Lung bases are otherwise clear. The liver, spleen, and pancreas are normal. The gallbladder is unremarkable. The adrenals are normal. The right kidney is normal. There is a well circumscribed non-enhancing fluid density mass in the mid-left kidney measuring 1.3 cm in diameter. A tiny 5 mm well circumscribed lesion is seen in the inferior pole. Both lesions are felt to represent cysts. No solid mass. No hydronephrosis or evidence of obstruction. No ascites. A few nonenlarged retroperitoneal lymph nodes are noted. CT PELVIS: There is a prominent amount of stool in the colon especially the right and transverse colon. The uterus is absent. No adnexal mass. Bladder is unremarkable. There are pelvic calcifications which are likely phleboliths. There is no pelvic fluid or adenopathy. IMPRESSION: 1. TWO LEFT RENAL LESIONS ARE SIMPLE CYSTS BY CT. THESE REQUIRE NO ADDITIONAL IMAGING FOLLOW-UP. 2. CYSTIC/CAVITARY LESION POSTEROMEDIAL RIGHT LOWER LOBE WITH A SMALL AMOUNT OF DEPENDENT FLUID. THIS MAY BE INFECTIOUS/INFLAMMATORY OR LESS LIKELY NEOPLASTIC. I WOULD RECOMMEND COMPLETE CHEST CT FOR FURTHER EVALUATION. 3. EXTENSIVE COLONIC STOOL SUGGESTING DIAGNOSIS OF CONSTIPATION. CLINICAL CORRELATION INDICATED. KAMI/ end of result us U Unknown [facility] RAD HISTORICAL Final Result * CT HEAD EXPERIMENTAL BOX TESTER (04/03/2006 9:15 AM EST) Only the most recent of2 resultswithin the time period is included. Anatomical Region Laterality Modality Other 04/03/2006 9:15 AM EST Narrative 04/03/2006 9:[address] without contrast, 04/03/2006 History- 784.0, headache. Findings- Noncontrast head CT was performed. Comparison is made with prior study dated 06/14/05. The ventricular system is within normal limits. Minimal cerebral and cerebellar atrophy is identified. The patient is status post left fronto-temporal craniotomy. There is metallic streak artifact from an aneurysm clip in the region of the left aspect of the suprasellar cistern, which obscures some soft tissue detail in this region. No definite areas of abnormal brain attenuation are identified. No mass-effect, midline shift, or extra-axial collection is seen. No acute bleed is seen. The visualized paranasal sinuses are clear. 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 No acute intracranial findings. Minimal atrophy. No significant interval change from prior head CT of 06/14/2005. Diversity Manager- OSWALD WATSON Reading Radiologist- THEO GUERRERO MD Released Date Time- 04/03/06 1321 Procedure Note Theo Guerrero - 08/10/[address] without contrast, 04/03/2006 History- 784.0, headache. Findings- Noncontrast head CT was performed. Comparison is made with prior study dated 06/14/05. The ventricular system is within normal limits. Minimal cerebral and cerebellar atrophy is identified. The patient is status post left fronto-temporal craniotomy. There is metallic streak artifact from an aneurysm clip in the region of the left aspect of the suprasellar cistern, which obscures some soft tissue detail in this region. No definite areas of abnormal brain attenuation are identified. No mass-effect, midline shift, or extra-axial collection is seen. No acute bleed is seen. The visualized paranasal sinuses are clear. 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 No acute intracranial findings. Minimal atrophy. No significant interval change from prior head CT of 06/14/2005. Diversity Manager- OSWALD WATSON Reading Radiologist- THEO GUERRERO MD Released Date Time- 04/03/06 1321 Patrick Tuckerdominik DO [facility] RAD HISTORICAL Fi nal Result * MM MAMMO DIAG BILATERAL (01/16/2006 10:05 AM EDT) Anatomical Region Laterality Modality Other 01/16/2006 10:0 5 AM EDT Narrative 01/17/2006 10:07 AM EDT Procedure-MM MAMMO DIAG BILATERAL Mammogram Diagnostic Bilateral CC and MLO view(s) were taken. BILATERAL DIAGNOSTIC MAMMOGRAPHY, 01-16-06- 1. The patient is asymptomatic. 2. There is average breast density. No masses are seen. 3. There are two small round calcifications projected over the deep superior portion of left breast and seen only in MLO projection. They are unchanged from the study of November 2004. IMPRESSION- Benign finding (PWT-Oueqzlhl-9) Benign finding (HVW-Feincvfs-5) in both breasts 12 month follow-up diagnostic mammography is recommended. RECOMMENDATION- Follow-up diagnostic mammogram in 1 year. * The patient with a palpable abnormality, unexplained by breast imaging, should be managed on clinical basis by the attending physician. * Breast imaging has a false negative rate of 15%. * The patient was notified by mail of the results of this examination. Vidal Valles RadiologistMarge CASAS MD Released Date Time01/17/06 1426 Procedure Note Augusto Pj D - 08/10/2009 Procedure-MM MAMMO DIAG BILATERAL Mammogram Diagnostic Bilateral CC and MLO view(s) were taken. BILATERAL DIAGNOSTIC MAMMOGRAPHY, 01-16-06- 1. The patient is asymptomatic. 2. There is average breast density. No masses are seen. 3. There are two small round calcifications projected over the deep superior portion of left breast and seen only in MLO projection. They are unchanged from the study of November 2004. IMPRESSION- Benign finding (CRY-Omlmqtbh-2) Benign finding (UJL-Jshbsztz-8) in both breasts 12 month follow-up diagnostic mammography is recommended. RECOMMENDATION- Follow-up diagnostic mammogram in 1 year. * The patient with a palpable abnormality, unexplained by breast imaging, should be managed on clinical basis by the attending physician. * Breast imaging has a false negative rate of 15%. * The patient was notified by mail of the results of this examination. Vidal Valles RadiologistMarge CASAS MD Released Date Time01/17/06 1426 Result [facility] RAD HISTORICAL Final Result * MM MAMMO DIAG UNILATATERAL (06/20/2005 9:25 AM EST) Anatomical Region Laterality Modality Other 06/20/2005 9:25 AM EST Narrative 06/20/2005 5:45 PM EST Procedure-MM MAMMO DIAG UNILATATERAL Mammo Diag Uni CC and MLO view(s) were taken of the left breast. Prior study comparison- November 09, 2004, left breast unilateral diagnostic study. There are scattered fibroglandular densities. The previously seen calcifications are not seen today in the left breast axilla position. Positioning limited by her painful ribs but the same area was thought to be included. IMPRESSION- Probably benign (TJC-Ncerwlcy-3) RECOMMENDATION- Follow-up diagnostic mammogram of both breasts in 6 months as a conservative measure. * The patient with a palpable abnormality, unexplained by breast imaging, should be managed on clinical basis by the attending physician. * Breast imaging has a false negative rate of 15%. * The patient was notified by mail of the results of this examination. The mammogram was reviewed by a Radiologist and CAD. Diversity Manager- DENNY HERNANDEZ Reading Radiologist- PARVIN ADAMES MD Released Date Time- 06/20/051947 Procedure Note Parvin Adames - 08/09/2009 Procedure-MM MAMMO DIAG UNILATATERAL Mammo Diag Uni CC and MLO view(s) were taken of the left breast. Prior study comparison- November 09, 2004, left breast unilateral diagnostic study. There are scattered fibroglandular densities. The previously seen calcifications are not seen today in the left breast axilla position. Positioning limited by her painful ribs but the same area was thought to be included. IMPRESSION- Probably benign (EOW-Xbdplesw-1) RECOMMENDATION- Follow-up diagnostic mammogram of both breasts in 6 months as a conservative measure. * The patient with a palpable abnormality, unexplained by breast imaging, should be managed on clinical basis by the attending physician. * Breast imaging has a false negative rate of 15%. * The patient was notified by mail of the results of this examination. The mammogram was reviewed by a Radiologist and CAD. Diversity Manager- DENNY HERNANDEZ Reading Radiologist- PARVIN ADAMES MD Released Date Time- 06/20/051947 Graph Story [facility] RAD HISTORICAL Final Result * CT CERVICAL SPINE W/O CONTRAST (06/14/2005 7:47 PM EST) Anatomical Region Laterality Modality Other 06/14/2005 7:47 PM EST Narrative 06/15/2005 7:[address] cervical spine. History- Fell from horse^ back, head, and neck pain. The study includes both axilla images and also coronal and sagittal reconstructed images. No fracture is seen. Mild degenerative changes are noted. Axial images were obtained from the level of the skull base to the superior aspect of the thorax. Opinion- No fracture. This reading is in agreement with the preliminary reading, which was rendered by the on-call radiologist. Diversity Manager- DENNY GURROLA Reading Radiologist- EKSHAV PULLIAM MD Released Date Time- 06/15/05 0911 Procedure Note Keshav Pulliam W - 08/09/[address] cervical spine. History- Fell from horse^ back, head, and neck pain. The study includes both axilla images and also coronal and sagittal reconstructed images. No fracture is seen. Mild degenerative changes are noted. Axial images were obtained from the level of the skull base to the superior aspect of the thorax. Opinion- No fracture. This reading is in agreement with the preliminary reading, which was rendered by the on-call radiologist. Diversity Manager- DENNY GURROLA Reading Radiologist- KESHAV PULLIAM MD Released Date Time- 06/15/05910 us Ari Howard MD [facility] RAD HISTORICAL Final Result * MM MAMMO, DIAG UNILATERAL (11/09/2004 12:48 PM EDT) Anatomical Region Laterality Modality Other 11/09/2004 12:4 8 PM EDT Narrative 11/09/2004 6:20 PM EDT Procedure-WW MAMMO, DIAG UNILATERAL Unilateral Diagnostic Study CC and MLO view(s) were taken of the left breast. There are 1-5 benign appearing grouped calcifications in the left breast axilla position. IMPRESSION- Probably benign (LWZ-Rzhneuex-3) RECOMMENDATION- Follow-up diagnostic mammogram of the left breast in 6 months. * The patient with a palpable abnormality, unexplained by breast imaging, should be managed on clinical basis by the attending physician. * Breast imaging has a false negative rate of 15%. * The patient was notified by mail of the results of this examination. The mammogram was reviewed by a Radiologist and CAD. Diversity Manager- DENNY HERNANDEZ Reading Radiologist- PJ CASAS MD Releasing Radiologist- DUSTIN LEOS MD Released Date Time- 11/09/04 1820 Procedure Note Pj Casas - 08/09/2009 Procedure-WW MAMMO, DIAG UNILATERAL Unilateral Diagnostic Study CC and MLO view(s) were taken of the left breast. There are 1-5 benign appearing grouped calcifications in the left breast axilla position. IMPRESSION- Probably benign (NYL-Rttufsmf-4) RECOMMENDATION- Follow-up diagnostic mammogram of the left breast in 6 months. * The patient with a palpable abnormality, unexplained by breast imaging, should be managed on clinical basis by the attending physician. * Breast imaging has a false negative rate of 15%. * The patient was notified by mail of the results of this examination. The mammogram was reviewed by a Radiologist and CAD. Diversity Manager- DENNY HERNANDEZ Reading Radiologist- PJ CASAS MD Releasing Radiologist- DUSTIN LEOS MD Released Date Time- 11/09/04 1820 Kailash Diaz MD [facility] RAD HISTORICAL F inal Result * MM MAMMO SCREEN W/CAD PANEL (11/01/2004 2:10 PM EDT) Anatomical Region Laterality Modality Other 11/01/2004 2:10 PM EDT Narrative 11/02/2004 5:59 PM EDT Procedure-MV MAMMO SCREEN W/CAD PANEL Mobile Screening Mammogram Bilateral CC and MLO view(s) were taken. Prior study comparison- May 01, 2001, bilateral screening mammogram. There are scattered fibroglandular densities. There are benign appearing round calcifications in the axillary tail of the left breast. IMPRESSION- Incomplete-need additional imaging evaluation (TTL-Rojbzpex-1) RECOMMENDATION- Special view mammogram of the left breast. * The patient with a palpable abnormality, unexplained by breast imaging, should be managed on clinical basis by the attending physician. * Breast imaging has a false negative rate of 15%. * The patient was notified by mail of the results of this examination. The mammogram was reviewed by a Radiologist and CAD. Diversity Manager- VIKTORIYA MCCLURE Reading Radiologist- ROSALBA NAJERA MD Releasing Radiologist- KESHAV STEPHEN MD Released Date Time- 11/02/04 175 Procedure Note Rosalba Najera S - 08/09/2009 Procedure-MV MAMMO SCREEN W/CAD PANEL Mobile Screening Mammogram Bilateral CC and MLO view(s) were taken. Prior study comparison- May 01, 2001, bilateral screening mammogram. There are scattered fibroglandular densities. There are benign appearing round calcifications in the axillary tail of the left breast. IMPRESSION- Incomplete-need additional imaging evaluation (MJX-Aflzfohs-1) RECOMMENDATION- Special view mammogram of the left breast. * The patient with a palpable abnormality, unexplained by breast imaging, should be managed on clinical basis by the attending physician. * Breast imaging has a false negative rate of 15%. * The patient was notified by mail of the results of this examination. The mammogram was reviewed by a Radiologist and CAD. Diversity Manager- VIKTORIYA Valles Radiologist- ROSALBA NAJERA MD Releasing Radiologist- KESHAV STEPHEN MD Released Date Time- 11/02/041758 Kailash Diaz MD [facility] HISTORICAL F inal Result Visit Diagnoses Diagnosis Start Date Headache(784.0) Headache 02/05/2010 History of Migraine headache Migraine, unspecified, without mention of intractable migraine without mention of status migrainosus 02/05/2010 Nausea with vomiting 02/05/2010 Encounter for long-term (current) use of other medications 02/08/2010 Otitis externa Infective otitis externa, unspecified 02/08/2010 Wrist pain Pain in joint, forearm 02/08/2010 Edema 02/08/2010 Otitis externa Infective otitis externa, unspecified 02/21/2010 Perforated tympanic membrane Perforation of tympanic membrane, unspecified 02/21/2010 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 Anxiety Anxiety state, unspecified 04/27/2010 Headache(784.0) Headache 05/13/2010 Headache(784.0) Headache 05/13/2010 Other chronic pain 05/13/2010 Shortness of breath 05/13/2010 Nausea with vomiting 05/13/2010 Headache(784.0) Headache 05/16/2010 Chronic pain Other chronic pain 05/16/2010 Migraine headache Migraine, unspecified, without mention of intractable migraine without mention of status migrainosus 05/21/2010 Other chronic pain 05/21/2010 Sinusitis Unspecified sinusitis (chronic) 07/11/2010 Other and unspecified hyperlipidemia 10/03/2010 Unspecified hypothyroidism 10/03/2010 Encounter for long-term (current) use of other medications 10/03/2010 Migraine Migraine, unspecified, without mention of intractable migraine without mention of status migrainosus 10/10/2010 Cervical strain, acute Sprain of neck 10/10/2010 Torticollis, acute Torticollis, unspecified 10/10/2010 Headache(784.0) Headache 10/10/2010 Hand pain Pain in limb 11/22/2010 History of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 recurrence not specified, unspecified location 07/08/2016 Other migraine without status migrainosus, not intractable 07/08/2016 Right arm weakness Other musculoskeletal symptoms referable to limbs 07/15/2016 Arm paresthesia, right Disturbance of skin sensation 07/15/2016 Chest pain, atypical Other chest pain 07/18/2016 Right arm weakness Other musculoskeletal symptoms referable to limbs 07/18/2016 Contusion of right wrist, initial encounter 07/24/2016 Contusion of left knee, initial encounter 07/24/2016 Acute hepatitis B Viral hepatitis B without mention of hepatic coma, acute or unspecified, without mention of hepatitis delta 07/31/2016 Acute hepatitis B Viral hepatitis B without mention of hepatic coma, acute or unspecified, without mention of hepatitis delta 07/31/2016 Acute hepatitis B Viral hepatitis B without mention of hepatic coma, acute or unspecified, without mention of hepatitis delta 08/07/2016 Visit for screening mammogram Other screening mammogram 09/06/2016 Dermatitis Contact dermatitis and other eczema, due to unspecified cause 10/10/2016 Skin mass Localized superficial swelling, mass, or lump 10/24/2016 Annual physical exam Routine general medical examination at a health care facility 10/24/2016 Epilepsy, focal (HCC) Localization-related (focal) (partial) epilepsy and epileptic syndromes with simple partial seizures, without mention of intractable epilepsy 10/24/2016 Migraine without aura and without status migrainosus, not intractable Migraine without aura, without mention of intractable migraine without mention of status migrainosus 10/24/2016 Neck pain Cervicalgia 11/06/2016 Epilepsy, focal (HCC) Localization-related (focal) (partial) epilepsy and epileptic syndromes with simple partial seizures, without mention of intractable epilepsy 11/06/2016 History of traumatic brain injury Personal history of traumatic brain injury 11/06/2016 Acute recurrent maxillary sinusitis Acute maxillary sinusitis 11/13/2016 Suicidal ideation 11/13/2016 PTSD (post-traumatic stress disorder) Posttraumatic stress disorder 11/13/2016 Auditory hallucination Hallucinations 11/13/2016 Acute bacterial sinusitis Acute sinusitis, unspecified 11/13/2016 History of skin cancer Personal history of other malignant neoplasm of skin 11/13/2016 Chronic nonintractable headache, unspecified headache type 11/29/2016 JAN (generalized anxiety disorder) Generalized anxiety disorder 11/29/2016 History of traumatic brain injury Personal history of traumatic brain injury 11/29/2016 Hypothyroidism (acquired) Unspecified hypothyroidism 11/29/2016 Nonintractable epilepsy without status epilepticus, unspecified epilepsy type (HCC) 11/29/2016 Recurrent sinusitis Unspecified sinusitis (chronic) 11/29/2016 Nonintractable epilepsy without status epilepticus, unspecified epilepsy type (HCC) 12/28/2016 Encounter for therapeutic drug monitoring 12/28/2016 Acute hepatitis B Viral hepatitis B without mention of hepatic coma, acute or unspecified, without mention of hepatitis delta 12/28/2016 Annual physical exam Routine general medical examination at a health care facility 12/28/2016 Epilepsy, focal (HCC) Localization-related (focal) (partial) epilepsy and epileptic syndromes with simple partial seizures, without mention of intractable epilepsy 12/28/2016 Nonintractable epilepsy without status epilepticus, unspecified epilepsy type (HCC) 12/28/2016 Encounter for therapeutic drug monitoring 12/28/2016 Hyperlipidemia with target LDL less than 100 Other and unspecified hyperlipidemia 01/01/2017 Hyperlipidemia, unspecified hyperlipidemia type 01/03/2017 Nasal congestion Other diseases of nasal cavity and sinuses 02/18/2017 Chronic sinusitis, unspecified location 02/18/2017 History of traumatic brain injury Personal history of traumatic brain injury 02/27/2017 Nonintractable epilepsy without status epilepticus, unspecified epilepsy type (HCC) 02/27/2017 Chronic nonintractable headache, unspecified headache type 02/27/2017 Acute hepatitis B Viral hepatitis B without mention of hepatic coma, acute or unspecified, without mention of hepatitis delta 02/28/2017 History of traumatic brain injury Personal history of traumatic brain injury 02/28/2017 Nonintractable epilepsy without status epilepticus, unspecified epilepsy type (HCC) 02/28/2017 Hypothyroidism (acquired) Unspecified hypothyroidism 02/28/2017 Chronic nonintractable headache, unspecified headache type 02/28/2017 JAN (generalized anxiety disorder) Generalized anxiety disorder 02/28/2017 Gastroesophageal reflux disease, esophagitis presence not specified 02/28/2017 Screening for colon cancer Special screening for malignant neoplasms, colon 02/28/2017 Need for influenza vaccination Need for prophylactic vaccination and inoculation against influenza 02/28/2017 History of hepatitis B Personal history of other infectious and parasitic disease 02/28/2017 Hyperlipidemia, unspecified hyperlipidemia type 03/06/2017 Chronic sinusitis, unspecified location 03/25/2017 Smell disturbance Disturbances of sensation of smell and taste 03/25/2017 Chronic sinusitis, unspecified location 03/29/2017 Smell disturbance Disturbances of sensation of smell and taste 03/29/2017 Chronic sinusitis, unspecified location 04/30/2017 Dysosmia Disturbances of sensation of smell and taste 04/30/2017 History of traumatic brain injury Personal history of traumatic brain injury 05/06/2017 Nonintractable epilepsy without status epilepticus, unspecified epilepsy type (HCC) 05/06/2017 Gastroesophageal reflux disease, esophagitis presence not specified 05/06/2017 Chronic nonintractable headache, unspecified headache type 05/06/2017 Hypothyroidism (acquired) Unspecified hypothyroidism 05/08/2017 Paronychia of left index finger 05/12/2017 Lymphangitis 05/12/2017 Paronychia of finger, left 05/14/2017 Well woman exam with routine gynecological exam Routine gynecological examination 05/23/2017 Atrophic vaginitis Postmenopausal atrophic vaginitis 05/23/2017 Surgical menopause Symptomatic states associated with artificial menopause 05/23/2017 Gastroesophageal reflux disease, esophagitis presence not specified 07/11/2017 Chronic nonintractable headache, unspecified headache type 07/11/2017 History of traumatic brain injury Personal history of traumatic brain injury 07/18/2017 Nonintractable epilepsy without status epilepticus, unspecified epilepsy type (HCC) 07/18/2017 Hypothyroidism (acquired) Unspecified hypothyroidism 07/18/2017 Gastroesophageal reflux disease, esophagitis presence not specified 07/18/2017 Chronic nonintractable headache, unspecified headache type 07/18/2017 JAN (generalized anxiety disorder) Generalized anxiety disorder 07/18/2017 Onychomycosis Dermatophytosis of nail 07/18/2017 Hyperlipidemia, unspecified hyperlipidemia type 07/18/2017 Need for influenza vaccination Need for prophylactic vaccination and inoculation against influenza 07/18/2017 Screening for colon cancer Special screening for malignant neoplasms, colon 07/19/2017 Screening for malignant neoplasm of breast Breast screening, unspecified 09/16/2017 Hypothyroidism (acquired) Unspecified hypothyroidism 09/25/2017 JAN (generalized anxiety disorder) Generalized anxiety disorder 09/25/2017 Hyperlipidemia, unspecified hyperlipidemia type 09/25/2017 Chronic nonintractable headache, unspecified headache type 11/19/2017 Gastroesophageal reflux disease, esophagitis presence not specified 11/19/2017 History of traumatic brain injury Personal history of traumatic brain injury 11/19/2017 Nonintractable epilepsy without status epilepticus, unspecified epilepsy type (HCC) 11/19/2017 Right hip pain Pain in joint, pelvic region and thigh 11/30/2017 Hypothyroidism (acquired) Unspecified hypothyroidism 12/03/2017 JAN (generalized anxiety disorder) Generalized anxiety disorder 12/03/2017 Hyperlipidemia, unspecified hyperlipidemia type 12/03/2017 History of traumatic brain injury Personal history of traumatic brain injury 12/03/2017 Nonintractable epilepsy without status epilepticus, unspecified epilepsy type (HCC) 12/03/2017 Chronic nonintractable headache, unspecified headache type 12/03/2017 JAN (generalized anxiety disorder) Generalized anxiety disorder 12/03/2017 Annual physical exam Routine general medical examination at a health care facility 12/03/2017 Chronic nonintractable headache, unspecified headache type 02/06/2018 JAN (generalized anxiety disorder) Generalized anxiety disorder 02/06/2018 Hyperlipidemia, unspecified hyperlipidemia type 03/05/2018 Atrophic vaginitis Postmenopausal atrophic vaginitis 03/05/2018 History of traumatic brain injury Personal history of traumatic brain injury 03/05/2018 Nonintractable epilepsy without status epilepticus, unspecified epilepsy type (HCC) 03/05/2018 Hypothyroidism (acquired) Unspecified hypothyroidism 03/05/2018 Migraine without aura and without status migrainosus, not intractable Migraine without aura, without mention of intractable migraine without mention of status migrainosus 03/05/2018 Gastroesophageal reflux disease, esophagitis presence not specified 03/05/2018 Chronic nonintractable headache, unspecified headache type 03/05/2018 JAN (generalized anxiety disorder) Generalized anxiety disorder 03/05/2018 Annual physical exam Routine general medical examination at a health care facility 03/05/2018 History of traumatic brain injury Personal history of traumatic brain injury 03/06/2018 Annual physical exam Routine general medical examination at a health care facility 03/06/2018 Hyperlipidemia, unspecified hyperlipidemia type 03/06/2018 Hyperlipidemia, unspecified hyperlipidemia type 09/01/2018 Atrophic vaginitis Postmenopausal atrophic vaginitis 09/01/2018 History of traumatic brain injury Personal history of traumatic brain injury 09/01/2018 Nonintractable epilepsy without status epilepticus, unspecified epilepsy type (HCC) 09/01/2018 Hypothyroidism (acquired) Unspecified hypothyroidism 09/01/2018 Gastroesophageal reflux disease, esophagitis presence not specified 09/01/2018 Chronic nonintractable headache, unspecified headache type 09/01/2018 JAN (generalized anxiety disorder) Generalized anxiety disorder 09/01/2018 Screening for colon cancer Special screening for malignant neoplasms, colon 09/01/2018 Contusion of right hip, initial encounter 10/11/2018 Right hip pain Pain in joint, pelvic region and thigh 10/13/2018 Screening for colon cancer Special screening for malignant neoplasms, colon 10/13/2018 Screening for colon cancer Special screening for malignant neoplasms, colon 10/21/2018 History of traumatic brain injury Personal history of traumatic brain injury 11/03/2018 Nonintractable epilepsy without status epilepticus, unspecified epilepsy type (HCC) 11/03/2018 Nonintractable epilepsy without status epilepticus, unspecified epilepsy type (HCC) 11/06/2018 Hypothyroidism (acquired) Unspecified hypothyroidism 11/06/2018 Hyperlipidemia, unspecified hyperlipidemia type 11/06/2018 Epilepsy, focal (HCC) Localization-related (focal) (partial) epilepsy and epileptic syndromes with simple partial seizures, without mention of intractable epilepsy 11/12/2018 Nonintractable epilepsy without status epilepticus, unspecified epilepsy type (HCC) 11/12/2018 History of traumatic brain injury Personal history of traumatic brain injury 11/12/2018 Encounter for screening mammogram for malignant neoplasm of breast Other screening mammogram 11/24/2018 Special screening for malignant neoplasms, colon 12/09/2018 Special screening for malignant neoplasms, colon 12/09/2018 Annual physical exam Routine general medical examination at a health care facility 12/17/2018 Hypothyroidism (acquired) Unspecified hypothyroidism 01/19/2019 Special sensory attacks (HCC) Other convulsions 02/11/2019 Shakes Abnormal involuntary movements 02/11/2019 Neuralgia Neuralgia, neuritis, and radiculitis, unspecified 02/11/2019 Cerebral aneurysm, nonruptured 02/11/2019 Neck rigid Torticollis, unspecified 02/11/2019 Gastroesophageal reflux disease, esophagitis presence not specified 05/20/2019 Hypothyroidism (acquired) Unspecified hypothyroidism 05/21/2019 Atrophic vaginitis Postmenopausal atrophic vaginitis 05/21/2019 Gastroesophageal reflux disease, esophagitis presence not specified 05/21/2019 Chronic nonintractable headache, unspecified headache type 05/21/2019 JAN (generalized anxiety disorder) Generalized anxiety disorder 05/21/2019 Hyperlipidemia, unspecified hyperlipidemia type 05/21/2019 Flu vaccine need Need for prophylactic vaccination and inoculation against influenza 05/21/2019 Epilepsy, focal (HCC) Localization-related (focal) (partial) epilepsy and epileptic syndromes with simple partial seizures, without mention of intractable epilepsy 05/21/2019 Hypothyroidism (acquired) Unspecified hypothyroidism 05/22/2019 Hyperlipidemia, unspecified hyperlipidemia type 05/22/2019 Chronic nonintractable headache, unspecified headache type 05/25/2019 Hypothyroidism (acquired) Unspecified hypothyroidism 10/08/2019 Chronic nonintractable headache, unspecified headache type 10/08/2019 Epilepsy, focal (HCC) Localization-related (focal) (partial) epilepsy and epileptic syndromes with simple partial seizures, without mention of intractable epilepsy 10/09/2019 Atrophic vaginitis Postmenopausal atrophic vaginitis 10/09/2019 Hyperlipidemia, unspecified hyperlipidemia type 11/05/2019 Bilateral carpal tunnel syndrome Carpal tunnel syndrome 11/24/2019 Encounter for screening mammogram for malignant neoplasm of breast Other screening mammogram 12/03/2019 Chronic nonintractable headache, unspecified headache type 12/17/2019 Annual physical exam Routine general medical examination at a health care facility 12/17/2019 Epilepsy, focal (HCC) Localization-related (focal) (partial) epilepsy and epileptic syndromes with simple partial seizures, without mention of intractable epilepsy 12/17/2019 JAN (generalized anxiety disorder) Generalized anxiety disorder 12/17/2019 Hypothyroidism (acquired) Unspecified hypothyroidism 12/17/2019 Hyperlipidemia, unspecified hyperlipidemia type 12/17/2019 Chronic nonintractable headache, unspecified headache type 12/23/2019 Gastroesophageal reflux disease, esophagitis presence not specified 12/23/2019 JAN (generalized anxiety disorder) Generalized anxiety disorder 12/23/2019 Hyperlipidemia, unspecified hyperlipidemia type 2020 JAN (generalized anxiety disorder) Generalized anxiety disorder 03/24/2020 Hyperlipidemia, unspecified hyperlipidemia type 03/28/2020 Epilepsy, focal (HCC) Localization-related (focal) (partial) epilepsy and epileptic syndromes with simple partial seizures, without mention of intractable epilepsy 05/14/2020 Atrophic vaginitis Postmenopausal atrophic vaginitis 05/14/2020 Chronic nonintractable headache, unspecified headache type 05/14/2020 JAN (generalized anxiety disorder) Generalized anxiety disorder 06/01/2020 Gastroesophageal reflux disease Esophageal reflux 03/27/2022 Epilepsy, focal (HCC) Localization-related (focal) (partial) epilepsy and epileptic syndromes with simple partial seizures, without mention of intractable epilepsy 03/27/2022 JAN (generalized anxiety disorder) Generalized anxiety disorder 03/27/2022 Chronic nonintractable headache, unspecified headache type 03/27/2022 Encounter for screening mammogram for malignant neoplasm of breast Other screening mammogram 05/15/2022 Chronic nonintractable headache, unspecified headache type 06/11/2022 Personal history of colonic polyps 07/18/2022 Encounter for screening mammogram for malignant neoplasm of breast Other screening mammogram 04/23/2025 Migraine without aura and without status migrainosus, not intractable Migraine without aura, without mention of intractable migraine without mention of status migrainosus 04/24/2025 Chronic nonintractable headache, unspecified headache type 04/24/2025 JAN (generalized anxiety disorder) Generalized anxiety disorder 04/24/2025 Gastroesophageal reflux disease Esophageal reflux 04/24/2025 Epilepsy, focal (HCC) Localization-related (focal) (partial) epilepsy and epileptic syndromes with simple partial seizures, without mention of intractable epilepsy 04/24/2025 JAN (generalized anxiety disorder) Generalized anxiety disorder 04/24/2025 Chronic nonintractable headache, unspecified headache type 04/24/2025 JAN (generalized anxiety disorder) Generalized anxiety disorder 07/18/2013 History of traumatic brain injury Personal history of traumatic brain injury 07/18/2013 Elevated TSH Other abnormal blood chemistry 07/18/2013 Chest pain Chest pain, unspecified 07/18/2013 Migraines Migraine, unspecified, without mention of intractable migraine without mention of status migrainosus 07/18/2013 History of traumatic brain injury Personal history of traumatic brain injury 02/03/2014 Postoperative nausea and vomiting Nausea with vomiting 02/03/2014 Acute hepatitis Acute and subacute necrosis of liver 06/22/2016 Epilepsy, focal (HCC) Localization-related (focal) (partial) epilepsy and epileptic syndromes with simple partial seizures, without mention of intractable epilepsy 06/22/2016 Acute liver failure without hepatic coma 06/22/2016 Jaundice Jaundice, unspecified, not of 06/22/2016 Acute pancreatitis 06/22/2016 Auditory hallucination Hallucinations 06/22/2016 Idiopathic acute pancreatitis without infection or necrosis 06/22/2016 Colon cancer screening Special screening for malignant neoplasms, colon 12/09/2018 Polyp of colon Benign neoplasm of colon 12/09/2018 Diverticulosis Diverticulosis of colon (without mention of hemorrhage) 12/09/2018 Hemorrhoids Unspecified hemorrhoids without mention of complication 12/09/2018 Goals Goal Patient Goal Type Associated Problems Recent Progress Patient-Stated? Author Maintain a healthy diet, exercise regularly and maintain an ideal body weight General No Francine Huntley RMA Stay Tobacco Free Lifestyle No Frnacine Huntley RMA
--- OUTSIDE RECORDS SUMMARY | 2025-05-28 09:00 | XMS_ITS | Encounter Summary ---
Author Organization [place] [address] Care Team Providers Care Public Safety Director Name Role Phone Unavailable Primary Care Provider Unavailabl e Reason for Visit * Reason Onset Date Comments Medication Refill 04/25/2025 Encounter Details Date Type Department Care Team (Late st Contact Info) Description 04/24/2025 Refill [facility] [address] [place] [id number] Melissa Funes MD [address] [place] [address] Medication Refill Social History Tobacco Use Types [...] 05/21/2019 8:55 AM Francine Thompson RMA * Is the person blind or does he/she have serious difficulty seeing even when wearing glasses? Answer Date of Assessment Author No 05/21/2019 8:55 AM Francine Thompson RMA * Does this person have serious difficulty walking or climbing stairs? Answer Date of Assessment Author No 05/21/2019 8:55 AM EST Francine Huntley RMA * Does this person have difficulty dressing or bathing? Answer Date of Assessment Author No 05/21/2019 8:55 AM EST Francine Huntley RADHA * Because of a physical, mental or emotional condition, does this person have difficulty doing errands alone such as visiting a doctor's office or shopping? Answer Date of Assessment Author No 05/21/2019 8:55 AM EST Francine Huntley RADHA documented as of this encounter Mental Status * Because of a physical, mental or emotional condition, does this person have serious difficulty concentrating, remembering or making decisions? Answer Entry Date Author No 05/21/2019 8:55 AM EST Francine Huntley RMDeana documented in this encounter Plan of Treatment Upcoming Encounters Date Type Department Care Team (Late st Contact Info) Description 06/07/2025 10:00 AM EST Office Visit [facility] [address] [place] [address] Benjamin Terry MD [address] [address] documented as of this encounter Goals Goal Patient Goal Type Associated Problems Recent Progress Patient-Stated? Author Maintain a healthy diet, exercise regularly and maintain an ideal body weight General No Francine Huntley RMA Stay Tobacco Free Lifestyle No Francine Huntley RMA documented as of this encounter Visit Diagnoses Diagnosis Gastroesophageal reflux disease Esophageal reflux Epilepsy, focal (HCC) Localization-related (focal) (partial) epilepsy and epileptic syndromes with simple partial seizures, without mention of intractable epilepsy JAN (generalized anxiety disorder) Generalized anxiety disorder Chronic nonintractable headache, unspecified headache type documented in this encounter
== END 2025-05-25 23:59 | disposition home or self-care (01) ==
LOC: LAB.DROPOF 05-28 08:55
PROVIDERS: PCP Nurse Practitioner; Visit Provider Family Medicine
DX: F41.1 Generalized anxiety disorder (principal)
CPT/HCPCS: 80053